=== PATIENT | female | born 1985 | race Caucasian/White ===

== ENCOUNTER → 2018-06-17 | Outpatient (CLI) | payer OTHER ==
[~2018-06-17] MED LIST: CLR10 PO; LETR2TAB PO; MULT-506 PO; ONDA4TAB4 SL; ONDA4TAB7 SL
[2018-06-17 13:29] LABS: HEMATOCRIT 39.4 % (37-47); HEMOGLOBIN 13.5 g/dL (12.0-16.0); MEAN CELL VOLUME 92.1 fL (80-100); MEAN CORPUSCULAR HEMOGLOBIN 31.5 pg (25-34); MEAN CORPUSCULAR HGB CONC 34.3 g/dl (32-36); MEAN PLATELET VOLUME 9.8 fL (7.4-10.4); PLATELET COUNT 311 K/uL (130-400); RED CELL DISTRIBUTION WIDTH CV 12.8 % (11.5-14.5); RED CELL DISTRIBUTION WIDTH SD 43.2 fL (36.4-46.3)
[2018-06-17 14:01] LABS: BLOOD UREA NITROGEN 13 mg/dl (7-18); CARBON DIOXIDE 24 mmol/L (21-32); CREATININE 0.56 mg/dl (0.60-1.20); GLUCOSE 112 mg/dl (70-99); POTASSIUM 3.8 mmol/L (3.5-5.1); SODIUM 134 mmol/L (136-145)
== END | disposition home or self-care (01) ==
LOC: C.LAB 12:24
PROVIDERS: ATTEND Family Medicine
DX: R42 Dizziness and giddiness (principal)

== ENCOUNTER 2021-10-24 05:31 | Inpatient (IN) ==
--- NOTE | 2021-10-17 16:06 | Anesthesiology Consultation ---
Date of Service October 17, 2021 Assessment & Plan (1) Encounter for pre-operative examination: - COVID screening: Per eyeglass frame truer on 10/17/2021: Travel screen negative, no known COVID-19 positive contacts or current COVID-19 related symptoms. Surgeon arranging preop COVID testing, scheduled 10/22/2021 [facility]. Awaiting results. Chart Review Chart Review: entry level buyer initiated History Surgery Operation Date: 10/24/21 09:10 Proposed Procedures p Section (Delivery of Baby Through Abdominal Incision) - Kristin Pacheco, Height/Weight Height: 5 ft 3 in Weight: 83.915 kg Allergies Allergy/AdvReac Type Severity Reaction Status Date / Time metformin Allergy Mild Rash Verified 10/17/21 15:24 neomycin Allergy Mild Rash Verified 10/17/21 15:24 nickel Allergy Mild cellulitus Verified 10/17/21 15:24 type rash polymyxin B Allergy Mild Rash Verified 10/17/21 15:24 aspirin AdvReac Mild Fever Verified 10/17/21 15:24 Medications Home Medications Medication Instructions Recorded Confirmed Last Taken albuterol sulfate 90 mcg/actuation 1 puff INHALATION QID PRN 11/29/20 10/17/21 2 Weeks Ago aerosol inhaler ~11/18/20 calcium 500 mg tablet 500 mg PO PM 11/29/20 10/17/21 12/01/20 20:30 cholecalciferol (vitamin D3) 50 50 mcg PO HS 11/29/20 10/17/21 12/01/20 20:30 mcg (2,000 unit) tablet (Vitamin D3) coQ10 (ubiquinol) 200 mg capsule 200 mg PO HS 11/29/20 10/17/21 12/01/20 20:30 magnesium 250 mg tablet 250 mg PO HS 11/29/20 10/17/21 12/01/20 20:30 [id number]-FA 1 mg 1 tab PO HS 11/29/20 10/17/21 12/01/20 20:30 tablet simplex f 1 dose PO PM 03/28/21 10/17/21 Unknown breast pump #1 ea 08/12/21 10/17/21 Unknown acetaminophen 325 mg tablet 325 mg PO QID PRN 10/17/21 10/17/21 Unknown diphenhydramine HCl 25 mg capsule 25 mg PO HS PRN 10/17/21 10/17/21 Unknown (Benadryl) famotidine 20 mg tablet (Pepcid) 10 mg PO QAM 10/17/21 10/17/21 Unknown Past Medical History Medical History (Updated 10/17/21 @ 16:12 by Sosa Montenegro PA-C) Anxiety and depression Asthma "mild"/rare inhaler use Fifth disease as teen Hx of supraventricular tachycardia remote paroxysmal SVT several years ago s/p unremarkable holter/stress testing, "released" by cardio/no further follow-up recommended Hypothyroidism no longer on meds > resolved Infertility resulting from 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 fertilization Scarlet fever as child Stenosis, cervical spine "mild" Past Family History Family History Mother Family history of diabetes mellitus Heart disease Kidney disease Aunt Dyslipidemia Kidney disease Hypertension Grandmother Breast cancer Colorectal cancer Father Arthritis Grandmother (Maternal) Family hx of colon cancer Grandfather (Maternal) Family hx of colon cancer Other Depression Past Surgical History Surgical History (Updated 10/17/21 @ 16:10 by Sosa Montenegro PA-C) Family history of reaction to anesthesia Mother- severe nausea History of dilatation and curettage History of esophagogastroduodenoscopy (EGD) History of gynecologic surgery egg retrieval History of hysterosalpingogram 2013 History of surgery D&E 12/02/2020 Hx of wisdom tooth extraction Nausea and vomiting after administration of anesthetic agent Social History Smoking Status: Former smoker tobacco type: cigarettes Do You Dip or Chew Tobacco: No Smoking End Date: 2 yrs ago Hx Alcohol Use: No Hx Substance Use: No substance use type: does not use Testing Stress Test Date: 10/28/18 The treadmill exercise test was normal. METS 12.5. MPHR 121%.
--- NOTE | 2021-10-23 12:56 | History & Physical Report ---
Date of Service October 23, 2021 Assessment & Plan (1) Supervision of normal intrauterine in primigravida: Plan: Plan for section due to breech presentation. Reviewed entirety of consent form with patient in office, questions answered. History of Present Illness Chief Complaint: Primary Care Provider: Ghazala Fuchs, 36yo with EDC 10/29/21 scheduled for due to breech presentation. complicated by: IVF with ICSI * Echo-scheduled 07/08/21 - wnl (sln) *Growth US Q4wks @28wks *Weekly NSTs @36wks *Weekly BRANDI's @36wks Low lying placenta resolved at 24 week scan. (ak) AMA *Weekly NST's @ 36wks. BREECH PRESENTATION C/S SCHEDULED FOR 10/24/[address] BETHEA AND DR. FERRARI ASSIST NEEDS COVID TEST ON 10/22/2021-ORDERED Allergies Allergy/AdvReac Type Severity Reaction Status Date / Time metformin Allergy Mild Rash Verified 10/23/21 11:14 neomycin Allergy Mild Rash Verified 10/23/21 11:14 nickel Allergy Mild cellulitus Verified 10/23/21 11:14 type rash polymyxin B Allergy Mild Rash Verified 10/23/21 11:14 aspirin AdvReac Mild Fever Verified 10/23/21 11:14 Home Medications Medication Instructions Recorded Confirmed Type albuterol sulfate 90 mcg/actuation 1 puff INHALATION QID PRN 11/29/20 10/23/21 History aerosol inhaler calcium 500 mg tablet 500 mg PO PM 11/29/20 10/23/21 History cholecalciferol (vitamin D3) 50 50 mcg PO HS 11/29/20 10/23/21 History mcg (2,000 unit) tablet (Vitamin D3) coQ10 (ubiquinol) 200 mg capsule 200 mg PO HS 11/29/20 10/23/21 History magnesium 250 mg tablet 250 mg PO HS 11/29/20 10/23/21 History ykkaxrkt-[id number]-[id number]-FA 1 mg 1 tab PO HS 11/29/20 10/23/21 History tablet simplex f 1 dose PO PM 03/28/21 10/23/21 History breast pump #1 ea 08/12/21 10/23/21 Rx acetaminophen 325 mg tablet 325 mg PO QID PRN 10/17/21 10/23/21 History diphenhydramine HCl 25 mg capsule 25 mg PO HS PRN 10/17/21 10/23/21 History (Benadryl) famotidine 20 mg tablet (Pepcid) 10 mg PO QAM 10/17/21 10/23/21 History Patient History Medical History (Updated 10/17/21 @ 16:12 by Sosa Montenegro PA-C) Anxiety and depression Asthma "mild"/rare inhaler use Fifth disease as teen Hx of supraventricular tachycardia remote paroxysmal SVT several years ago s/p unremarkable holter/stress testing, "released" by cardio/no further follow-up recommended Hypothyroidism no longer on meds > resolved Infertility resulting from in-vitro fertilization Scarlet fever as child Stenosis, cervical spine "mild" Surgical History (Updated 10/17/21 @ 16:10 by Sosa Montenegro PA-C) Family history of reaction to anesthesia Mother- severe nausea History of dilatation and curettage History of esophagogastroduodenoscopy (EGD) History of gynecologic surgery egg retrieval History of hysterosalpingogram 2014 History of surgery D&E 12/02/2020 Hx of wisdom tooth extraction Nausea and vomiting after administration of anesthetic agent Family History Mother Family history of diabetes mellitus Heart disease Kidney disease Aunt Dyslipidemia Kidney disease Hypertension Grandmother Breast cancer Colorectal cancer Father Arthritis Grandmother (Maternal) Family hx of colon cancer Grandfather (Maternal) Family hx of colon cancer Other Depression Social History (Updated 03/28/21 @ 15:27 by Maryam Robledo) Smoking Status: Former smoker Second Hand Exposure: No; Hx Alcohol Use: No Hx Substance Use: No Preferred Language: Slovenian Communication Ability: Effective Director Of Media Required: No Beliefs That Will Affect Care: None marital status: marital status details: Cliff [phone] Current Living Situation: Spouse Current Living Situation Comment: lives with spouse and 1 dog. 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 No s/s chorio or abruption. Skin: no rashes, warm and dry Psychiatric: A+Ox3, euthymic affect Coding Level of Care Code None Diagnoses Supervision of normal intrauterine in primigravida Z34.00
[~2021-10-24 05:31] MED LIST changes: -CLR10 PO; +LACTATED RINGER'S 1,000 ML IV SCH; -LETR2TAB PO; -MULT-506 PO; -ONDA4TAB4 SL; -ONDA4TAB7 SL
[2021-10-24] MEDS ORDERED: CITRIC ACID/SODIUM CITRATE 15 ML UDC PO SCH (06:00)
[2021-10-24] MEDS ORDERED: ceFAZolin 2000MG 2,000 MG/15 ML SYR IV SCH (06:00)
[2021-10-24] MEDS ORDERED: LACTATED RINGER'S 1,000 ML IV SCH ×2 (06:00→09:17)
[2021-10-24] MEDS ORDERED: ceFAZolin 2,000 MG in SYRINGE 0 ML IV SCH (06:00)
[2021-10-24] MEDS ORDERED: MoRPHine SULFATE PF 1 MG/ML 10 ML AMP/VIAL ONE (07:13)
--- NOTE | 2021-10-24 07:25 | History & Physical Bridge Note ---
Date of Service October 24, 2021 History & Physical Bridge Note I have examined the patient, reviewed the History & Physical and in the interval since the performance of the History & Physical I have noted the following changes of clinical significance: no changes noted
[2021-10-24] MEDS ORDERED: PHENYLEPHRINE 100MCG/ML 5ML SYR ONE (08:32)
[2021-10-24] MEDS ORDERED: ePHEDrine sulfate 50 MG/ML SYR ONE (08:32)
[2021-10-24] MEDS ORDERED: LACTATED RINGER'S 500 ML IV PRN (08:38)
[2021-10-24] MEDS ORDERED: NALBUPHINE HCL INJ 10 MG/ML AMP IV PRN (08:38)
[2021-10-24] MEDS ORDERED: diphenhydrAMINE 50 MG/ML VIAL IV PRN (08:38)
[2021-10-24] MEDS ORDERED: NALOXONE HCL 0.08 MG in SYRINGE 1.8 ML IV PRN (08:38)
[2021-10-24] MEDS ORDERED: MoRPHine SULFATE PF 1 MG/ML 10 ML AMP/VIAL INT SPINAL ONE (08:38)
[2021-10-24] MEDS ORDERED: NALOXONE HCL 1 MG in SODIUM CHLORIDE 0.9% 1000ML 1,000 ML IV PRN (08:38)
[2021-10-24] MEDS ORDERED: NALOXONE HCL 0.4 MG/1 ML VIAL/CARP IV PRN (08:38)
[2021-10-24] MEDS ORDERED: ePHEDrine sulfate 50 MG/ML AMP IV PRN ×2 (08:38→08:39)
[2021-10-24] MEDS ORDERED: ATROPINE SULFATE 0.1 MG/ML 10ML SYR IV PRN (08:39)
[2021-10-24] MEDS ORDERED: fentaNYL citrate 100 MCG/2 ML VIAL IV PRN (08:39)
[2021-10-24] MEDS ORDERED: HYDROmorphone INJ 2 MG/ML SYR/VIAL IV PRN (08:39)
[2021-10-24] MEDS ORDERED: SODIUM CHLORIDE 0.9% 1000ML 1,000 ML IV SCH (08:45)
[2021-10-24] MEDS ORDERED: NO NARCOTICS OR SEDATIVES SCH (08:45)
[2021-10-24] MEDS ORDERED: DC INTRASPINAL MORPHINE SCH (08:45)
[2021-10-24] MEDS ORDERED: KETOROLAC 30 MG/ML VIAL ONE (08:48)
[2021-10-24 08:55] LABS: Base Excess Cord Arterial Bld -1.6 mEq/L (-9-1.8); CO2 Cord Arterial Blood 57 mmHg (39.1-73.5); HCO3 Cord Arterial Blood 26 mmol/L (19.7-28.5); PO2 Cord Arterial Blood 14 mmHg (4.1-31.7); pH Cord Arterial Blood 7.28 (7.1-7.38)
[2021-10-24 08:58] LABS: Base Excess Cord Venous Blood -0.7 mEq/L (-7.7-1.9); Cord Venous Blood HCO3 24 mmol/L (18.4-26.8); Cord Venous Blood PCO2 42 mmHg (30.4-57.2); Cord Venous Blood PO2 28 mmHg (14.1-43.3); Cord Venous Blood pH 7.38 (7.20-7.44); O2 Saturation Cord Venous Bld 61.6 % (<68)
[2021-10-24 09:04] LABS: Oxygen Sat Cord Arterial Blood < 60.0 % (<60)
--- NOTE | 2021-10-24 09:07 | Operative Report ---
PG Post Operative Report Pre & Post Diagnosis Operation Date: 10/24/21 07:30 Pre-Op Diagnosis: Breech Presentation Post-Op Diagnosis: Breech Presentation I identified the patient and participated in the time-out.: Yes Procedure Operation Date: 10/24/21 07:30 Actual Procedures Primary Low Transverse Section; Live Female at 0808 in OR # 3(Bilateral) - Kristin Pacheco DO Surgeon Kristin Pacheco DO [employer]le [employer] Laborer Milton Silver MD Estimated Blood Loss 600 Findings Consistent with Post-Op Diagnosis Viable female , Apgars 8/9. Weight 9lb 0/3 oz. Normal appearing uterus, tubes, ovaries. Specimens Placenta, cord blood, cord gas. Drains Gibson clear yellow. Anesthesia Type Spinal Complications none Disposition Accompanied Patient To Recovery: No Indications 36yo @ 39 2/7, breech presentation. Description of Procedure The patient was seen in her labor and delivery room, risks benefits and alternatives to surgery were reviewed. Informed consent obtained. Questions were answered. She was taken to the operating room, spinal anesthesia was administered. She was then prepared and draped in the usual sterile fashion in the supine position with a leftward tilt. Timeout was confirmed. A Pfannenstiel skin incision was made with a scalpel, and carried through to the underlying layer of fascia. Fascia was nicked at midline, and this incision was extended bilaterally. The superior aspect of the fascial incision was grasped with German clamps x2, elevated off the underlying rectus abdominis muscles, and dissected sharply and bluntly. In similar fashion, the inferior aspect of the fascial incision was dissected. The rectus abdominis muscles were , and the peritoneum was entered bluntly digitally. This was extended bilaterally. The bladder flap was taken down carefully using Metzenbaum scissors. Using a new scalpel, a low transverse uterine incision was created. Clear amniotic fluid noted. The infant was delivered from a complete breech presentation. One leg delivered, followed by second leg swept medially, then abdomen, then bilateral arms were swept medially for delivery, then the head was delivered. Spontaneous cry on the field. The cord was doubly clamped and cut, and the was handed off to the waiting dope house operator helper. A segment was retained for cord gases. Cord blood was obtained. The placenta was delivered spontaneously intact. The uterus was exteriorized, and cleared of all clots and debris. The hysterotomy incision was reapproximated using 0 Vicryl in a running locked stitch. A second layer of the same suture was used to imbricate the incision. Posterior uterus was evaluated and normal. The uterus was returned to the abdomen, and gutters were cleared of clots and debris. Excellent hemostasis was observed. The fascial incision was reapproximated using 0 Vicryl in a running stitch. The subcutaneous tissue was irrigated, and reapproximated using 2-0 plain gut in a running stitch. The skin was reapproximated using 4-0 Vicryl in a running subcuticular stitch. Steri-Strips and a bandage were applied. The patient tolerated the procedure well, and will be taken to the recovery area in stable and good condition. I attest to the content of the Intraoperative Record and any orders documented therein. Any exceptions are noted below. OB Procedure Charges 78630
[2021-10-24] MEDS ORDERED: SENNA 8.6 MG TAB PO PRN (09:17)
[2021-10-24] MEDS ORDERED: FAMOTIDINE 10 MG TABLET PO PRN (09:17)
[2021-10-24] MEDS ORDERED: PROMETHAZINE HCL 25 MG in SODIUM CHLORIDE 0.9% 50 ML IV PRN (09:17)
[2021-10-24] MEDS ORDERED: ALBUTEROL HFA 8 GM INHALER INH PRN (09:17)
[2021-10-24] MEDS ORDERED: HYDROCORTISONE ACETATE 25 MG SUPP PR PRN (09:17)
[2021-10-24] MEDS ORDERED: ONDANSETRON INJ 2 MG/ML 2 ML VIAL IV PRN (09:17)
[2021-10-24] MEDS ORDERED: SUPERCREAM 0.870% 15 GM JAR EXT PRN (09:17)
[2021-10-24] MEDS ORDERED: BENZOCAINE 20% AER SPR 82.5 GM CAN EXT PRN (09:17)
[2021-10-24] MEDS ORDERED: DIPHTHERIA/TETANUS/PERTUSSIS 0.5 ML SYR/VIAL IM ONE (10:00)
[2021-10-24] MEDS: OXYTOCIN 30 UNITS in LACTATED RINGER'S 1,000 ML IV SCH ×2 (11:32→17:19)
[2021-10-24] MEDS: SIMETHICONE 80 MG CHEW PO SCH ×3 (15:33→21:32)
[2021-10-24] MEDS: KETOROLAC 30 MG/ML VIAL IV PRN (15:33)
--- NOTE | 2021-10-24 16:13 | Anesthesiology Progress Note ---
Date of Service October 24, 2021 Anesthesia Post Procedure Vital Signs Vital Signs: Temp Pulse Resp BP Pulse Ox 10/24/21 11:18 92 H 123/62 99 10/24/21 11:13 89 99 10/24/21 11:09 103 H 123/63 10/24/21 11:08 101 H 98 10/24/21 11:03 99 H 99 10/24/21 11:00 36.6 C 16 10/24/21 10:59 94 H 115/58 L 10/24/21 10:58 93 H 99 10/24/21 10:53 93 H 99 10/24/21 10:52 100 H 93 10/24/21 10:49 85 127/79 10/24/21 10:48 90 97 10/24/21 10:43 86 99 10/24/21 10:39 93 H 128/72 10/24/21 10:38 97 H 98 10/24/21 10:33 107 H 100 10/24/21 10:29 91 H 136/67 10/24/21 10:28 89 98 10/24/21 10:23 95 H 99 10/24/21 10:18 93 H 98 10/24/21 10:13 87 99 10/24/21 10:09 101 H 118/61 10/24/21 10:08 103 H 99 10/24/21 10:03 86 98 10/24/21 10:00 36.6 C 16 10/24/21 09:59 101 H 109/69 10/24/21 09:58 86 99 10/24/21 09:53 93 H 100 10/24/21 09:50 16 100 10/24/21 09:49 96 H 123/59 L 10/24/21 09:48 95 H 99 10/24/21 09:43 104 H 98 10/24/21 09:40 36.7 C 18 10/24/21 09:39 94 H 123/80 10/24/21 09:38 90 100 10/24/21 09:33 82 99 10/24/21 09:30 16 100 10/24/21 09:29 94 H 125/78 10/24/21 09:28 93 H 98 10/24/21 09:23 80 98 10/24/21 09:20 36.7 C 114 H 18 146/80 H 10/24/21 09:18 89 99 10/24/21 09:13 88 100 10/24/21 09:10 92 H 123/65 10/24/21 09:09 93 H 92 10/24/21 09:08 93 H 96 10/24/21 09:03 81 100 10/24/21 08:59 86 104/70 10/24/21 08:58 84 98 10/24/21 07:34 78 100 10/24/21 07:29 81 99 10/24/21 07:24 81 97 10/24/21 07:19 91 H 97 10/24/21 07:04 83 129/83 10/24/21 05:50 37.5 C 18 10/24/21 05:48 104 H 131/80 Pain Intensity Abdomen: Pain Intensity: 2 Transfer of Care Handoff Completed per policy Notes Mental Status: alert / awake / arousable and participated in evaluation Patient Amnestic to Procedure: Yes Nausea / Vomiting: adequately controlled Pain: adequately controlled Airway Patency, RR, SpO2: stable & adequate BP & HR: stable & adequate Hydration State: stable & adequate Neuraxial Anesthesia: was administered and sensory block is resolving Anesthetic Complications: no major complications apparent
[2021-10-24] MEDS ORDERED: CALCIUM CARBONATE 500 MG CHEWABLE TAB PO PRN (16:24)
[2021-10-24] MEDS: FAMOTIDINE 20 MG TAB PO SCH (17:13)
[2021-10-24 17:34] LABS: Hematocrit (blood only) 28.5 % (37-47); Hemoglobin 9.4 g/dL (12.0-16.0)
[2021-10-24] MEDS ORDERED: LACTATED RINGER'S 1,000 ML IV ONE (17:49)
[2021-10-24] MEDS ORDERED: oxyCODONE/ACETAMINOPHEN 5mg/325mg TAB PO STA (17:57)
[2021-10-24] MEDS: oxyCODONE/ACETAMINOPHEN 5mg/325mg TAB PO PRN (18:07)
[2021-10-24 18:45] LABS: Alanine Aminotransferase 24 (12-78); Albumin Level 1.8 gm/dl (3.4-5.0); Aspartate Aminotransferase 24 U/L (15-37); BUN Creatinine Ratio 29.2 (10-20); Blood Urea Nitrogen 11 mg/dl (7-18); Calcium 8.1 mg/dl (8.5-10.1); Carbon Dioxide 26 mmol/L (21-32); Chloride 105 mmol/L (98-107); Creatinine Clr Calc Pharmacy 222.6 ml/min; Est GFR (African American) > 150.0 ml/min; Est GFR (Non-African American) 139.7 ml/min; Glucose 75 mg/dl (70-99); Potassium 3.1 mmol/L (3.5-5.1); Sodium 137 mmol/L (136-145)
[2021-10-24 18:48] LABS: Albumin Globulin Ratio 0.6 (0.9-2); Alkaline Phosphatase 119 U/L (45-117); Bilirubin,Total 0.4 mg/dl (0.2-1); Total Protein 4.8 gm/dl (6.4-8.2)
[2021-10-24] MEDS ORDERED: METOCLOPRAMIDE HCL INJ 5 MG/ML 2 ML VIAL IV STA (19:35)
--- NOTE | 2021-10-24 20:50 | CT Scan Report ---
CT head/brain wo con CLINICAL HISTORY: 36 years-old Female with Acute OBRIEN. Acute headache TECHNIQUE: Multiple axial CT images of the head were obtained without contrast. A dose lowering tech nique was utilized adhering to the principles of ALARA. CT DOSE: 537.48 mGy.cm COMPARISON: None. FINDINGS: No acute intracranial hemorrhage, midline shift, intra-axial mass, hydrocephalus, territorial ischemi a or abnormal extra-axial collection. 4 mm calcification is noted along the anterior margin of the ri ght middle cranial fossa. The calvarium is intact. The paranasal sinuses, mastoid air cells, and middle ear cavities are clear . IMPRESSION: No acute intracranial abnormality. ACT 112: Negative or not required by law. The above report was generated using voice recognition software. It may contain grammatical, syntax o r spelling errors. Electronically signed by: Otoniel Willis M.D. 10/24/2021 8:48 PM
[2021-10-24] MEDS: DOCUSATE SODIUM 100 MG CAP PO SCH (21:32)
[2021-10-24] MEDS: MAGNESIUM OXIDE 400 MG TAB PO SCH (21:32)
[2021-10-25] MEDS: KETOROLAC 30 MG/ML VIAL IV PRN (02:22)
[2021-10-25] MEDS ORDERED: KETOROLAC 30 MG/ML VIAL IV PRN (02:39)
[2021-10-25] MEDS ORDERED: diphenhydrAMINE 50 MG/ML VIAL IV PRN (02:39)
[2021-10-25] MEDS ORDERED: oxyCODONE/ACETAMINOPHEN 5mg/325mg TAB PO PRN (02:39)
[2021-10-25] MEDS ORDERED: diphenhydrAMINE Capsule 25 MG CAP PO PRN (02:39)
[2021-10-25 06:28] LABS: Basophils # (auto) 0.01 K/uL (0-0.2); Basophils % (auto) 0.1 %; Eosinophils # (auto) 0.09 K/uL (0-0.5); Eosinophils % (auto) 0.8 %; Hematocrit (blood only) 31.4 % (37-47); Immature Granulocytes # (auto) 0.04 K/uL (0.00-0.02); Immature Granulocytes % (auto) 0.3 %; Lymphocytes # (auto) 1.72 K/uL (1.2-3.4); Lymphocytes % (auto) 14.7 %; Mean Corpuscular Hgb Conc 31.8 g/dL (32-36); Mean Corpuscular Volume 97.2 fL (80-100); Mean Platelet Volume 9.4 fL (7.4-10.4); Monocytes % (auto) 6.8 %; Neutrophils # (auto) 9.03 K/uL (1.4-6.5); Neutrophils % (auto) 77.3 %; Platelet Count 223 K/uL (130-400); RDW Coefficient of Variation 14.5 % (11.5-14.5); RDW Standard Deviation 51.8 fL (36.4-46.3); Red Blood Count 3.23 M/uL (4.2-5.4); White Blood Count 11.69 K/uL (4.8-10.8)
[2021-10-25] MEDS: IBUPROFEN 600 MG TAB PO PRN ×4 (08:01→21:04)
[2021-10-25] MEDS: PRENATAL VITAMIN 1 TAB PO SCH (08:02)
[2021-10-25] MEDS: FAMOTIDINE 20 MG TAB PO SCH (08:02)
[2021-10-25] MEDS: oxyCODONE/ACETAMINOPHEN 5mg/325mg TAB PO PRN ×4 (08:02→21:04)
[2021-10-25] MEDS: DOCUSATE SODIUM 100 MG CAP PO SCH ×2 (08:02→21:04)
[2021-10-25] MEDS: FERROUS SULFATE 325 MG TAB PO SCH (08:02)
[2021-10-25] MEDS: SIMETHICONE 80 MG CHEW PO SCH ×4 (08:02→21:03)
--- NOTE | 2021-10-25 08:37 | Obstetrical Progress Note ---
Date of Service October 25, 2021 Assessment & Plan (1) Encounter for care and examination after delivery: Plan: 36yo POD 1 s/p LTCS due to breech at 39 weeks 2 days -Continue routine care -Vitals reviewed- HDS, afebrile -GBS neg -Encourage ambulation, regular diet -Pain control with ibuprofen, acetaminophen PRN -Encourage -Hgb 10 -discharge likely tomorrow -F/u in 6 weeks with OB after discharge Admission and Anticipated Discharge Date Admission Date: October 24, 2021 Supervising Physician Co-Signing Physician Notes Patient seen and evaluated and agree with the above findings and plan. OBRIEN has improved and normal head CT noted. Good UOP. Routine care Subjective Ambulation: yes, to bathroom twice with pain Voiding: yes, de guzman removed 2:30am today Passing Gas: yes BM: not yet Diet Tolerance: regular, had bits of dinner last night, will try to eat more today Lochia: snall Feeding Type: Current Pain Level(1-10): 4 Review of Systems Review of Systems: Mild chills when ambulating. Denies fever. Denies SOB. Denies chest pain. Denies breast pain or discharge. Denies dysuria. Mild headache, rates it a 2/10, improved from overnight. Denies back pain. Mild nausea. Denies vomiting. Physical Exam Physical Exam: General: Alert, oriented, mild distress Cardiac: Regular rate and rhythm, normal S1, S2. No murmurs appreciated. Respiratory: Clear to auscultation, symmetric chest rise and fall. No wheezes or crackles. No increased work of breathing or accessory muscle use Abdomen: Soft, nontender, nondistended. Fundus firm and palpable at umbilicus. No guarding or rebound. Skin: bandages removed, steri strips intact, incision healing well with no signs of infection Extremities: Warm, dry. No lower extremity edema, erythema or swelling. Results & Data ([facility]) Vital Signs (Past 12 Hours) Vital Signs Temp Pulse Resp BP Pulse Ox 10/25/21 04:05 36.8 C 86 16 124/71 97 10/25/21 02:38 18 99 10/25/21 01:15 16 99 10/25/21 00:15 18 99 10/24/21 23:30 36.9 C 87 16 99/66 L 96 10/24/21 23:15 18 96 10/24/21 22:25 18 96 10/24/21 21:25 16 97 Resident Activity Tracking Resident Involvement: Resident Care Provided Care Provided: OB Delivery
[2021-10-25] MEDS ORDERED: bisacodyL 5 MG TABEC PO SCH (20:00)
[2021-10-25] MEDS: MAGNESIUM OXIDE 400 MG TAB PO SCH (21:04)
[2021-10-26] MEDS: oxyCODONE/ACETAMINOPHEN 5mg/325mg TAB PO PRN ×2 (00:54→06:15)
[2021-10-26] MEDS: IBUPROFEN 600 MG TAB PO PRN ×5 (00:55→19:30)
[2021-10-26 06:19] LABS: Hematocrit (blood only) 28.9 % (37-47); Hemoglobin 9.2 g/dL (12.0-16.0)
[2021-10-26] MEDS: SIMETHICONE 80 MG CHEW PO SCH ×4 (08:22→21:57)
[2021-10-26] MEDS: FERROUS SULFATE 325 MG TAB PO SCH (08:22)
[2021-10-26] MEDS: DOCUSATE SODIUM 100 MG CAP PO SCH ×2 (08:22→21:57)
[2021-10-26] MEDS: PRENATAL VITAMIN 1 TAB PO SCH (08:22)
[2021-10-26] MEDS: FAMOTIDINE 20 MG TAB PO SCH (08:23)
--- NOTE | 2021-10-26 08:25 | Obstetrical Progress Note ---
Date of Service October 26, 2021 Assessment & Plan (1) Encounter for care and examination after delivery: POD#2 doing well. Having some difficulty with pain control at incision. Incision itself looks good, however surrounding erythema - concern for cellulitis - will start PO abx Keflex. She is agreeable. Will also do scheduled ibuprofen/tylenol + 5mg oxycodone. Would like to stay until tomorrow. Subjective Ambulation: ambulating normally Voiding: no voiding problems Diet Tolerance:: regular diet Lochia:: Moderate Review of Systems All systems reviewed & are unremarkable except as noted in HPI & below Physical Exam Constitutional WD/WN, vitals as above no acute distress Respiratory normal respiratory effort Cardiovascular Rate/Rhythm: regular rate and regular rhythm Gastrointestinal (Abdomen) Inspection/Auscultation: abdomen normal to inspection; abdomen not distended Percussion/Palpation: abdomen soft Incision CDI, but with red [id number] skin surrounding Genitourinary OB Exam Abdomen: + fundal height Fundus: + firm; not tender Results & Data ([facility]) Vital Signs (Past 12 Hours) Vital Signs Temp Pulse Resp BP 10/26/21 00:55 36.5 C 86 18 116/76
[2021-10-26] MEDS ORDERED: IBUPROFEN 600 MG TAB PO SCH (08:30)
[2021-10-26] MEDS ORDERED: bisacodyL 10 MG SUPP PR PRN (08:54)
[2021-10-26] MEDS: oxyCODONE HCL IR 5 MG TAB (IMMEDIATE RELEASE) PO PRN ×3 (11:20→19:30)
[2021-10-26] MEDS: ACETAMINOPHEN 500 MG TAB PO PRN ×3 (11:30→19:29)
[2021-10-26] MEDS: cephALEXin 500 MG CAP PO SCH ×4 (11:30→21:57)
[2021-10-26] MEDS ORDERED: ACETAMINOPHEN 500 MG TAB PO SCH (14:00)
[2021-10-26] MEDS ORDERED: Nursing to Pharmacy Communication SCH (14:45)
[2021-10-26] MEDS: MAGNESIUM OXIDE 400 MG TAB PO SCH (21:57)
[2021-10-27] MEDS: oxyCODONE HCL IR 5 MG TAB (IMMEDIATE RELEASE) PO PRN ×6 (00:13→21:34)
[2021-10-27] MEDS: IBUPROFEN 600 MG TAB PO PRN ×6 (00:13→21:34)
[2021-10-27] MEDS: ACETAMINOPHEN 500 MG TAB PO PRN ×5 (04:16→21:34)
--- NOTE | 2021-10-27 06:31 | Obstetrical Progress Note ---
Date of Service October 27, 2021 Assessment & Plan (1) Encounter for care and examination after delivery: Plan: 36yo POD 3 s/p LTCS due to breech at 39 weeks 2 days -Continue routine care -Vitals reviewed- HDS, afebrile -GBS neg -Encourage ambulation, regular diet -Pain control with ibuprofen, acetaminophen, oxy -Encourage -Hgb 9.2 yesterday, stable -cont. Keflex for cellulitis, will finish course in outpatient setting -F/u in 6 weeks with OB after discharge Admission and Anticipated Discharge Date Admission Date: October 24, 2021 Supervising Physician Co-Signing Physician Notes Resident Physician Supervision Note: I interviewed and examined the patient. Discussed with Dr. Carson and agree with findings and plan as documented in the note. Any exceptions or clarifications are listed here: POD#3 doing well. Will plan to send home with keflex for c ellulitis - incision itself looks healthy, does not appear to be infected. Rx percocet sent. Reviewed instructions. She plans to follow up with prescribing PCP for anxiety. Documented By: Kristin Pacheco, Subjective Ambulation: yes Voiding: yes Passing Gas: yes BM: not yet Diet Tolerance: regular Lochia: small Feeding Type: Current Pain Level(1-10): 3 with medication, mostly on ambulation Review of Systems Review of Systems: Denies fever and chills. Mild SOB when walking, may be due to deconditioning Denies chest pain. Denies breast pain or discharge. Denies dysuria. Mild headache, improving. Mild nausea. Denies vomiting. Physical Exam Physical Exam: General: Alert, oriented, mild distress Cardiac: Regular rate and rhythm, normal S1, S2. No murmurs appreciated. Respiratory: Clear to auscultation, symmetric chest rise and fall. No wheezes or crackles. No increased work of breathing or accessory muscle use Abdomen: Soft, nontender, nondistended. Fundus firm and palpable at umbilicus. No guarding or rebound. Skin: incision healing well with no signs of infection at incision site, +surrounding abdominal cellulitis marked with ink yesterday which may be mildly extending past borders but only mildly TTP with deep palpation Extremities: Warm, dry. No lower extremity edema, erythema or swelling. Results & Data ([facility]) Vital Signs (Past 12 Hours) Vital Signs Temp Pulse Resp BP Pulse Ox 10/27/21 00:05 36.8 C 80 20 126/82 98 Resident Activity Tracking Resident Involvement: Resident Care Provided Care Provided: OB Delivery
[2021-10-27] MEDS: DOCUSATE SODIUM 100 MG CAP PO SCH ×2 (08:37→21:33)
[2021-10-27] MEDS: PRENATAL VITAMIN 1 TAB PO SCH (08:37)
[2021-10-27] MEDS: SIMETHICONE 80 MG CHEW PO SCH ×4 (08:37→21:33)
[2021-10-27] MEDS: FERROUS SULFATE 325 MG TAB PO SCH (08:37)
[2021-10-27] MEDS: MAGNESIUM HYDROXIDE SUSP 30 ML UDC PO PRN ×3 (08:38→21:36)
[2021-10-27] MEDS: cephALEXin 500 MG CAP PO SCH ×2 (08:40→13:31)
--- NOTE | 2021-10-27 13:58 | Obstetrical Progress Note ---
Date of Service October 27, 2021 Asked to assess incision as the redness seems to be spreading I discussed with the patient had marked the incision earlier in the morning on rounds and it seems to be spreading beyond this on inspection today there is diffuse redness around the incision there is no breakage or defects in the incision I see no signs of necrotizing fasciitis this is worsened despite being on Keflex I will switch her to an IV antibiotic regimen Unasyn we'll see how she responds to this Assessment & Plan Admission and Anticipated Discharge Date Admission Date: October 24, 2021 Results & Data ([facility]) Vital Signs (Past 12 Hours) Vital Signs Temp Pulse Resp BP Pulse Ox 10/27/21 10:16 97.2 F L 84 20 129/86 98 10/27/21 08:05 97.2 F L 84 20 129/86 PG Care Time/CCT Total # of Minutes Spent Total Time Spent with Patient: Total time spent is greater than 50% in coordination of care (as documented) at patient's floor/unit and/or counseling patient: Coding Level of Care Code None
[2021-10-27] MEDS: AMPICILLIN/SULBACTAM SOD 1,500 MG in 0.9 % SODIUM CHLORIDE 100 ML IV SCH ×2 (15:02→20:46)
[2021-10-27] MEDS: FAMOTIDINE 20 MG TAB PO SCH (15:07)
[2021-10-27] MEDS: MAGNESIUM OXIDE 400 MG TAB PO SCH (21:37)
[2021-10-28] MEDS: IBUPROFEN 600 MG TAB PO PRN ×5 (02:00→20:12)
[2021-10-28] MEDS: AMPICILLIN/SULBACTAM SOD 1,500 MG in 0.9 % SODIUM CHLORIDE 100 ML IV SCH ×4 (02:00→20:04)
[2021-10-28] MEDS: ACETAMINOPHEN 500 MG TAB PO PRN ×5 (02:00→20:13)
[2021-10-28] MEDS: oxyCODONE HCL IR 5 MG TAB (IMMEDIATE RELEASE) PO PRN ×5 (02:01→20:13)
--- NOTE | 2021-10-28 07:57 | Obstetrical Progress Note ---
Date of Service October 28, 2021 Assessment & Plan (1) Encounter for care and examination after delivery: Plan: 36yo POD 4 s/p LTCS due to breech at 39 weeks 2 days -Continue routine care -Vitals reviewed- HDS, afebrile -GBS neg -Encourage ambulation, regular diet -Pain control with ibuprofen, acetaminophen, oxy -Encourage -Hgb 9.2 (12/), stable -cont. Unasyn; will most likely discharge on Augmentin since Keflex did not seem to work -discharge possibly today -F/u in 6 weeks with OB after discharge Admission and Anticipated Discharge Date Admission Date: October 24, 2021 Supervising Physician Co-Signing Physician Notes Resident Physician Supervision Note: I was present with Dr. Carson during the history and exam. I discussed the case with the resident and agree with the findings and plan as documented in the note. Any exceptions or clarifications are listed here: [None] Documented By: Marimar Suarez MD, FACOG Subjective Ambulation: yes Voiding: yes Passing Gas: yes BM: yes Diet Tolerance: regular Lochia: small Feeding Type: Current Pain Level(1-10): 2, mostly near incision site Review of Systems Review of Systems: Denies fever and chills. Denies SOB. Denies chest pain. Denies breast pain or discharge. Denies dysuria. Mild overnight headache, improving. Mild nausea. Denies vomiting. Physical Exam Physical Exam: General: Alert, oriented, mild distress Cardiac: Regular rate and rhythm, normal S1, S2. No murmurs appreciated. Respiratory: Clear to auscultation, symmetric chest rise and fall. No wheezes or crackles. No increased work of breathing or accessory muscle use Abdomen: Soft, nontender, nondistended. Fundus firm and palpable 2cm below umbilicus. No guarding or rebound. Skin: incision healing well with no signs of infection at incision site, +surrounding abdominal cellulitis marked with ink yesterday significantly improved today with less erythema, decreased warmth, and minimally tender to deep palpation Extremities: Warm, dry. No lower extremity edema, erythema or swelling. Results & Data ([facility]) Vital Signs (Past 12 Hours) Vital Signs Temp Pulse Resp BP Pulse Ox 10/28/21 01:50 36.8 C 92 H 18 128/80 10/27/21 20:20 36.8 C 79 18 131/81 99 Resident Activity Tracking Resident Involvement: Resident Care Provided Care Provided: OB Delivery
[2021-10-28] MEDS: DOCUSATE SODIUM 100 MG CAP PO SCH ×2 (08:19→20:04)
[2021-10-28] MEDS: SIMETHICONE 80 MG CHEW PO SCH ×4 (08:19→20:04)
[2021-10-28] MEDS: PRENATAL VITAMIN 1 TAB PO SCH (08:19)
[2021-10-28] MEDS: FERROUS SULFATE 325 MG TAB PO SCH (08:19)
[2021-10-28] MEDS: FAMOTIDINE 20 MG TAB PO SCH (08:20)
--- NOTE | 2021-10-28 16:21 | Communication Note ---
Date of Service: October 28, 2021 I was asked to re-examine the patient's abdomen as the redness surrounding the incision has extended to the skin on the sides of her abdomen. Per Dr. Perez's evaluation earlier, since starting Unasyn the erythema surrounding the incision has markedly decreased. She has a fine red raised rash around her umbilicus which appeared after she was starting on Keflex. This area is still a little pruritic but is getting better. The redness on her abdomen extends around to her lower back but ends abruptly at the edge of her underwear. patient appears well and has no pain or itching outside of expected incisional discomfort. will continue Unasyn for now and re-evaluate in the morning. Patient and are agreeable to this plan.
--- NOTE | 2021-10-28 16:23 | Communication Note ---
Date of Service: October 28, 2021 I should also note that she has remained afebrile during her hospital stay and there is drainage from her incision nor is there any sign of a fluid collection surround the incision.
[2021-10-28] MEDS: MAGNESIUM OXIDE 400 MG TAB PO SCH (20:04)
[2021-10-28] MEDS: MAGNESIUM HYDROXIDE SUSP 30 ML UDC PO PRN (20:08)
[2021-10-29] MEDS: oxyCODONE HCL IR 5 MG TAB (IMMEDIATE RELEASE) PO PRN ×3 (00:27→10:47)
[2021-10-29] MEDS: IBUPROFEN 600 MG TAB PO PRN ×3 (00:28→10:46)
[2021-10-29] MEDS: ACETAMINOPHEN 500 MG TAB PO PRN ×3 (00:29→10:47)
[2021-10-29] MEDS: AMPICILLIN/SULBACTAM SOD 1,500 MG in 0.9 % SODIUM CHLORIDE 100 ML IV SCH ×2 (02:00→08:24)
--- NOTE | 2021-10-29 06:43 | Obstetrical Progress Note ---
Date of Service October 29, 2021 Assessment & Plan (1) Encounter for care and examination after delivery: Plan: 36yo POD 5 s/p LTCS due to breech at 39 weeks 2 days -Continue routine care -Vitals reviewed- HDS, afebrile -GBS neg -Encourage ambulation, regular diet -Pain control with ibuprofen, acetaminophen, oxy -Encourage -Hgb 9.2 (12/2), stable -discharge likely today -F/u in 6 weeks with OB after discharge 2) Rash on stomach -ddx resolving cellulitis versus reaction to keflex -was originally on Keflex which did not improve the rash -switched to unasyn 2 days ago, rash appears to be resolving -will discharge on course of augmentin -f/u with OB next week for incision and rash check Admission and Anticipated Discharge Date Admission Date: October 24, 2021 Supervising Physician Co-Signing Physician Notes Resident Physician Supervision Note: I was present with Dr. Carson during the history and exam. I discussed the case with the resident and agree with the findings and plan as documented in the note. Any exceptions or clarifications are listed here: [None] Documented By: Mary Jo Abebe MD, FACOG Subjective Ambulation: yes Voiding: yes Passing Gas: yes BM: yes Diet Tolerance: regular Lochia: small Feeding Type: Current Pain Level(1-10): 1 Review of Systems Review of Systems: Denies fever or chills. Denies SOB. Denies chest pain. Denies breast pain or discharge. Denies dysuria. Denies headache. Denies nausea or vomiting. Physical Exam Physical Exam: General: Alert, oriented, mild distress Cardiac: Regular rate and rhythm, normal S1, S2. No murmurs appreciated. Respiratory: Clear to auscultation, symmetric chest rise and fall. No wheezes or crackles. No increased work of breathing or accessory muscle use Abdomen: Soft, nontender, nondistended. Fundus firm and palpable 2cm below umbilicus. No guarding or rebound. Skin: incision healing well with no signs of infection at incision site, +surrounding abdominal questionable cellulitis previously marked with ink yesterday, regressing within borders, nontender to palpation, minimally erythematous Extremities: Warm, dry. No lower extremity edema, erythema or swelling. Results & Data ([facility]) Vital Signs (Past 12 Hours) Vital Signs Temp Pulse Resp BP Pulse Ox 10/29/21 02:30 36.7 C 10/29/21 00:15 36.6 C 90 16 116/82 98 10/28/21 19:50 36.8 C 85 16 118/80 97 Resident Activity Tracking Resident Involvement: Resident Care Provided Care Provided: OB Delivery
[2021-10-29] MEDS: DOCUSATE SODIUM 100 MG CAP PO SCH (08:24)
[2021-10-29] MEDS: PRENATAL VITAMIN 1 TAB PO SCH (08:24)
[2021-10-29] MEDS: FERROUS SULFATE 325 MG TAB PO SCH (08:24)
[2021-10-29] MEDS: SIMETHICONE 80 MG CHEW PO SCH (08:24)
[2021-10-29] MEDS: FAMOTIDINE 20 MG TAB PO SCH (08:25)
--- NOTE | 2021-10-31 14:01 | Discharge Summary ---
Date of Service October 31, 2021 Discharge Data Consultations 10/24/21 05:07 Consult Anesthesiology Stat Procedures Performed Operation Date: 10/24/21 07:30 Actual Procedures p Section; Live Female Infant at 0808 in OR # 3(Bilateral) - Kristin Pacheco DO Hospital Course (1) Supervision of normal intrauterine in primigravida: Admitted after scheduled for breech presentation. Developed redness on abdomen - likely cellulitis as incision did not appear to be involved, treated initially with keflex, then switched to unasyn. After Unasyn, this improved. DC home POD5. Followup 1w office for incision check. Coding Level of Care Code None Diagnoses Supervision of normal intrauterine in primigravida Z34.00
== END 2021-10-29 13:15 | disposition home or self-care (01) | DRG 788 ==
LOC: 4S1 05:31 → EDSTATUS 09:10 → 4S2 11:57
DX: Z3A.39 39 weeks gestation of pregnancy; Z37.0 Single live birth; O32.1XX0 Maternal care for breech presentation, not applicable or unspecified

== ENCOUNTER 2024-05-13 03:56 | Observation (INO) ==
--- NOTE | 2024-05-13 04:42 | History & Physical Report ---
Date of Service May 13, 2024 Assessment & Plan (1) Abdominal pain affecting : (2) with 32 completed weeks gestation: Plan Patient represents with worsening pain. She is now writhing in the bed and describing pain that is more consistent with stone. However, cannot r/o appendicitis. therefore, have decided to obtain a CT scan of the abd/pelvis with iv contrast to evaluate for both. The fetus is category one. again, no evidence of labor or abruption. Patient agreeable to CT scan. Plan ivf hydration and iv pain meds at present. History of Present Illness Chief Complaint: rlq/flank pain Primary Care Provider: Ghazala Fuchs DO Patient is a 38yowf with iup at 32 weeks who returns to labor and delivery with worsening flank/rlq pain. Patient is now writhing in the bed. Notes the pain really got worse, cannot get comfortable, mostly on the ri ght side. Notes good fm. Notes more n/v since this has occurred. Notes that the pain is always there but there are waves where it is much more severe. Does not note pain in area of her c/s incision. and Delivery Plans IVF/ICSI * [place] (03/07/[place] [facility] [place] *Growth US Q4wks @28wks *Weekly NSTs @36wks *Weekly BRANDI's @36wks(ICSI only) ECHO NORMAL AMA Weekly NST's @ 36 weeks Previous *declines , plans repeat c/s C/S SCHEDULED FOR 07/03/[address] YE[address]ER AND [address] HERNADEZ ASSIST Allergies Allergy/AdvReac Type Severity Reaction Status Date / Time cephalexin [From Keflex] Allergy Intermediate Verified 05/01/24 15:14 metformin Allergy Mild Rash Verified 05/01/24 15:14 neomycin Allergy Mild Rash Verified 05/01/24 15:14 nickel Allergy Mild cellulitus Verified 05/01/24 15:14 type rash polymyxin B Allergy Mild Rash Verified 05/01/24 15:14 aspirin AdvReac Mild Fever Verified 05/01/24 15:14 Home Medications Medication Instructions Recorded Confirmed Type albuterol sulfate 90 mcg/actuation 2 puff inhalation Q4 PRN Wheezing 03/08/23 05/12/24 History aerosol inhaler sertraline 100 mg tablet 100 mg PO DAILY 03/08/23 05/12/24 History doxylamine succinate [Unisom 0.5 tab PO HS 12/13/23 05/12/24 History (doxylamine)] 21-iron fu-folic acid 1 tab PO DAILY 12/13/23 05/12/24 History [ Complete] pyridoxine (vitamin B6) 1 tab PO DAILY 12/13/23 05/12/24 History docusate sodium [Colace] 1 tab PO DAILY 02/29/24 05/12/24 History hydrocortisone 2.5 % topical cream [address] DAILY PRN hemorrhoids 05/01/24 05/12/24 Rx with perineal applicator #30 grams (Anusol-HC) ondansetron 4 mg disintegrating 4 mg PO Q8H PRN nausea and 05/11/24 05/12/24 Rx tablet vomiting #20 tabs Patient History Medical History Encounter for pre-operative examination resulting from in-vitro fertilization Scarlet fever as child Fifth disease as teen Supervision of normal intrauterine in primigravida Hypothyroidism no longer on meds > resolved Stenosis, cervical spine "mild" Anxiety and depression Hx of supraventricular tachycardia remote paroxysmal SVT several years ago s/p unremarkable holter/stress testing, "released" by cardio/no further follow-up recommended Asthma "mild"/rare inhaler use Infertility Surgical History History of surgery D&E 12/02/2020 History of dilatation and curettage Family history of reaction to anesthesia Mother- severe nausea Nausea and vomiting after administration of anesthetic agent History of esophagogastroduodenoscopy (EGD) History of gynecologic surgery egg retrieval History of hysterosalpingogram 2013 Hx of wisdom tooth extraction Family History Mother Family history of diabetes mellitus Heart disease Kidney disease Aunt Dyslipidemia Kidney disease Hypertension Grandmother Breast cancer Colorectal cancer Father Arthritis Grandmother (Maternal) Family hx of colon cancer Grandfather (Maternal) Family hx of colon cancer Other Depression Social History Smoking Status: Never smoker Second Hand Exposure: No; Do You Dip or Chew Tobacco: No; Hx Alcohol Use: No Hx Substance Use: No Preferred Language: Ukrainian Communication Ability: Effective Plumbing Service Technician Required: No Beliefs That Will Affect Care: None marital status: marital status details: Cliff Gan(40) [phone] Current Living Situation: Spouse and Family Current Living Situation Comment: lives with spouse, child, no pets current occupational status: employed 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 Results & Data Vital Signs (Past 12 Hours) Vital Signs Temp Pulse Resp BP 05/13/24 04:20 18 05/13/24 04:20 36.7 C 18 05/13/24 04:17 146 H 136/91 Coding Level of Care Code None Diagnoses Abdominal pain affecting O26.899; R10.9 with 32 completed weeks gestation Z3A.32
[2024-05-13] MEDS: LACTATED RINGER'S 1,000 ML IV PRN (04:44)
[2024-05-13] MEDS: MEPERIDINE HCL 25 MG/ML CARP/VIAL IV ONE (04:49)
[2024-05-13] MEDS: PROMETHAZINE HCL 25 MG in SODIUM CHLORIDE 0.9% 50 ML IV STA (05:00)
[2024-05-13 05:29] LABS: Basophils # (auto) 0.03 K/uL (0.00-0.20); Basophils % (auto) 0.2 %; Eosinophils # (auto) 0.07 K/uL (0.00-0.50); Eosinophils % (auto) 0.6 %; Hematocrit (blood only) 31.4 % (37.0-47.0); Hemoglobin 10.7 g/dl (12.0-16.0); Immature Granulocytes # (auto) 0.11 K/uL (0.01-0.20); Immature Granulocytes % (auto) 0.9 %; Lymphocytes # (auto) 0.69 K/uL (1.20-3.40); Lymphocytes % (auto) 5.5 %; Mean Corpuscular Hemoglobin 30.8 pg (25.0-34.0); Mean Corpuscular Hgb Conc 34.1 g/dL (32.0-36.0); Mean Corpuscular Volume 90.5 fL (80.0-100.0); Mean Platelet Volume 9.7 fL (9.4-12.4); Monocytes # (auto) 0.71 K/uL (0.11-0.59); Monocytes % (auto) 5.7 %; Neutrophils # (auto) 10.94 K/uL (1.40-6.50); Neutrophils % (auto) 87.1 %; Platelet Count 216 K/uL (130-400); RDW Coefficient of Variation 14.1 % (11.5-14.5); RDW Standard Deviation 45.4 fL (36.4-46.3); Red Blood Count 3.47 M/uL (4.20-5.40); White Blood Count 12.55 K/ul (4.8-10.8)
[2024-05-13 05:40] LABS: Alanine Aminotransferase 27 U/L (7-52); Albumin Globulin Ratio 1.1 (0.9-2); Albumin Level 3.2 gm/dl (3.4-5.0); Alkaline Phosphatase 74 U/L (34-104); Anion Gap 11 (3-11); Aspartate Aminotransferase 27 U/L (13-39); BUN Creatinine Ratio 10.5 (10-20); Bilirubin,Total 0.4 mg/dl (0.2-1.0); Blood Urea Nitrogen 4 mg/dl (6-23); Carbon Dioxide 22 mmol/L (21-32); Chloride 102 mmol/L (98-107); Est GFR (African American) > 150.0 ml/min; Est GFR (Non-African American) 135.3 ml/min; Glucose 102 mg/dl (70-99(Fasting)); Potassium 2.8 mmol/L (3.5-5.1); Sodium 135 mmol/L (136-145); Total Protein 6.2 gm/dl (6.0-8.3)
[2024-05-13 05:45] LABS: Appearance Urine Clear (Clear); Bacteria Urine Automated None Seen (None Seen); Bilirubin Urine Negative (Negative); Blood Urine Negative (Negative); Cast Urine Automated 0-2 /lpf (0-2); Color Urine Yellow; Epithelial Cell Urine Auto 0-2 /hpf (0-2); Glucose Urine UA Negative (Negative); Ketones Urine 3+ (Negative); Leukocyte Esterase Urine Negative (Negative); Nitrite Urine Negative (Negative); Protein Urine 1+ (Negative); RBC Urine Automated 0-2 /hpf (0-2); Specific Gravity Urine 1.017 (1.000-1.030); Urobilinogen Urine Negative (Negative); WBC Urine Automated 0-5 /hpf (0-5); pH Urine 8.5 (4.5-7.5)
[2024-05-13] MEDS: OPTIRAY 320 100ml IV ONE (05:49)
--- NOTE | 2024-05-13 06:14 | Obstetrical Progress Note ---
Date of Service May 13, 2024 Assessment & Plan (1) Abdominal pain affecting : Plan Again writhing like she has a stone. Awaiting results of CT scan. Replace potassium. May need to get some other services involved in her care. Fetus overall reassuring and again, no evidence of labor. Admission and Anticipated Discharge Date Admission Date: May 13, 2024 Subjective Patient is back from CT. Labs reviewed. WBC is actually lower than before. 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 She is again writhing in the bed. Will attempt to treat pain. Physical Exam Physical Exam: writhing cx--deferred toco--no contractions efm--140s with mod variability, accels present Results & Data Vital Signs (Past 12 Hours) Vital Signs Temp Pulse Resp BP 05/13/24 05:02 126 H 116/72 05/13/24 04:30 36.7 C 18 05/13/24 04:20 18 05/13/24 04:20 36.7 C 18 05/13/24 04:17 146 H 136/91 PG Care Time/CCT Total # of Minutes Spent Total Time Spent with Patient: Total time spent is greater than 50% in coordination of care (as documented) at patient's floor/unit and/or counseling patient: Coding Level of Care Code 25791 SUB INP/OBS CARE 1/25MIN Diagnoses Abdominal pain affecting O26.899; R10.9
[2024-05-13] MEDS: SODIUM CHLOR 0.45% + 20MEQ KCL 20 MEQ/1,000 ML BAG IV SCH (06:18)
[2024-05-13] MEDS: HYDROmorphone INJ 0.5 MG/0.5 ML SYR IV PRN (06:19)
[2024-05-13] MEDS: POTASSIUM CHLORIDE / WTR 10 MEQ/100 ML PLCT IV SCH (07:13)
--- NOTE | 2024-05-13 08:17 | CT Scan Report ---
CT OF THE ABDOMEN AND PELVIS WITH CONTRAST CLINICAL HISTORY: 32 weeks, rlq/flank pain COMPARISON STUDY: CT of the abdomen and pelvis October 27, 2013. TECHNIQUE: Following IV administration of 94 mL of Optiray, axial images of the abdomen and pelvis we re obtained from the lung bases to the proximal femurs. Images were reviewed in the axial, sagittal, and coronal planes. IV contrast was administered without complication. Automated exposure control wa s utilized for the study. A dose lowering technique was utilized adhering to the principles of ALARA . CT DOSE: 1322.4 mGy.cm FINDINGS: Lung bases are unremarkable. No pneumatosis, free air or portal venous gas is present. Ther e is a small hernia. Liver, spleen, adrenal glands, kidneys and pancreas are normal. There is no bili larry or pancreatic ductal dilatation. There is no peripancreatic or pericholecystic infiltration. Ther e is no hydronephrosis. There are no urinary calculi. The appendix is normal. The caliber and wall th ickness of small and large bowel are normal. Intrauterine gestation is noted. There is breech present ation. No placental abnormality is identified by CT. There is no free fluid. No lymphadenopathy is pr esent. Major vasculature is patent. IMPRESSION: 1. No acute process within the abdomen or pelvis. 2. Normal appendix. No bowel obstruction. No bowel wall thickening. 3. No urinary calculi or hydronephrosis. 4. Intrauterine gestation. Breech presentation. ACT 112: Negative or not required by law. Electronically signed by: Jorge Rubio M.D. 05/13/2024 8:15 AM
[2024-05-13] MEDS: ACETAMINOPHEN 1,000 MG/100 ML VIAL IV STA (08:30)
[2024-05-13 10:52] LABS: Anion Gap 11 (3-11); BUN Creatinine Ratio 10.5 (10-20); Blood Urea Nitrogen 4 mg/dl (6-23); Calcium 8.5 mg/dl (8.6-10.3); Carbon Dioxide 22 mmol/L (21-32); Chloride 103 mmol/L (98-107); Creatinine Clr Calc Pharmacy 213.8 ml/min; Est GFR (African American) > 150.0 ml/min; Est GFR (Non-African American) 135.3 ml/min; Glucose 91 mg/dl (70-99(Fasting)); Potassium 3.2 mmol/L (3.5-5.1); Sodium 136 mmol/L (136-145)
[2024-05-13] MEDS: oxyCODONE HCL IR 5 MG TAB (IMMEDIATE RELEASE) PO PRN (11:47)
[2024-05-13] MEDS: ONDANSETRON 4 MG OD TAB PO PRN (11:47)
[2024-05-13] MEDS: LACTATED RINGER'S 1,000 ML IV SCH (12:19)
[2024-05-13] MEDS ORDERED: Nursing to Pharmacy Communication SCH (13:45)
--- NOTE | 2024-05-13 14:15 | Obstetrical Progress Note ---
Date of Service May 13, 2024 Assessment & Plan Admission and Anticipated Discharge Date Admission Date: May 13, 2024 Subjective Presented to bedside to evaluate patient. Patient was noted to be sleeping comfortably. Will reassess upon waking Results & Data Vital Signs (Past 12 Hours) Vital Signs Temp Pulse Pulse Resp BP BP Pulse Ox 05/13/24 10:27 36.9 C 97 H 19 117/64 98 05/13/24 07:21 116 H 113/70 05/13/24 07:15 36.7 C 18 05/13/24 05:02 126 H 116/72 05/13/24 04:30 36.7 C 18 05/13/24 04:20 18 05/13/24 04:20 36.7 C 18 05/13/24 04:17 146 H 136/91 O2 Del Method 05/13/24 10:27 Room Air 05/13/24 07:21 05/13/24 07:15 05/13/24 05:02 05/13/24 04:30 05/13/24 04:20 05/13/24 04:20 05/13/24 04:17 PG Care Time/CCT Total # of Minutes Spent Total Time Spent with Patient: Total time spent is greater than 50% in coordination of care (as documented) at patient's floor/unit and/or counseling patient: Coding Level of Care Code None
[2024-05-13] MEDS: FAMOTIDINE 20 MG TAB PO SCH (14:24)
[2024-05-13] MEDS: ACETAMINOPHEN 500 MG TAB PO SCH ×2 (14:56→17:38)
[2024-05-13] MEDS: CALCIUM CARBONATE 500 MG CHEWABLE TAB PO PRN (15:08)
[2024-05-13] MEDS: POLYETHYLENE (MIRALAX) 17 GM PACK PO PRN (17:38)
[2024-05-13] MEDS: DOCUSATE SODIUM 100 MG CAP PO SCH (20:56)
--- NOTE | 2024-05-14 09:08 | Obstetrical Progress Note ---
Date of Service May 14, 2024 Assessment & Plan (1) with 32 completed weeks gestation: (2) Abdominal pain affecting : (3) Calculus of kidney affecting in third trimester: Plan Shu is a 38-year-old G3, P1 currently at 32 weeks 1 day gestational age with acute colicky pain from kidney stones. Several small stones have been collected from straining urine consistent with suspected diagnosis. Discontinued fluids this morning. Shu is stable for discharge with plan for home pain management. Will send oxycodone with plan for 1-2 tabs every 4 hours as needed. Discussed continuing with Tylenol 1000 mg every 8 hours and keep up on fluids. Discussed findings from evaluation again today and answered questions. Reviewed precautions related to kidney stones and indications for urgent and emergent care. Umbilical pain is likely related to and noted hernia. Stable for discharge with plan to follow-up this week in clinic Admission and Anticipated Discharge Date Admission Date: May 13, 2024 Subjective No acute events overnight. Reports intermittent pain continue on the right flank and at umbilicus. Report pain is at present improved compared to prior but has been waxing and waning since onset. Needed a dose of IV Dilaudid overnight but has otherwise been maintained on oral medications. No fevers chills or night sweats noted. I reviewed findings from evaluation and the overall reassuring nature of the findings. Discussed the likely culprit being small kidney stone. Urine straining has collected several very small kidney stones. Physical Exam Genitourinary: NST reactive Results & Data Vital Signs (Past 12 Hours) Vital Signs Temp Pulse Resp BP Pulse Ox O2 Del Method 05/14/24 07:14 36.7 C 91 H 13 113/65 98 Room Air 05/14/24 03:00 36.6 C 90 18 104/59 L 93 Room Air 05/13/24 22:54 36.8 C 79 16 94/53 L 98 Room Air 05/13/24 20:50 36.8 C 97 H 18 101/64 97 Room Air PG Care Time/CCT Total # of Minutes Spent Total Time Spent with Patient: Total time spent is greater than 50% in coordination of care (as documented) at patient's floor/unit and/or counseling patient: Coding Level of Care Code 11866 SUB INP/OBS CARE 2/35MIN Diagnoses with 32 completed weeks gestation Z3A.32 Abdominal pain affecting O26.899; R10.9 Calculus of kidney affecting in third trimester O99.891; N20.0
--- NOTE | 2024-05-15 16:03 | Discharge Summary ---
Date of Service May 15, 2024 Admission HPI Per Admitting Provider Patient is a 38yowf with iup at 32 weeks who returns to labor and delivery with worsening flank/rlq pain. Patient is now writhing in the bed. Notes the pain really got worse, cannot get comfortable, mostly on the ri ght side. Notes good fm. Notes more n/v since this has occurred. Notes that the pain is always there but there are waves where it is much more severe. Does not note pain in area of her c/s incision. and Delivery Plans [place]ICSI * [place] [facility] [place]Growth [place] Q4wks @28wks *Weekly NSTs @36wks *Weekly BRANDI's @36wks(ICSI only) ECHO NORMAL AMA Weekly NST's @ 36 weeks Previous *declines , plans repeat c/s C/S SCHEDULED FOR 07/03/[address] YEAGER AND [address] HERNADEZ ASSIST Hospital Course (1) Calculus of kidney affecting in third trimester: (2) with 32 completed weeks gestation: Plan The patient was admitted for pain management. Given elevated WBC and symptoms that although most likely consistent with stone, could be appendicitis, she underwent a CT. This showed a normal appendix, no stone, no hydronephrosis. Through the course of observation, she passed several small stones. She was aggressively hydrated. the following am she was feeling much better and was d/c home with oral pain medications, aggressive po hydrations, straining urine. Precautions reviewed. Coding Level of Care Code None Diagnoses Calculus of kidney affecting in third trimester O99.891; N20.0 with 32 completed weeks gestation Z3A.32
== END 2024-05-14 12:00 | disposition home or self-care (01) ==
LOC: OPB 03:56 → 4S1 03:56 → 4E1 10:37

== ENCOUNTER 2024-06-23 16:33 | Inpatient (IN) ==
[2024-06-23] MEDS ORDERED: LACTATED RINGER'S 1,000 ML IV SCH ×3 (16:45→19:47)
--- NOTE | 2024-06-23 16:55 | History & Physical Report ---
Date of Service June 23, 2024 Assessment & Plan (1) Preeclampsia: (2) with 37 weeks completed gestation: (3) Previous delivery affecting , antepartum: (4) resulting from in-vitro fertilization: Plan Patient presents now and fulfills the criteria for preeclampsia. she is a previous c/s and desires repeat. fetus category one. Does not have severe features. The risks of surgery were discussed with the patient including the risks of anesthesia, bleeding requiring transfusion, infection, poor wound healing, urinary retention, damage to surrounding structures including bowels, bladder, vessels, nerves and ureters that may require further surgery, hospitalization or intervention. The other risks of any surgery were discussed including heart attack, blood clots, stroke or . Discussed injury to baby. Plan to proceed once labs back and cleared by anesthesia. Admission and Anticipated Discharge Date Admission Date: June 23, 2024 History of Present Illness Chief Complaint: preeclampsia Primary Care Provider: Ghazala Fuchs DO Patient is a 39yowf with iup at 37 6/7 weeks presents to labor and delivery now with the diagnosis of pet. Pressures have been elevated over the last week or so. Last week had blood pressures 140s/80s. Sent to labor and delivery for monitoring. BPs settled and labs all wnl. Today presented with elevated blood pressure again. She now fulfills the criteria for pet and presents for evaluation and likely delivery. She notes a mild mohr today. Also increased swelling. Has had nausea/vomiting throughout. Last ate around noon but threw up half of her meal. Last water at 2:30. Notes good fm. no lof/vb. +ctx. and Delivery Plans IVF/ICSI * Echo (03/07/24 @ [facility]) *Growth US Q4wks @28wks *Weekly NSTs @36wks *Weekly BRANDI's @36wks(ICSI only) ECHO NORMAL AMA Weekly NST's @ 36 weeks Previous *declines , plans repeat c/s C/S SCHEDULED FOR 07/03/[address] YEAGER AND DR[address] SATYA SETH OB Labs: Blood Type AB Positive 12/20/23 Antibody Screen NEGATIVE 12/20/23 Hemoglobin 11.0 g/dl (12.0-16.0) L 06/21/24 Hematocrit 33.4 % (37.0-47.0) L 06/21/24 Mean Corpuscular Volume 90.5 fL (80.0-100.0) 06/21/24 Platelet Count 247 K/uL (130-400) 06/21/24 Varicella-Zoster IgG Antibody 186.80 index 05/29/20 Rubella IgG Antibody Immune (Immune) 12/20/23 Rapid Plasma Reagin Nonreactive (Nonreactive) 12/20/23 Hepatitis B Surface Antigen Neg (Neg) 04/03/21 Hepatitis B Surface Antigen. NON-REACTIVE (NON-REACTIVE) 12/20/23 Hepatitis C Antibody Neg (Neg) 03/16/20 Hepatitis C Antibody (EIA) NON-REACTIVE (NON-REACTIVE) 12/20/23 HIV (1&2) Ab and P24 Ag, 4th Gener Neg (Neg) 04/03/21 HIV (1&2) Ag and Ab Confirmation NON-REACTIVE (NON-REACTIVE) 12/20/23 Glucose 1 Hour 50 gm Load 131 mg/dl (70-130) H 04/24/24 Maternal Serum Alpha Fetoprotein 48.4 ng/mL 05/16/21 OB Optional Labs: Chlamydia trachomatis RNA Not Detected (NotDetected) 12/20/23 Neisseria gonorrhoeae RNA Not Detected (NotDetected) 12/20/23 Thyroid Stimulating Hormone (TSH) 1.446 uIu/ml (0.300-4.500) 04/15/23 Alpha Fetoprotein Triple Screen SEE NOTE 05/16/21 Labs Reviewed: msafp neg expanded carrier +for three diseases.--fob negative for these. PGD on embryo nl gbs neg Allergies Allergy/AdvReac Type Severity Reaction Status Date / Time cephalexin [From Keflex] Allergy Intermediate Rash Verified 06/23/24 15:04 metformin Allergy Mild Rash Verified 06/23/24 15:04 neomycin Allergy Mild Rash Verified 06/23/24 15:04 nickel Allergy Mild cellulitus Verified 06/23/24 15:04 type rash polymyxin B Allergy Mild Rash Verified 06/23/24 15:04 aspirin AdvReac Mild Fever Verified 06/23/24 15:04 Home Medications Medication Instructions Recorded Confirmed Type albuterol sulfate 90 mcg/actuation 2 puff inhalation QID PRN Wheezing 03/08/23 06/23/24 History aerosol inhaler sertraline 100 mg tablet 100 mg PO QAM 03/08/23 06/23/24 History hydrocortisone 2.5 % topical cream 1 applic ID DAILY PRN hemorrhoids 05/01/24 06/23/24 Rx with perineal applicator #30 grams (Anusol-HC) ondansetron 4 mg disintegrating 4 mg PO Q8H PRN nausea and 05/11/24 06/23/24 Rx tablet vomiting #20 tabs breast pump #1 ea 06/15/24 06/23/24 Rx docusate sodium 50 mg capsule 50 mg PO BID 06/22/24 06/23/24 History doxylamine succinate 25 mg tablet 12.5 mg PO HS PRN Morning Sickness 06/22/24 06/23/24 History zknadvpm-hud-Km-FA 1 mg 1 tab PO HS 06/22/24 06/23/24 History tablet pyridoxine (vitamin B6) 50 mg 50 mg PO BID 06/22/24 06/23/24 History tablet (Vitamin B-6) famotidine 20 mg tablet 20 mg PO BID 06/23/24 06/23/24 History Patient History Medical History GERD (gastroesophageal reflux disease) due to Hx of renal calculi resulting from in-vitro fertilization Scarlet fever as child Fifth disease as teen Hypothyroidism no longer on meds > resolved Stenosis, cervical spine "mild" Anxiety and depression Hx of supraventricular tachycardia remote paroxysmal SVT several years ago s/p unremarkable holter/stress testing, "released" by cardio/no further follow-up recommended Asthma "mild"/rare inhaler use Surgical History Hx of section History of surgery D&E 12/02/2020 History of dilatation and curettage Nausea and vomiting after administration of anesthetic agent History of esophagogastroduodenoscopy (EGD) History of gynecologic surgery egg retrieval History of hysterosalpingogram 2013 Hx of wisdom tooth extraction Family History Mother Family history of diabetes mellitus Heart disease Kidney disease Aunt Dyslipidemia Kidney disease Hypertension Grandmother Breast cancer Colorectal cancer Father Arthritis Grandmother (Maternal) Family hx of colon cancer Grandfather (Maternal) Family hx of colon cancer Other Depression Social History Smoking Status: Never smoker Second Hand Exposure: No; Do You Dip or Chew Tobacco: No; Hx Alcohol Use: No Hx Substance Use: No Preferred Language: Spanish Communication Ability: Effective 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 Date GA wks Lbr Lgth wt Sex Type del Anes Place Del Prov ? Comment 11/28/20 7 Aborted-Spontaneous D&C 10/24/21 39 9lb 0.3oz F C-Sectio n Spinal [employer] Dr. Pacheco No breech, IVF [employer]MENT[employer] LEAD History noncontributory Physical Exam Constitutional: WD/WN, vitals as above Gastrointestinal (Abdomen): soft, gravid, nt Psychiatric: A+Ox3, euthymic affect Genitourinary: cx--deferred toco--irritability efm--130s wtih mod variability, accels present, no decels. Results & Data Vital Signs (Past 12 Hours) Vital Signs Pulse BP 06/23/24 16:37 92 H 132/87 Coding Level of Care Code None Diagnoses Pre-eclampsia in third trimester O14.93 Trimester: third trimester with 37 weeks completed gestation Z3A.37 Previous delivery affecting , antepartum O34.219 resulting from in-vitro fertilization O09.819 (1) Preeclampsia Trimester: third trimester Qualified Code(s): O14.93 - Unspecified pre- eclampsia, third trimester
[2024-06-23] MEDS: ACETAMINOPHEN 500 MG TAB PO SCH (17:15)
[2024-06-23] MEDS ORDERED: GENTAMICIN SULFATE 140 MG in DEXTROSE 5% 100 ML IV SCH (17:15)
[2024-06-23] MEDS ORDERED: MoRPHine SULFATE PF 1 MG/ML 10 ML AMP/VIAL ONE (17:22)
[2024-06-23] MEDS ORDERED: ONDANSETRON INJ 2 MG/ML 2 ML VIAL ONE (17:24)
[2024-06-23] MEDS ORDERED: PHENYLEPHRINE 100MCG/ML 10ML SYR IV ONE ×3 (17:24→18:59)
[2024-06-23 17:32] LABS: Hematocrit (blood only) 31.9 % (37.0-47.0); Hemoglobin 10.8 g/dl (12.0-16.0); Mean Corpuscular Hemoglobin 30.2 pg (25.0-34.0); Mean Corpuscular Hgb Conc 33.9 g/dL (32.0-36.0); Mean Corpuscular Volume 89.1 fL (80.0-100.0); Mean Platelet Volume 10.1 fL (9.4-12.4); Platelet Count 254 K/uL (130-400); RDW Coefficient of Variation 14.7 % (11.5-14.5); RDW Standard Deviation 47.8 fL (36.4-46.3); Red Blood Count 3.58 M/uL (4.20-5.40); White Blood Count 10.89 K/ul (4.8-10.8)
[2024-06-23] MEDS ORDERED: MoRPHine SULFATE 2 MG/ML CARP IV PRN (17:43)
[2024-06-23] MEDS ORDERED: MEPERIDINE HCL 25 MG/ML CARP/VIAL IV PRN (17:43)
[2024-06-23] MEDS ORDERED: LACTATED RINGER'S 500 ML IV PRN (17:43)
[2024-06-23] MEDS ORDERED: NALOXONE HCL 1 MG in SODIUM CHLORIDE 0.9% 1,000 ML IV PRN (17:43)
[2024-06-23] MEDS ORDERED: diphenhydrAMINE 50 MG/ML VIAL IV PRN (17:43)
[2024-06-23] MEDS ORDERED: NALOXONE HCL 0.08 MG in SYRINGE 1.8 ML IV PRN (17:43)
[2024-06-23] MEDS ORDERED: MoRPHine SULFATE PF 1 MG/ML 10 ML AMP/VIAL INT SPINAL ONE (17:43)
[2024-06-23] MEDS ORDERED: ePHEDrine sulfate 50 MG/ML AMP IV PRN (17:43)
[2024-06-23] MEDS ORDERED: KETOROLAC 30 MG/ML VIAL IV PRN (17:43)
[2024-06-23] MEDS ORDERED: HYDROmorphone INJ 0.5 MG/0.5 ML SYR IV PRN (17:43)
[2024-06-23] MEDS ORDERED: ACETAMINOPHEN 1,000 MG/100 ML VIAL IV PRN (17:43)
[2024-06-23] MEDS ORDERED: NALOXONE HCL 0.4 MG/1 ML VIAL/CARP IV PRN (17:43)
[2024-06-23] MEDS ORDERED: NO NARCOTICS OR SEDATIVES SCH (17:45)
[2024-06-23] MEDS ORDERED: SODIUM CHLORIDE 0.9% 1,000 ML IV SCH (17:45)
[2024-06-23] MEDS ORDERED: DC INTRASPINAL MORPHINE SCH (17:45)
[2024-06-23 17:49] LABS: Albumin Globulin Ratio 1.2 (0.9-2); Albumin Level 3.3 gm/dl (3.4-5.0); BUN Creatinine Ratio 11.6 (10-20); Bilirubin,Total 0.4 mg/dl (0.2-1.0); Calcium 9.3 mg/dl (8.6-10.3); Creatinine Clr Calc Pharmacy 191.4 ml/min; Est GFR (African American) 149.5 ml/min; Globulin 2.8 gm/dl (2.5-4.0); Potassium 2.7 mmol/L (3.5-5.1); Total Protein 6.1 gm/dl (6.0-8.3)
[2024-06-23] MEDS: CITRIC ACID/SODIUM CITRATE 15 ML UDC PO SCH (17:50)
[2024-06-23] MEDS: CLINDAMYCIN/D5W 900 MG/50 ML BAG IV SCH (17:52)
[2024-06-23] MEDS ORDERED: OXYTOCIN 10 UNITS/ML VIAL ONE ×3 (18:43)
[2024-06-23] MEDS ORDERED: fentaNYL citrate PF 100 MCG/2 ML VIAL ONE (19:08)
[2024-06-23 19:15] LABS: Base Excess Cord Arterial Bld 0.7 mEq/L (-9-1.8); CO2 Cord Arterial Blood 40 mmHg (39.1-73.5); HCO3 Cord Arterial Blood 25 mmol/L (19.7-28.5); Oxygen Sat Cord Arterial Blood < 60.0 % (<60); PO2 Cord Arterial Blood < 20 mmHg (4.1-31.7); pH Cord Arterial Blood 7.41 (7.1-7.38)
[2024-06-23] MEDS ORDERED: HYDROCORTISONE ACETATE 25 MG SUPP PR PRN (19:47)
[2024-06-23] MEDS ORDERED: BENZOCAINE 20% SPRY 85 APPLN/85 GM CAN EXT PRN (19:47)
[2024-06-23] MEDS ORDERED: ALBUTEROL HFA 8 GM INHALER INH PRN (19:47)
[2024-06-23 19:50] LABS: Base Excess Cord Venous Blood -1.3 mEq/L (-7.7-1.9); Cord Venous Blood HCO3 26 mmol/L (18.4-26.8); Cord Venous Blood PCO2 55 mmHg (30.4-57.2); Cord Venous Blood PO2 < 20 mmHg (14.1-43.3); Cord Venous Blood pH 7.29 (7.20-7.44); O2 Saturation Cord Venous Bld < 60.0 % (<68)
[2024-06-23] MEDS: KETOROLAC 30 MG/ML VIAL IV SCH (19:53)
--- NOTE | 2024-06-23 19:56 | Operative Report ---
PG Post Operative Report Pre & Post Diagnosis Operation Date: 06/23/24 18:00 Pre-Op Diagnosis: Intrauterine at 37 and 6/7 weeks; History of Previous Caesarean Section;Preeclampsia I identified the patient and participated in the time-out.: Yes Procedure Operation Date: 06/23/24 18:00 Repeat lower transverse with T extension of incision. Surgeon Neisha Campos MD, FACOG Activity Therapist Allen Solomon RN Estimated Blood Loss 925 Findings Consistent with Post-Op Diagnosis Adherent rectus muscles to fascia. normal uterus , tubes and ovaries, viable female in cephalic presentation, OP Fluids ivf--1000cc uop 50cc clear Specimens none Drains de guzman Anesthesia Type Spinal Complications none Disposition Accompanied Patient To Recovery: Yes Disposition: L&D Indications with iup at 37 6/7 weeks with hx of previous c/s and preeclampsia Description of Procedure The patient was taken to the operating room where she was identified verbally and by bracelet. She was seated on the operating table where a spinal anesthetic was placed by anesthesia. She was then placed in the supine position with a leftward tilt. A De Guzman catheter was placed sterilely. the patient was prepped and draped in a normal standard fashion. the anesthetic was tested and found to be adequate. A time-out was held, identifying correct patient, procedure, positioning and preoperative antibiotics. There were no concerns. A Pfannenstiel skin incision was made with a knife and taken down to the underlying layer of fascia with the knife and Bovie electrocautery. Bleeding was attended to with the Bovie. The fascia was incised in the midline with the knife and taken out laterally with scissors. The superior edge of the fascial incision was grasped, elevated and the underlying layer of rectus muscle was taken off bluntly and with scissors. It was difficult to separate the muscles from the fascia secondary to scarring. In a similar fashion, the inferior edge of the fascial incision was grasped, elevated and the underlying layer of rectus muscle was taken off bluntly and with scissors. The muscles were bluntly in the midline. The peritoneum was entered bluntly. The incision was then stretched. After stretching the incision, it was noted to be tight. The bladder blade was placed. The vesicouterine peritoneum was identified, entered with scissors and taken out laterally with scissors. The bladder flap was created digitally A hysterotomy incision was scored with a knife and the incision was stretched superiorly and inferiorly with the rail operator's fingers. The operators hand was placed into the incision and we had difficulty delivering the head which was direct OP. A vacuum was called for and it was placed and popped off x 2 without delivering the head. The rectus muscles were then cut to make more room. We still could not deliver the head. At that point, bandage scissors were used to T the hysterotomy incision. The head was then delivered with significant fundal pressure needed. There was an immediate cry. No nuchal cord. The nose and mouth were bulb suctioned. the rest of the was then delivered without difficulty. A body cord was noted. The nose and mouth were again bulb suctioned. The cord was clamped and cut and the was then handed off to the awaiting medical research tech for drying and attention. Cord blood and segment were obtained. The placenta was Manually extracted. The placenta and membranes were quite adherent and many swipes with a sponge and use of ring forceps were needed to remove all the POCs. The uterus was then clean. The uterus was exteriorized and cleared of all clot and debris with moistened laparotomy sponges. The T part of the hysterotomy was reapproximated first with O Vicryl. Then, The horizontal hysterotomy incision was repaired in two layers, the first in a running locked layer, the second in an imbricating layer of O vicryl. A second layer was placed in the T portion of the incision. Hemostasis was noted to be good. Posterior cul-de-sac was irrigated and cleared of all clot and debris. The hysterotomy incision was again inspected and found to be hemostatic. the uterus was reinteriorized. Hysterotomy incision was again inspected and a suture was needed to control some oozing. Caitlin was placed over the incision. Hemostasis was then noted to be good. Rectus muscles were evaluated and no bleeding was noted and they were then left as they were The fascia was then reapproximated with 0 Vicryl starting at the edges and meeting in the midline. The subcuticular tissues were copiously irrigated and bleeding was attended to with cautery. The skin was then closed with 4-0 Vicryl in a subcuticular fashion. All sponge, lap and needle counts were correct x 2. The patient tolerated the procedure well and was taken to the recovery room in stable condition. I attest to the content of the Intraoperative Record and any orders documented therein. Any exceptions are noted below. OB Procedure Charges 93570
[2024-06-23] MEDS: OXYTOCIN 20 UNITS/LR 1,002 ML IV SCH (20:17)
[2024-06-23] MEDS: METOCLOPRAMIDE HCL 10 MG in SODIUM CHLORIDE 0.9% 50 ML IV PRN (20:20)
[2024-06-23] MEDS: IBUPROFEN 600 MG TAB PO SCH (20:27)
[2024-06-23] MEDS: DIPHTHER/TETAN/PERTUS Vaccine (Tdap, Adol/Adult) 0.5mL IM ONE (20:31)
[2024-06-23] MEDS: OXYTOCIN 10 UNITS in LACTATED RINGER'S 1,000 ML IV SCH (20:46)
[2024-06-23] MEDS: SIMETHICONE 80 MG CHEW PO SCH (21:11)
[2024-06-23] MEDS: DOCUSATE SODIUM 100 MG CAP PO SCH (21:12)
[2024-06-23] MEDS: FAMOTIDINE 20 MG TAB PO SCH (21:12)
[2024-06-23] MEDS: ONDANSETRON INJ 2 MG/ML 2 ML VIAL IV PRN (22:26)
[2024-06-23] MEDS ORDERED: ACETAMINOPHEN 325 MG TAB PO SCH (23:00)
[2024-06-23] MEDS: ACETAMINOPHEN 325 MG TAB PO SCH (23:00)
[2024-06-23] MEDS: PROMETHAZINE 25 MG/51 ML BAG IV STA (23:04)
[2024-06-24] MEDS: NALBUPHINE HCL 5 MG in SYRINGE 0 ML IV PRN (04:03)
[2024-06-24] MEDS: CALCIUM CARBONATE 500 MG CHEWABLE TAB PO PRN (05:42)
[2024-06-24] MEDS ORDERED: GENTAMICIN SULFATE 140 MG in DEXTROSE 5% 100 ML IV SCH (06:00)
[2024-06-24 06:49] LABS: Basophils # (auto) 0.02 K/uL (0.00-0.20); Basophils % (auto) 0.2 %; Eosinophils # (auto) 0.12 K/uL (0.00-0.50); Eosinophils % (auto) 1.2 %; Hematocrit (blood only) 29.6 % (37.0-47.0); Hemoglobin 9.8 g/dl (12.0-16.0); Immature Granulocytes # (auto) 0.03 K/uL (0.01-0.20); Immature Granulocytes % (auto) 0.3 %; Lymphocytes # (auto) 1.36 K/uL (1.20-3.40); Lymphocytes % (auto) 13.1 %; Mean Corpuscular Hemoglobin 29.5 pg (25.0-34.0); Mean Corpuscular Hgb Conc 33.1 g/dL (32.0-36.0); Mean Corpuscular Volume 89.2 fL (80.0-100.0); Monocytes # (auto) 0.68 K/uL (0.11-0.59); Monocytes % (auto) 6.5 %; Neutrophils # (auto) 8.18 K/uL (1.40-6.50); Neutrophils % (auto) 78.7 %; Platelet Count 211 K/uL (130-400); RDW Coefficient of Variation 14.6 % (11.5-14.5); RDW Standard Deviation 47.5 fL (36.4-46.3); Red Blood Count 3.32 M/uL (4.20-5.40); White Blood Count 10.39 K/ul (4.8-10.8)
--- NOTE | 2024-06-24 07:38 | Obstetrical Progress Note ---
Date of Service <Venessa Mendes MD - Last Filed: 06/24/24 07:42> June 24, 2024 Assessment & Plan <Venessa Mendes MD - Last Filed: 06/24/24 07:42> (1) Encounter for assessment: visit type: exam and care immediately after delivery Qualified Code(s): Z39.0 - Encounter for care and examination of mother immediately after delivery Plan PPD 1: stable, routine management -Patient is voiding and ambulating on their own power -Pain is well controlled on as needed analgesia -Tolerating regular diet without nausea or vomiting -Planned to Bottle feed * Continue PRN analgesia * encourages to ambulate and hydrate well. * Reassess d/c readiness tomorrow * 6 weeks OB outpatient follow-up <Neisha Campos MD, FACOG - Last Filed: 06/24/24 08:36> (1) Encounter for assessment: Subjective <Venessa Mendes MD - Last Filed: 06/24/24 07:42> Ambulation: ambulating normally Voiding: no voiding problems Diet Tolerance:: regular diet Lochia:: Moderate Feeding Type:: breast feeding Pt is a 39 y/o female who is now POD# 1following Repeat C-sec at 38 weeks. Reports feeling well overall this morning. Minimal abdominal cramping and 5/10 pain, well managed on analgesics. Voiding ok, de guzman is out this am. Tolerating meals and able to ambulate some. passing gas but no bowel movements. Some persistent lochia with overall improvement as of this morning. Breast feeding. Review of Systems -Denies fever or chills -Denies dyspnea, chest pain, or palpitations -Denies breast pain -Denies dysuria -Denies headache or changes in vision Physical Exam <Venessa Mendes MD - Last Filed: 06/24/24 07:42> General: Alert and oriented. No acute distress Cardiac: Regular rate and rhythm, no murmurs appreciated Respiratory: Lungs clear to auscultation bilaterally, No increased work of breathing Abdominal: Soft, non-tender, non-distended. Bowel sounds present. Uterus: Uterine fundus firm, palpable below umbilicus Extremities: 2+ lower extremity edema, calves non-tender bilaterally Results & Data <Venessa Mendes MD - Last Filed: 06/24/24 07:42> Vital Signs (Past 12 Hours) Vital Signs Temp Pulse Pulse Resp BP BP Pulse Ox 06/24/24 06:15 18 100 06/24/24 05:52 18 100 06/24/24 05:52 36.7 C 95 H 18 132/83 100 06/24/24 05:10 36.8 C 96 H 18 110/72 100 06/24/24 04:15 18 95 06/24/24 03:15 20 91 06/24/24 02:15 20 94 06/24/24 01:15 18 95 06/24/24 01:15 36.7 C 84 18 126/78 06/24/24 00:15 18 100 06/23/24 23:15 16 91 06/23/24 22:15 18 96 06/23/24 22:15 06/23/24 22:15 36.9 C 98 H 18 120/76 96 06/23/24 21:55 94 06/23/24 21:55 100 H 06/23/24 21:50 94 06/23/24 21:50 97 H 06/23/24 21:47 108 H 06/23/24 21:47 104/81 06/23/24 21:45 94 06/23/24 21:45 101 H 06/23/24 21:40 94 06/23/24 21:40 100 H 06/23/24 21:35 93 06/23/24 21:35 93 H 06/23/24 21:30 93 06/23/24 21:30 94 H 06/23/24 21:25 92 06/23/24 21:25 88 06/23/24 21:20 92 06/23/24 21:20 106 H 06/23/24 21:15 94 06/23/24 21:15 82 06/23/24 21:10 96 06/23/24 21:10 88 06/23/24 21:08 93 06/23/24 21:08 98 H 06/23/24 21:05 95 06/23/24 21:05 92 H 06/23/24 21:03 94 06/23/24 21:03 88 06/23/24 21:00 97 08/09/24 21:00 104 H 06/23/24 20:58 94 06/23/24 20:58 83 06/23/24 20:55 95 06/23/24 20:55 89 06/23/24 20:51 94 06/23/24 20:51 108 H 06/23/24 20:50 95 06/23/24 20:50 109 H 06/23/24 20:46 77 06/23/24 20:46 122/74 06/23/24 20:45 97 06/23/24 20:45 88 06/23/24 20:41 94 06/23/24 20:41 90 06/23/24 20:40 96 06/23/24 20:40 84 06/23/24 20:36 82 06/23/24 20:36 113/67 06/23/24 20:35 97 06/23/24 20:35 77 06/23/24 20:32 92 06/23/24 20:32 87 06/23/24 20:30 98 06/23/24 20:30 86 06/23/24 20:26 96 H 06/23/24 20:26 122/70 06/23/24 20:25 98 06/23/24 20:25 94 H 06/23/24 20:20 96 06/23/24 20:20 85 06/23/24 20:18 92 06/23/24 20:18 102 H 06/23/24 20:16 78 06/23/24 20:16 128/73 06/23/24 20:15 98 06/23/24 20:15 85 06/23/24 20:10 96 06/23/24 20:10 88 06/23/24 20:06 97 H 06/23/24 20:06 113/62 06/23/24 20:05 97 06/23/24 20:05 99 H 06/23/24 20:01 90 06/23/24 20:01 116/70 06/23/24 20:00 95 06/23/24 20:00 90 06/23/24 19:55 98 06/23/24 19:55 106 H 06/23/24 19:52 82 06/23/24 19:52 114/72 06/23/24 19:50 94 06/23/24 19:50 87 06/23/24 19:46 91 H 06/23/24 19:46 120/68 06/23/24 19:45 98 06/23/24 19:45 87 06/23/24 19:44 94 06/23/24 19:44 93 H 06/23/24 19:40 97 06/23/24 19:40 85 06/23/24 19:39 94 06/23/24 19:39 81 O2 Del Method 06/24/24 06:15 06/24/24 05:52 06/24/24 05:52 Room Air 06/24/24 05:10 Room Air 06/24/24 04:15 06/24/24 03:15 06/24/24 02:15 06/24/24 01:15 06/24/24 01:15 Room Air 06/24/24 00:15 06/23/24 23:15 06/23/24 22:15 06/23/24 22:15 Room Air 06/23/24 22:15 Room Air 06/23/24 21:55 06/23/24 21:55 06/23/24 21:50 06/23/24 21:50 06/23/24 21:47 06/23/24 21:47 06/23/24 21:45 06/23/24 21:45 06/23/24 21:40 06/23/24 21:40 06/23/24 21:35 06/23/24 21:35 06/23/24 21:30 06/23/24 21:30 06/23/24 21:25 06/23/24 21:25 06/23/24 21:20 06/23/24 21:20 06/23/24 21:15 06/23/24 21:15 06/23/24 21:10 06/23/24 21:10 06/23/24 21:08 06/23/24 21:08 06/23/24 21:05 06/23/24 21:05 06/23/24 21:03 06/23/24 21:03 06/23/24 21:00 06/23/24 21:00 06/23/24 20:58 06/23/24 20:58 06/23/24 20:55 06/23/24 20:55 06/23/24 20:51 06/23/24 20:51 06/23/24 20:50 06/23/24 20:50 06/23/24 20:46 06/23/24 20:46 06/23/24 20:45 06/23/24 20:45 06/23/24 20:41 06/23/24 20:41 06/23/24 20:40 06/23/24 20:40 06/23/24 20:36 06/23/24 20:36 06/23/24 20:35 06/23/24 20:35 06/23/24 20:32 06/23/24 20:32 06/23/24 20:30 06/23/24 20:30 06/23/24 20:26 06/23/24 20:26 06/23/24 20:25 06/23/24 20:25 06/23/24 20:20 06/23/24 20:20 06/23/24 20:18 06/23/24 20:18 06/23/24 20:16 06/23/24 20:16 06/23/24 20:15 06/23/24 20:15 06/23/24 20:10 06/23/24 20:10 06/23/24 20:06 06/23/24 20:06 06/23/24 20:05 06/23/24 20:05 06/23/24 20:01 06/23/24 20:01 06/23/24 20:00 06/23/24 20:00 06/23/24 19:55 06/23/24 19:55 06/23/24 19:52 06/23/24 19:52 06/23/24 19:50 06/23/24 19:50 06/23/24 19:46 06/23/24 19:46 06/23/24 19:45 06/23/24 19:45 06/23/24 19:44 06/23/24 19:44 06/23/24 19:40 06/23/24 19:40 06/23/24 19:39 06/23/24 19:39 Supervising Physician <Neisha Campos MD, FACOG - Last Filed: 06/24/24 08:36> Co-Signing Physician Notes Resident Physician Supervision Note: I interviewed and examined the patient. Discussed with the resident and agree with findings and plan as documented in the note. Any exceptions or clarifications are listed here: Overall improving wtih nausea and pain control. de guzman out and void, plan to ambulate and adat. Vitals stable. h/h with minimal drop. Continue routine care. Documented By: Neisha Campos MD, FACOG Resident Activity Tracking <Venessa Mendes MD - Last Filed: 06/24/24 07:42> Resident Involvement: Resident Care Provided Care Provided: OB Delivery
[2024-06-24] MEDS: PRENATAL VITAMIN 1 TAB PO SCH (08:49)
[2024-06-24] MEDS: FERROUS SULFATE 325 MG TAB PO SCH (08:49)
--- NOTE | 2024-06-24 11:35 | Communication Note ---
Date of Service: June 24, 2024 I was notified that after was performed last night, the surgical sponge/instrument count was correct, however the in-OR documentation is not comp lete. While the suspicion for retained foreign body is low, would recommend abdominal/KUB xray to r/o. Discussed with patient - she is agreeable. Will order x-ray.
[2024-06-24] MEDS ORDERED: HYDROmorphone INJ 0.5 MG/0.5 ML SYR IV PRN (11:43)
[2024-06-24] MEDS ORDERED: PROMETHAZINE 12.5 MG/50.5 ML BAG IV PRN (11:43)
[2024-06-24] MEDS ORDERED: diphenhydrAMINE 50 MG/ML VIAL IV PRN (11:43)
[2024-06-24] MEDS ORDERED: ONDANSETRON INJ 2 MG/ML 2 ML VIAL IV PRN (11:43)
[2024-06-24] MEDS: SERTRALINE HCL 100 MG TABLET PO SCH (12:15)
[2024-06-24] MEDS: ACETAMINOPHEN 325 MG TAB PO SCH (12:16)
[2024-06-24] MEDS: oxyCODONE HCL IR 5 MG TAB (IMMEDIATE RELEASE) PO PRN (13:54)
[2024-06-24] MEDS: diphenhydrAMINE Capsule 25 MG CAP PO PRN (13:54)
--- NOTE | 2024-06-24 14:03 | XRay Report ---
KUB CLINICAL HISTORY: r/o retained foreign body postop COMPARISON STUDY: CT of the abdomen and pelvis May 13, 2024. FINDINGS: No radiopaque foreign bodies within the abdomen or pelvis are identified. Bowel gas pattern is within normal limits. IMPRESSION: No radiopaque foreign bodies within the abdomen or pelvis. ACT 112: Negative or not required by law. Electronically signed by: Jorge Rubio M.D. 06/24/2024 2:02 PM
[2024-06-24] MEDS: bisacodyL 5 MG TABEC PO SCH (20:31)
--- NOTE | 2024-06-24 21:22 | Anesthesiology Progress Note ---
Date of Service June 24, 2024 Anesthesia Post Procedure Vital Signs Vital Signs: Temp Pulse Pulse Resp BP BP Pulse Ox 06/24/24 15:08 36.9 C 99 H 17 125/81 97 06/24/24 11:40 36.6 C 97 H 16 118/81 98 06/24/24 11:30 16 06/24/24 10:30 16 06/24/24 09:30 16 06/24/24 08:30 16 06/24/24 07:30 16 100 06/24/24 07:30 36.7 C 93 H 16 117/79 100 06/24/24 06:15 18 100 06/24/24 05:52 18 100 06/24/24 05:52 36.7 C 95 H 18 132/83 100 06/24/24 05:10 36.8 C 96 H 18 110/72 100 06/24/24 04:15 18 95 06/24/24 03:15 20 91 06/24/24 02:15 20 94 06/24/24 01:15 18 95 06/24/24 01:15 36.7 C 84 18 126/78 06/24/24 00:15 18 100 06/23/24 23:15 16 91 06/23/24 22:15 18 96 06/23/24 22:15 06/23/24 22:15 36.9 C 98 H 18 120/76 96 06/23/24 21:55 94 06/23/24 21:55 100 H 06/23/24 21:50 94 06/23/24 21:50 97 H 06/23/24 21:47 108 H 06/23/24 21:47 104/81 06/23/24 21:45 94 06/23/24 21:45 101 H 06/23/24 21:40 94 06/23/24 21:40 100 H 06/23/24 21:35 93 06/23/24 21:35 93 H 06/23/24 21:30 93 06/23/24 21:30 94 H 06/23/24 21:25 92 06/23/24 21:25 88 O2 Del Method 06/24/24 15:08 Room Air 06/24/24 11:40 Room Air 06/24/24 11:30 06/24/24 10:30 06/24/24 09:30 06/24/24 08:30 08/10/24 07:30 06/24/24 07:30 Room Air 06/24/24 06:15 06/24/24 05:52 06/24/24 05:52 Room Air 06/24/24 05:10 Room Air 06/24/24 04:15 06/24/24 03:15 06/24/24 02:15 06/24/24 01:15 06/24/24 01:15 Room Air 06/24/24 00:15 06/23/24 23:15 06/23/24 22:15 06/23/24 22:15 Room Air 06/23/24 22:15 Room Air 06/23/24 21:55 06/23/24 21:55 06/23/24 21:50 06/23/24 21:50 06/23/24 21:47 06/23/24 21:47 06/23/24 21:45 06/23/24 21:45 06/23/24 21:40 06/23/24 21:40 06/23/24 21:35 06/23/24 21:35 06/23/24 21:30 06/23/24 21:30 06/23/24 21:25 06/23/24 21:25 Pain Intensity Lower Abdomen: Pain Intensity: 5 Transfer of Care Handoff Completed per policy Notes Mental Status: alert / awake / arousable and participated in evaluation Nausea / Vomiting: adequately controlled Pain: adequately controlled Airway Patency, RR, SpO2: stable & adequate BP & HR: stable & adequate Hydration State: stable & adequate Neuraxial Anesthesia: was administered and sensory block is resolving Anesthetic Complications: no major complications apparent and Pt Satisfied with anesthetic care
[2024-06-25 07:51] LABS: Hematocrit (blood only) 26.5 % (37.0-47.0); Hemoglobin 8.7 g/dl (12.0-16.0)
--- NOTE | 2024-06-25 08:53 | Obstetrical Progress Note ---
Date of Service June 25, 2024 Assessment & Plan (1) Previous delivery affecting , antepartum: POD#2. Some pain at incision site, abdomen. No fever/chills. Eating/drinking ok. Passing some gas. On exam, abdomen nondistended, mild diffuse tenderness. Incision CDI. Steri strips in place, small amount of blood on strips. Had taken 1/2 dose of oxycodone just prior to exam - will monitor the pain symptoms, with next dose could take full dose - if worsening or new symptoms will let us know. Will plan to stay until tomorrow. Subjective Ambulation: ambulating normally Voiding: no voiding problems Diet Tolerance:: regular diet Lochia:: Moderate Review of Systems All systems reviewed & are unremarkable except as noted in HPI & below Physical Exam Constitutional WD/WN, vitals as above no acute distress Respiratory normal respiratory effort Cardiovascular Rate/Rhythm: regular rate and regular rhythm Gastrointestinal (Abdomen) Inspection/Auscultation: abdomen normal to inspection; abdomen not distended Percussion/Palpation: abdomen soft Genitourinary OB Exam Abdomen: + fundal height Fundus: + firm; not tender Results & Data Vital Signs (Past 12 Hours) Vital Signs Temp Pulse Resp BP Pulse Ox O2 Del Method 06/24/24 23:25 36.7 C 85 18 132/86 98 Room Air
[2024-06-25] MEDS: MAGNESIUM HYDROXIDE SUSP 30 ML UDC PO PRN (18:23)
[2024-06-25] MEDS ORDERED: bisacodyL 10 MG SUPP PR PRN (19:40)
[2024-06-25] MEDS ORDERED: ACETAMINOPHEN 325 MG TAB PO PRN ×2 (19:40→22:11)
[2024-06-25] MEDS: IBUPROFEN 600 MG TAB PO PRN (21:48)
[2024-06-25 23:17] VITALS: O2SAT 97
--- NOTE | 2024-06-26 06:06 | Obstetrical Progress Note ---
Date of Service June 26, 2024 Assessment & Plan (1) Encounter for assessment: Admission and Anticipated Discharge Date Admission Date: June 23, 2024 Results & Data Vital Signs (Past 12 Hours) Vital Signs Temp Pulse Resp BP Pulse Ox O2 Del Method 06/25/24 21:00 36.6 C 75 18 129/86 97 Room Air (1) Encounter for assessment visit type: exam and care immediately after delivery Qualified Code(s): Z39.0 - Encounter for care and examination of mother immediately after delivery
[2024-06-26 07:34] VITALS: BP 130/85; PULSE 85; RESP 20; TEMP 97.5
--- NOTE | 2024-06-26 08:06 | Obstetrical Progress Note ---
Date of Service <Monica Marcano MD - Last Filed: 06/26/24 08:09> June 26, 2024 Assessment & Plan <Monica Marcano MD - Last Filed: 06/26/24 08:09> (1) Previous delivery affecting , antepartum: 3rd POD S/P Repeat LSCS for Previous CS with IVF with preclampsia Today : No active complain Pain decreased than before; 3/10 today morning. Plan to discharge today <Kristin Pacheco DO - Last Filed: 06/26/24 08:13> (1) Previous delivery affecting , antepartum: Subjective <Monica Marcano MD - Last Filed: 06/26/24 08:09> Ambulation: ambulating normally Voiding: no voiding problems Passing Gas:: Yes Diet Tolerance:: regular diet Lochia:: Moderate Feeding Type:: breast feeding Current Pain Level(1-10): 3 Review of Systems All systems reviewed & are unremarkable except as noted in HPI & below Constitutional: + as per Subjective / HPI Eyes: + as per Subjective / HPI Ear, Nose, Mouth, Throat: + as per Subjective / HPI Respiratory: + as per Subjective / HPI Cardiovascular: + as per Subjective / HPI Breast: + see HPI Gastrointestinal: + as per Subjective / HPI Genitourinary (female): + as per Subjective / HPI Musculoskeletal: + as per Subjective / HPI Integumentary: + as per Subjective / HPI Neurologic: + as per Subjective / HPI Psychiatric: + as per Subjective / HPI Endocrine: + as per Subjective / HPI Physical Exam <Monica Marcano MD - Last Filed: 06/26/24 08:09> Constitutional WD/WN, vitals as above well nourished Eyes PERRL, conjunctivae normal, anicteric sclerae Respiratory normal respiratory effort, lungs clear to auscultation Cardiovascular RRR, no murmur, no edema Gastrointestinal (Abdomen) normal bowel sounds, soft, nontender, no hepatosplenomegaly Musculoskeletal Head/Neck/Chest: + head abnormal to inspection and normocephalic Skin no rashes, warm and dry Genitourinary Post Uterus; below umbilicus, involuting well, non tender Incision site Normal ;no discharge, bandage intact and dry Results & Data <Monica Marcano MD - Last Filed: 06/26/24 08:09> Vital Signs (Past 12 Hours) Vital Signs Temp Pulse Resp BP Pulse Ox O2 Del Method 06/26/24 07:25 36.4 C L 85 20 130/85 97 Room Air 06/26/24 04:40 36.7 C 86 18 129/87 97 Room Air 06/25/24 21:00 36.6 C 75 18 129/86 97 Room Air Supervising Physician <Kristin Pacheco DO - Last Filed: 06/26/24 08:13> Co-Signing Physician Notes Resident Physician Supervision Note: I interviewed and examined the patient. Discussed with Dr. Marcano and agree with findings and plan as documented in the note. Any exceptions or clarifications are listed here: POD3 doing well, pain controlled. Incision CDI. DC home, instructions reviewed. Documented By: Kristin Pacheco DO Resident Activity Tracking <Monica Marcano MD - Last Filed: 06/26/24 08:09> Resident Involvement: Resident Care Provided Care Provided: OB Delivery
[2024-06-26] MEDS: SENNA 8.6 MG TAB PO PRN (10:52)
== END 2024-06-26 13:21 | disposition home or self-care (01) | DRG 788 ==
LOC: 4S1 16:33 → 4E2 22:00

== ENCOUNTER 2024-06-28 14:24 | Inpatient (IN) ==
[2024-06-28 15:13] LABS: Basophils # (auto) 0.06 K/uL (0.00-0.20); Basophils % (auto) 0.7 %; Eosinophils # (auto) 0.17 K/uL (0.00-0.50); Eosinophils % (auto) 1.9 %; Hematocrit (blood only) 31.3 % (37.0-47.0); Hemoglobin 10.1 g/dl (12.0-16.0); Immature Granulocytes # (auto) 0.17 K/uL (0.01-0.20); Immature Granulocytes % (auto) 1.9 %; Lymphocytes # (auto) 1.68 K/uL (1.20-3.40); Lymphocytes % (auto) 18.6 %; Mean Corpuscular Hemoglobin 29.8 pg (25.0-34.0); Mean Corpuscular Hgb Conc 32.3 g/dL (32.0-36.0); Mean Corpuscular Volume 92.3 fL (80.0-100.0); Mean Platelet Volume 9.2 fL (9.4-12.4); Monocytes # (auto) 0.54 K/uL (0.11-0.59); Neutrophils # (auto) 6.39 K/uL (1.40-6.50); Neutrophils % (auto) 70.9 %; Nucleated RBC # (auto) 0.02 K/uL (0.00-0.12); Nucleated RBC % (auto) 0.2 %; Platelet Count 344 K/uL (130-400); RDW Coefficient of Variation 14.3 % (11.5-14.5); RDW Standard Deviation 48.1 fL (36.4-46.3); Red Blood Count 3.39 M/uL (4.20-5.40); White Blood Count 9.01 K/ul (4.8-10.8)
[2024-06-28] MEDS: LABETALOL HCL IV 5 MG/ML 20ML IV STA (15:19)
[2024-06-28] MEDS: hydrALAZINE HCL 20 MG/ML VIAL IV STA (15:28)
[2024-06-28] MEDS: MAGNESIUM SULFATE / D5W 1 GM/100 ML BAG IV SCH (15:30)
[2024-06-28 15:32] LABS: Albumin Globulin Ratio 1.3 (0.9-2); Albumin Level 3.3 gm/dl (3.4-5.0); BUN Creatinine Ratio 23.1 (10-20); Bilirubin,Total 0.5 mg/dl (0.2-1.0); Calcium 8.4 mg/dl (8.6-10.3); Creatinine Clr Calc Pharmacy 155.3 ml/min; Est GFR (African American) 140.5 ml/min; Est GFR (Non-African American) 121.2 ml/min; Globulin 2.6 gm/dl (2.5-4.0); Potassium 3.4 mmol/L (3.5-5.1); Total Protein 5.9 gm/dl (6.0-8.3)
[2024-06-28 15:38] LABS: Troponin I High Sensitivity 11.6 pg/ml (0-14)
[2024-06-28 15:42] LABS: INR 0.9 (0.9-1.1); Partial Thromboplastin Ratio 0.9; Partial Thromboplastin Time 25 Seconds (21-31); Prothrombin Time 10.3 Seconds (9.0-12.0)
--- NOTE | 2024-06-28 15:43 | Emergency Department Note ---
Impression & Plan Pre-eclampsia, Elevated LFTs, Fluid overload, S/P ED Provider Note CHIEF COMPLAINT: Hypertension, right upper quadrant pain, 4 days HISTORY OF PRESENT ILLNESS: This 39-year-old female patient presents emergency department 4 days status post at 38 weeks due to hypertension. Patient states she was discharged 2 days ago, states that she was feeling quite well. Last evening she began to have some heavy sensation in the chest, felt as though she could not catch her breath when lying flat. She has noticed some increased swelling in her lower extremities. She has been monitoring her blood pressure with a wrist cuff. She states her blood pressure was somewhere around 160/100. Her friend that is a nurse came and took her blood pressure with very similar results. Patient was in contact with her PHOTO OPTICS TECHNICIAN last evening who said she could just monitor blood pressure. She was contacted by the office today to come in for a blood pressure recheck, but was then redirected to the emergency department due to the complaints of respiratory difficulty and right upper quadrant pain. Patient denies headache, vision changes, abdominal pain, significant vaginal bleeding and fevers. REVIEW OF SYSTEMS: A review of systems was performed with positives and pertinent negatives listed in the history of present illness. 10 systems were reviewed and are otherwise negative. ALLERGIES: see below MEDICATIONS: see below PMH: see below SOCIAL HISTORY: see below DDx: Preeclampsia, HELLP syndrome, fluid overload, cholecystitis, UTI, anemia, DVT/PE among others. PHYSICAL EXAM: Vital signs reviewed. General: Well-appearing 39-year-old female, in no significant distress. HEENT: No scleral icterus, PERRLA, neck supple. moist mucous membranes. Cardiovascular: Regular rate and rhythm, no extra sounds. Pulmonary: Clear to auscultation bilaterally, normal work of breathing. Abdomen: Soft, Slightly distended, mild tenderness to palpation in the right upper quadrant, nondistended, positive bowel sounds. Musculoskeletal: Atraumatic, no peripheral edema. Neurologic: Patient awake alert and oriented x 3, speech is clear Skin: Warm, dry, no rash EMERGENCY DEPARTMENT COURSE/MDM: This pt was evaluated and appeared to and no significant distress. Blood pressure is noted to be elevated. Patient was medicated with 10 mg of IV labetalol, but subsequently hydralazine was given d/t her low normal heart rate in the 50s. Visions laboratory work is significant for elevated WBC, likely secondary of the state, slightly elevated AST and ALT. She does have trace protein in the urine. 2 g of magnesium was administered. Patient complained of headache later in her stay and was given 1000 mg of Tylenol. She complained of a pleuritic type chest pain and headache. CT of the head was performed in his negative. CT scan of the chest is negative for PE. There was comment on fluid overload therefore the patient was given 40 mg of Lasix. Patient must give me 40 mil equivalent of potassium by mouth. Dr. [facility] agreed to evaluate with a patient for admission. Patient was informed of the findings and plan and agreed. MONITORING: An order for cardiac monitoring was placed and the patient is noted to be in a normal sinus rhythm at 69 beats per minute. RADIOLOGY: chest x-ray to my interpretation reveals pulmonary vascular congestion, pleural effusion. CTA chest: IMPRESSION: 1. No pulmonary emboli identified. 2. Moderate interstitial pulmonary edema with trace bilateral pleural effusions. Scattered groundglass opacities and subpleural nodular densities favor alveolar pulmonary edema. Borderline cardiomegaly. A follow-up chest CT in 6 months to ensure resolution of the nodular densities is recommended. 3. Trace perihepatic ascites. Mild stranding within the upper abdomen. Findings suggest mild volume overload. CT head to my interpretation reveals no evidence of acute intracranial abnormality. EKG: To my interpretation reveals normal sinus rhythm at [address] segments. QTc is 452. No PVC, no PAC. DISPOSITION: Admission I have personally spent 35 minutes of critical care time in the direct management of this patient. This was a life/limb threatening event. This 35 minutes is in excess of all separately billable procedures. Past Med/Surg History Problem List (Updated 07/01/24 @ 12:38 by Alison Argueta MD) S/P (Acute) Fluid overload (Acute) Elevated LFTs (Acute) Pre-eclampsia (Acute) Hypocalcemia (Acute) Hypokalemia Preeclampsia, severe state Pulmonary edema Encounter for assessment with 37 weeks completed gestation Preeclampsia Elevated BP without diagnosis of hypertension Calculus of kidney affecting in third trimester Previous delivery affecting , antepartum Elderly multigravida resulting from in-vitro fertilization Encounter for anatomic survey Medical History GERD (gastroesophageal reflux disease) due to Hx of renal calculi resulting from in-vitro fertilization Scarlet fever as child Fifth disease as teen Hypothyroidism no longer on meds > resolved Stenosis, cervical spine "mild" Anxiety and depression Hx of supraventricular tachycardia remote paroxysmal SVT several years ago s/p unremarkable holter/stress testing, "released" by cardio/no further follow-up recommended Asthma "mild"/rare inhaler use Surgical History Hx of section History of surgery D&E 12/02/2020 History of dilatation and curettage Nausea and vomiting after administration of anesthetic agent History of esophagogastroduodenoscopy (EGD) History of gynecologic surgery egg retrieval History of hysterosalpingogram 2013 Hx of wisdom tooth extraction Family History Mother Family history of diabetes mellitus Heart disease Kidney disease Aunt Dyslipidemia Kidney disease Hypertension Grandmother Breast cancer Colorectal cancer Father Arthritis Grandmother (Maternal) Family hx of colon cancer Grandfather (Maternal) Family hx of colon cancer Other Depression Social History Smoking Status: Former smoker Tobacco Type: Cigarettes Second Hand Exposure: No; Do You Dip or Chew Tobacco: No; Hx Alcohol Use: No Hx Substance Use: No Preferred Language: Yoruba Communication Ability: Effective Dryerman/Woman Required: No Beliefs That Will Affect Care: None marital status: marital status details: Cliff Gan(40) [phone] Current Living Situation: Spouse and Family Current Living Situation Comment: lives at home with and children current occupational status: employed 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 @ [employer] Feels Safe at Home: Yes Assistive Devices: None Allergies Allergies Allergy/AdvReac Type Severity Reaction Status Date / Time cephalexin [From Keflex] Allergy Intermediate Rash Verified 06/28/24 16:48 metformin Allergy Mild Rash Verified 06/28/24 16:48 neomycin Allergy Mild Rash Verified 06/28/24 16:48 nickel Allergy Mild cellulitus Verified 06/28/24 16:48 type rash polymyxin B Allergy Mild Rash Verified 06/28/24 16:48 aspirin AdvReac Mild Fever Verified 06/28/24 16:48 Home Meds Home Medications Medication Instructions Recorded Confirmed albuterol sulfate 90 mcg/actuation 2 puff inhalation QID PRN Wheezing 03/08/23 06/28/24 aerosol inhaler sertraline 100 mg tablet 100 mg PO QAM 03/08/23 06/28/24 docusate sodium 50 mg capsule 50 mg PO BID 06/22/24 06/28/24 doxylamine succinate 25 mg tablet 12.5 mg PO HS PRN Morning Sickness 06/22/24 06/28/24 pyridoxine (vitamin B6) 50 mg 50 mg PO BID 06/22/24 06/28/24 tablet (Vitamin B-6) famotidine 20 mg tablet 20 mg PO BID 06/23/24 06/28/24 vitamins-iron fumarate 65 1 tab PO HS 06/28/24 06/28/24 mg iron-folic acid 1 mg tablet Previous Rx's Medication Instructions Recorded hydrocortisone 2.5 % topical cream 1 applic [place] DAILY PRN hemorrhoids 05/01/24 with perineal applicator #30 grams (Anusol-HC) ondansetron 4 mg disintegrating 4 mg PO Q8H PRN nausea and 05/11/24 tablet vomiting #20 tabs breast pump #1 ea 06/15/24 oxycodone 5 mg tablet 5 mg PO Q6H PRN pain #20 tabs 06/26/24 nifedipine 30 mg tablet,extended 30 mg PO QAM #30 tabs 06/30/24 release 24 hr (Procardia XL) Results & Data (ED) Vital Signs Vital Signs - 24 hr 06/28/24 14:26 06/28/24 15:20 06/28/24 15:33 Temperature 36.7 C Temperature Source Temporal Artery Scan Pulse Rate 74 55 L Pulse Rate [Apical] 53 L Respiratory Rate 18 26 H Respiratory Effort / Characteristics Non-Labored Spontaneous Respiratory Depth Normal Blood Pressure 164/113 H Blood Pressure [Left Arm] 169/100 H Blood Pressure Mean 130 Blood Pressure Mean [Left Arm] 123 Blood Pressure Position Sitting Pulse Oximetry 97 98 Oxygen Delivery Method Room Air Room Air Sepsis Recent Fever Within 48 Hours No Sepsis New/Unexplained Change in Mental Status No Sepsis Action Taken by Nursing No Action Required 06/28/24 15:33 Temperature Temperature Source Pulse Rate 57 L Pulse Rate [Apical] Respiratory Rate 23 Respiratory Effort / Characteristics Respiratory Depth Blood Pressure Blood Pressure [Left Arm] Blood Pressure Mean Blood Pressure Mean [Left Arm] Blood Pressure Position Pulse Oximetry 98 Oxygen Delivery Method Room Air Sepsis Recent Fever Within 48 Hours Sepsis New/Unexplained Change in Mental Status Sepsis Action Taken by Custodial Medications Current Medication List: was personally reviewed by me Laboratory Data Attestation: I reviewed the patient's lab results. 06/30/24 04:31 06/30/24 12:46 Lab Results 06/28/24 06/28/24 Range/Units 14:55 15:11 WBC 9.01 (4.8-10.8) K/ul RBC 3.39 L (4.20-5.40) M/uL Hgb 10.1 L (12.0-16.0) g/dl Hct 31.3 L (37.0-47.0) % MCV 92.3 (80.0-100.0) fL MCH 29.8 (25.0-34.0) pg MCHC 32.3 (32.0-36.0) g/dL RDW Std Deviation 48.1 H (36.4-46.3) fL RDW Coeff of Aminta 14.3 (11.5-14.5) % Plt Count 344 (130-400) K/uL MPV 9.2 L (9.4-12.4) fL Immature Gran % (Auto) 1.9 % Neut % (Auto) 70.9 % Lymph % (Auto) 18.6 % [place] % (Auto) 6.0 % Eos % (Auto) 1.9 % Baso % (Auto) 0.7 % Neut # (Auto) 6.39 (1.40-6.50) K/uL Lymph # (Auto) 1.68 (1.20-3.40) K/uL [place] # (Auto) 0.54 (0.11-0.59) K/uL Eos # (Auto) 0.17 (0.00-0.50) K/uL Baso # (Auto) 0.06 (0.00-0.20) K/uL Immature Gran # (Auto) 0.17 (0.01-0.20) K/uL Absolute Nucleated RBC 0.02 (0.00-0.12) K/uL Nucleated RBC % (auto) 0.2 % PT 10.3 (9.0-12.0) Seconds INR 0.9 (0.9-1.1) APTT 25 (21-31) Seconds PTT Ratio 0.9 Sodium 141 (136-145) mmol/L Potassium 3.4 L (3.5-5.1) mmol/L Chloride 107 (98-107) mmol/L Carbon Dioxide 26 (21-32) mmol/L Anion Gap 8 (3-11) BUN 12 (6-23) mg/dl Creatinine 0.52 L (0.6-1.2) mg/dl Est Cr Clr Drug Dosing 155.3 ml/min Est GFR ( Amer) 140.5 ml/min Est GFR (Non-Af Amer) 121.2 ml/min BUN/Creatinine Ratio 23.1 H (10-20) Glucose 76 (70-99(Fasting)) mg/dl Calcium 8.4 L (8.6-10.3) mg/dl Total Bilirubin 0.5 (0.2-1.0) mg/dl AST 76 H (13-39) U/L ALT 65 H (7-52) U/L Alkaline Phosphatase 110 H (34-104) U/L Troponin I High Sens 11.6 (0-14) pg/ml Total Protein 5.9 L (6.0-8.3) gm/dl Albumin 3.3 L (3.4-5.0) gm/dl Globulin 2.6 (2.5-4.0) gm/dl Albumin/Globulin Ratio 1.3 (0.9-2) Lipase 5 L (11-82) U/L Urine Color Dark Yellow Urine Appearance Clear (Clear) Urine pH 6.5 (4.5-7.5) Ur Specific [place] 1.025 (1.000-1.030) Urine Protein 1+ H (Negative) Urine Glucose (UA) Negative (Negative) Urine Ketones Negative (Negative) Urine Blood Negative (Negative) Urine Nitrite Negative (Negative) Urine Bilirubin Negative (Negative) Urine Urobilinogen Negative (Negative) Ur Leukocyte Esterase Trace H (Negative) Urine WBC (Auto) 0-5 (0-5) /hpf Urine RBC (Auto) 0-2 (0-2) /hpf U Hyaline Cast (Auto) 0-2 (0-2) /lpf U Epithel Cells (Auto) 0-2 (0-2) /hpf Urine Bacteria (Auto) None Seen (None Seen) Administered Medications Discontinued Medications Acetaminophen (Acetaminophen 325 Mg Tab) 650 mg PO Q4H PRN PRN Reason: Pain or Fever Stop: 07/28/24 22:15 Last Admin: 06/30/24 05:57 Dose: 650 mg Documented By: Admin: 06/29/24 16:52 Dose: 650 mg Documented By: Admin: 06/29/24 08:28 Dose: 650 mg Documented By: Admin: 06/29/24 03:04 Dose: 650 mg Documented By: Admin: 06/28/24 22:53 Dose: 650 mg Documented By: MiltonT Docusate Sodium (Docusate Sodium Syrup 20mg/5ml 480ml) 50 mg PO BID [facility] Stop: 07/29/24 10:29 Last Admin: 06/29/24 12:15 Dose: Not Given Documented By: Docusate Sodium (Docusate Sodium Syrup 100 Mg/10 Ml Udc) 50 mg PO BID [facility] Stop: 07/29/24 11:29 Last Admin: 06/30/24 09:28 Dose: Not Given Documented By: Admin: 06/29/24 20:56 Dose: 50 mg Documented By: Admin: 06/29/24 11:40 Dose: 50 mg Documented By: Famotidine (Famotidine 20 Mg Tab) 20 mg PO BID [facility] Stop: 07/29/24 10:29 Last Admin: 06/30/24 09:27 Dose: 20 mg Documented By: Admin: 06/29/24 20:57 Dose: 20 mg Documented By: Admin: 06/29/24 11:40 Dose: 20 mg Documented By: Furosemide (Furosemide 40 Mg/4 Ml Vial) 40 mg IV ONE ONE Stop: 06/28/24 16:49 Last Admin: 06/28/24 17:07 Dose: 40 mg Documented By: DAVID Furosemide (Furosemide 40 Mg/4 Ml Vial) 40 mg IV ONE ONE Stop: 06/28/24 20:00 Last Admin: 06/28/24 21:13 Dose: 40 mg Documented By: AURORA Furosemide (Furosemide 40 Mg/4 Ml Vial) 40 mg IV BID17 [facility] Stop: 07/29/24 08:59 Last Admin: 06/29/24 16:56 Dose: 40 mg Documented By: Admin: 06/29/24 08:21 Dose: 40 mg Documented By: Gadobutrol (Gadobutrol 65ml Vial) 9 ml IV ONCE ONE Stop: 06/29/24 22:20 Last Admin: 06/29/24 22:21 Dose: 9 ml Documented By: Hydralazine HCl (Hydralazine Hcl 20 Mg/Ml Vial) 10 mg IV NOW STA Stop: 06/28/24 15:19 Last Admin: 06/28/24 15:28 Dose: 10 mg Documented By: DAVID Hydromorphone HCl (Hydromorphone Inj 0.5 Mg/0.5 Ml Syr) 0.5 mg IV NOW STA Stop: 06/29/24 21:22 Last Admin: 06/29/24 21:59 Dose: Not Given Documented By: ODETTE Hydromorphone HCl (Hydromorphone Inj 0.5 Mg/0.5 Ml Syr) Confirm Administered Dose 0.5 mg .ROUTE .STK-MED ONE Stop: 06/29/24 21:26 Last Admin: 06/29/24 21:26 Dose: 0.5 mg Documented By: ODETTE Magnesium Sulfate/Dextrose (Magnesium Sulfate / D5w) 1 gm in 100 mls @ 200 mls/hr IV Q30M TERRY Stop: 06/28/24 16:18 Last Infusion: 06/28/24 21:00 Dose: Infused Documented By: Admin: 06/28/24 17:06 Dose: 200 mls/hr Documented By: Infusion: 06/28/24 17:04 Dose: Infused Documented By: Admin: 06/28/24 15:30 Dose: 200 mls/hr Documented By: DAVID Sodium Chloride (Nss) 1,000 mls @ 100 mls/hr IV .Q10H TERRY Stop: 07/28/24 15:59 Last Infusion: 06/29/24 01:04 Dose: Infused Documented By: Admin: 06/28/24 17:15 Dose: 100 mls/hr Documented By: DAVID Acetaminophen (Ofirmev) 1,000 mg in 100 mls @ 400 mls/hr IV NOW STA Stop: 06/28/24 16:06 Last Infusion: 06/28/24 17:04 Dose: Infused Documented By: Admin: 06/28/24 16:22 Dose: 400 mls/hr Documented By: AM Magnesium Sulfate (Magnesium Sulfate / Wtr) 40 gm in 1,000 mls @ 50 mls/hr IV .Q20H TERRY Stop: 07/28/24 16:59 Last Infusion: 06/29/24 12:33 Dose: Infused Documented By: MS Co-signed By: TM Infusion: 06/28/24 19:10 Dose: 50 mls/hr Documented By: RB Co-signed By: RRMilton Infusion: 06/28/24 18:50 Dose: 150 mls/hr Documented By: RB Co-signed By: AEF Admin: 06/28/24 17:58 Dose: 50 mls/hr Documented By: RB Co-signed By: SMM Lactated Ringer's (Lr) 1,000 mls @ 125 mls/hr IV .Q8H TERRY Stop: 07/28/24 16:59 Last Infusion: 06/29/24 12:33 Dose: Infused Documented By: Admin: 06/28/24 18:07 Dose: 125 mls/hr Documented By: RB Potassium Chloride (K Bill / Wtr) 10 meq in 100 mls @ 100 mls/hr IV Q1H TERRY Stop: 06/29/24 01:29 Last Infusion: 06/29/24 03:20 Dose: Infused Documented By: Admin: 06/29/24 02:05 Dose: 100 mls/hr Documented By: Infusion: 06/29/24 01:54 Dose: Infused Documented By: Admin: 06/29/24 00:54 Dose: 100 mls/hr Documented By: Infusion: 06/29/24 00:54 Dose: Infused Documented By: Admin: 06/28/24 23:54 Dose: 100 mls/hr Documented By: Infusion: 06/28/24 23:54 Dose: Infused Documented By: Admin: 06/28/24 23:07 Dose: 100 mls/hr Documented By: JT Magnesium Sulfate (Magnesium Sulfate / Wtr) 40 gm in 1,000 mls @ 50 mls/hr IV .Q20H TERRY Stop: 07/28/24 22:29 Last Infusion: 06/29/24 20:30 Dose: Infused Documented By: GAGEG Co-signed By: [facility] Infusion: 06/29/24 19:31 Dose: 50 mls/hr Documented By: ESG Co-signed By: Admin: 06/29/24 12:19 Dose: 50 mls/hr Documented By: Co-signed By: MI Lactated Ringer's (Lr) 1,000 mls @ 25 mls/hr IV .Q24H TERRY Stop: 07/29/24 03:59 Last Admin: 06/30/24 05:09 Dose: Not Given Documented By: Infusion: 06/30/24 05:09 Dose: Infused Documented By: Infusion: 06/30/24 02:10 Dose: 25 mls/hr Documented By: Infusion: 06/29/24 22:35 Dose: 25 mls/hr Documented By: Infusion: 06/29/24 21:30 Dose: 0 mls/hr Documented By: Admin: 06/29/24 11:42 Dose: 25 mls/hr Documented By: Prochlorperazine 5 mg/ Syringe 5 mls @ 5 mls/min IV ONE ONE Stop: 06/29/24 20:36 Last Admin: 06/29/24 20:54 Dose: 5 mls/min Documented By: ESNeftali Potassium Chloride (K Bill / Wtr) 10 meq in 100 mls @ 100 mls/hr IV Q1H TERRY Stop: 06/30/24 00:44 Last Infusion: 06/30/24 05:09 Dose: Infused Documented By: Admin: 06/30/24 02:10 Dose: 100 mls/hr Documented By: Infusion: 06/30/24 01:45 Dose: Infused Documented By: Admin: 06/30/24 00:45 Dose: 100 mls/hr Documented By: Infusion: 06/30/24 00:35 Dose: Infused Documented By: Admin: 06/29/24 23:35 Dose: 100 mls/hr Documented By: Infusion: 06/29/24 23:19 Dose: Infused Documented By: Admin: 06/29/24 22:19 Dose: 100 mls/hr Documented By: ESG Calcium Gluconate () 1,000 mg in 60 mls @ 240 mls/hr IV NOW STA Stop: 06/30/24 05:35 Last Infusion: 06/30/24 06:19 Dose: Infused Documented By: Admin: 06/30/24 05:48 Dose: 240 mls/hr Documented By: ODETTE Ibuprofen (Ibuprofen 600 Mg Tab) 600 mg PO QID PRN PRN Reason: Pain Stop: 07/28/24 18:16 Last Admin: 06/29/24 18:51 Dose: 600 mg Documented By: Admin: 06/29/24 07:33 Dose: 600 mg Documented By: Admin: 06/28/24 19:12 Dose: 600 mg Documented By: RB Ioversol (Optiray 320 125ml) 99 ml IV ONCE ONE Stop: 06/28/24 16:10 Last Admin: 06/28/24 16:09 Dose: 99 ml Documented By: DELICIA Labetalol HCl (Labetalol Hcl Iv 5 Mg/Ml 20ml) 10 mg IV NOW STA Stop: 06/28/24 14:54 Last Admin: 06/28/24 15:19 Dose: Not Given Documented By: MMN Magnesium Sulfate (Mag Sulfate 4gm Bolus From Bag) 2 gm IV ONE ONE Stop: 06/28/24 16:57 Last Admin: 06/28/24 19:15 Dose: 2 gm Documented By: JOHNIE Co-signed By: MAURY Nifedipine (Nifedipine 10 Mg Cap) 10 mg PO Q8H TERRY Stop: 07/29/24 09:59 Last Admin: 06/30/24 02:18 Dose: 10 mg Documented By: Admin: 06/29/24 16:56 Dose: 10 mg Documented By: Admin: 06/29/24 10:56 Dose: 10 mg Documented By: Nifedipine (Nifedipine Extended Rel 30 Mg Tabcr) 30 mg PO QAM TERRY Stop: 07/30/24 08:59 Last Admin: 06/30/24 09:27 Dose: 30 mg Documented By: CRUZ Ondansetron HCl (Ondansetron Inj 2 Mg/Ml 2 Ml Vial) 4 mg IV Q6H PRN PRN Reason: Nausea And Vomiting Stop: 07/28/24 18:38 Last Admin: 06/29/24 17:25 Dose: 4 mg Documented By: Ondansetron HCl (Ondansetron Inj 2 Mg/Ml 2 Ml Vial) Confirm Administered Dose 4 mg .ROUTE .STK-MED ONE Stop: 06/28/24 18:52 Last Admin: 06/28/24 18:54 Dose: 4 mg Documented By: RB Potassium Chloride (Potassium Chloride Crtab 20 Meq Tabcr) 40 meq PO NOW STA Stop: 06/28/24 16:49 Last Admin: 06/28/24 17:04 Dose: 40 meq Documented By: AVM Potassium Chloride (Potassium Chloride Crtab 20 Meq Tabcr) 40 meq PO NOW STA Stop: 06/28/24 20:42 Last Admin: 06/28/24 21:14 Dose: 40 meq Documented By: JT Potassium Chloride (Potassium Chloride Crtab 20 Meq Tabcr) 40 meq PO NOW ONE Stop: 06/29/24 20:11 Last Admin: 06/29/24 20:56 Dose: 40 meq Documented By: ESG Potassium Chloride (Potassium Chloride Crtab 20 Meq Tabcr) 40 meq PO NOW STA Stop: 06/30/24 05:15 Last Admin: 06/30/24 05:53 Dose: 40 meq Documented By: ESG Prenat Multivit/Clamp Jig Assembler/Iron/Folic Ac ( Vitamin 1 Tab) 1 tab PO HS TERRY Stop: 07/29/24 20:59 Last Admin: 06/29/24 20:57 Dose: 1 tab Documented By: ESG Sertraline HCl (Sertraline Hcl 100 Mg Tablet) 100 mg PO QAM TERRY Stop: 07/29/24 10:29 Last Admin: 06/30/24 09:27 Dose: 100 mg Documented By: Admin: 06/29/24 11:40 Dose: 100 mg Documented By: MS Imaging Data Radiologist's Impression: Chest X-Ray 06/28/24 14:59 XR chest 1V portable HISTORY: 39 years-old Female Chest pain, nonspecific COMPARISON: CTA chest of same day TECHNIQUE: AP view of the chest FINDINGS: Cardiac silhouette is enlarged. Reticular interstitial densities correspond with intralobular septal thickening on the same day CTA chest. Small pleural effusions and mild bibasilar densities, likely atelectatic. No pneumothorax. Bones appear intact. IMPRESSION: Interstitial pulmonary edema with small pleural effusions. ACT 112: Negative or not required by law. The above report was generated using voice recognition software. It may contain grammatical, syntax or spelling errors. Electronically signed by: Otoniel Willis M.D. 06/28/2024 4:23 PM Chest CTA 06/28/24 15:46 CT ANGIOGRAPHY OF THE CHEST, PULMONARY EMBOLUS PROTOCOL CLINICAL HISTORY: PE, 4 day post , preeclampsia, pleuritic CP COMPARISON STUDY: Chest November 27, 2022. TECHNIQUE: Following IV administration of 99 mL of Optiray, helical axial images of the chest were obtained utilizing the pulmonary embolus protocol. Maximal intensity projections and sagittal and coronal reformats were viewed on an independent 3D workstation. IV contrast was administered without complication. Automated exposure control was utilized for the study. A dose lowering technique was utilized adhering to the principles of ALARA. FINDINGS: No pulmonary emboli are identified. There is no thoracic aortic dissection. There is borderline cardiomegaly. No pneumothorax is present. There are trace bilateral pleural effusions. Moderate lower lung predominant interlobular septal thickening is noted. There are mild groundglass opacities. Multiple subpleural nodular opacities measure up to 6 mm. No consolidation is identified to suggest pneumonia. There is trace perihepatic ascites. Mild shortening within the medina hepatis and along the falciform ligament is present. . IMPRESSION: 1. No pulmonary emboli identified. 2. Moderate interstitial pulmonary edema with trace bilateral pleural effusions. Scattered groundglass opacities and subpleural nodular densities favor alveolar pulmonary edema. Borderline cardiomegaly. A follow-up chest CT in 6 months to ensure resolution of the nodular densities is recommended. 3. Trace perihepatic ascites. Mild stranding within the upper abdomen. Findings suggest mild volume overload. ACT 112: Negative or not required by law. Electronically signed by: Jorge Rubio M.D. 06/28/2024 4:[address] 06/28/24 15:52 CT head/brain wo con CLINICAL HISTORY: 39 years-old Female with headache, 4 d , preeclampsia. Acute headache TECHNIQUE: Multiple axial CT images of the head were obtained without contrast. A dose lowering technique was utilized adhering to the principles of ALARA. CT DOSE: 2000.16 mGy.cm COMPARISON: 10/24/2021. FINDINGS: Motion degraded exam. No acute intracranial hemorrhage, midline shift, intracranial mass, hydrocephalus, territorial ischemia or abnormal extra-axial collection. The calvarium is intact. The paranasal sinuses, mastoid air cells, and middle ear cavities are clear. IMPRESSION: No acute intracranial abnormality. ACT 112: Negative or not required by law. The above report was generated using voice recognition software. It may contain grammatical, syntax or spelling errors. Electronically signed by: Otoniel Willis M.D. 06/28/2024 4:22 PM Discharge Plan Visit Data Chief Complaint: Hypertension Stated Complaint: HIGH BLOOD PRESSURE, SWELLING, SOB ED Provider: Alison Argueta Discharge Problem: Pre-eclampsia, Elevated LFTs, Fluid overload, S/P Patient Disposition: Admitted As Inpatient Discharge Instructions Interventions: ED Discharge Assessment Last Done: 06/28/24 17:41 Discharge Problem: Pre-eclampsia Qualifiers: Trimester: unspecified trimester Qualified Code(s): O14.90 - Unspecified pre- eclampsia, unspecified trimester Fluid overload Qualifiers: Hypervolemia type: unspecified Qualified Code(s): E87.70 - Fluid overload, unspecified
[2024-06-28 16:04] LABS: Appearance Urine Clear (Clear); Bacteria Urine Automated None Seen (None Seen); Bilirubin Urine Negative (Negative); Blood Urine Negative (Negative); Cast Urine Automated 0-2 /lpf (0-2); Color Urine Dark Yellow; Epithelial Cell Urine Auto 0-2 /hpf (0-2); Glucose Urine UA Negative (Negative); Ketones Urine Negative (Negative); Leukocyte Esterase Urine Trace (Negative); Nitrite Urine Negative (Negative); Protein Urine 1+ (Negative); RBC Urine Automated 0-2 /hpf (0-2); Specific Gravity Urine 1.025 (1.000-1.030); Urobilinogen Urine Negative (Negative); WBC Urine Automated 0-5 /hpf (0-5); pH Urine 6.5 (4.5-7.5)
[2024-06-28] MEDS: OPTIRAY 320 125ml IV ONE (16:09)
[2024-06-28] MEDS: ACETAMINOPHEN 1,000 MG/100 ML VIAL IV STA (16:22)
--- NOTE | 2024-06-28 16:23 | CT Scan Report ---
CT head/brain wo con CLINICAL HISTORY: 39 years-old Female with headache, 4 d , preeclampsia. Acute headache TECHNIQUE: Multiple axial CT images of the head were obtained without contrast. A dose lowering tech nique was utilized adhering to the principles of ALARA. CT DOSE: 2000.16 mGy.cm COMPARISON: 10/24/2021. FINDINGS: Motion degraded exam. No acute intracranial hemorrhage, midline shift, intracranial mass, hydrocephal us, territorial ischemia or abnormal extra-axial collection. The calvarium is intact. The paranasal sinuses, mastoid air cells, and middle ear cavities are clear . IMPRESSION: No acute intracranial abnormality. ACT 112: Negative or not required by law. The above report was generated using voice recognition software. It may contain grammatical, syntax o r spelling errors. Electronically signed by: Otoniel Willis M.D. 06/28/2024 4:22 PM
--- NOTE | 2024-06-28 16:25 | XRay Report ---
XR chest 1V portable HISTORY: 39 years-old Female Chest pain, nonspecific COMPARISON: CTA chest of same day TECHNIQUE: AP view of the chest FINDINGS: Cardiac silhouette is enlarged. Reticular interstitial densities correspond with intralobular septal thickening on the same day CTA chest. Small pleural effusions and mild bibasilar densities, likely at electatic. No pneumothorax. Bones appear intact. IMPRESSION: Interstitial pulmonary edema with small pleural effusions. ACT 112: Negative or not required by law. The above report was generated using voice recognition software. It may contain grammatical, syntax o r spelling errors. Electronically signed by: Otoniel Willis M.D. 06/28/2024 4:23 PM
--- NOTE | 2024-06-28 16:32 | CT Scan Report ---
CT ANGIOGRAPHY OF THE CHEST, PULMONARY EMBOLUS PROTOCOL CLINICAL HISTORY: PE, 4 day post , preeclampsia, pleuritic CP COMPARISON STUDY: Chest November 27, 2022. TECHNIQUE: Following IV administration of 99 mL of Optiray, helical axial images of the chest were ob tained utilizing the pulmonary embolus protocol. Maximal intensity projections and sagittal and renee nal reformats were viewed on an independent 3D workstation. IV contrast was administered without com plication. Automated exposure control was utilized for the study. A dose lowering technique was uti lized adhering to the principles of ALARA. FINDINGS: No pulmonary emboli are identified. There is no thoracic aortic dissection. There is borde rline cardiomegaly. No pneumothorax is present. There are trace bilateral pleural effusions. Moderate lower lung predominant interlobular septal thickening is noted. There are mild groundglass opacities . Multiple subpleural nodular opacities measure up to 6 mm. No consolidation is identified to suggest pneumonia. There is trace perihepatic ascites. Mild shortening within the medina hepatis and along th e falciform ligament is present. . IMPRESSION: 1. No pulmonary emboli identified. 2. Moderate interstitial pulmonary edema with trace bilateral pleural effusions. Scattered groundglas s opacities and subpleural nodular densities favor alveolar pulmonary edema. Borderline cardiomegaly. A follow-up chest CT in 6 months to ensure resolution of the nodular densities is recommended. 3. Trace perihepatic ascites. Mild stranding within the upper abdomen. Findings suggest mild volume o verload. ACT 112: Negative or not required by law. Electronically signed by: Jorge Rubio M.D. 06/28/2024 4:31 PM
[2024-06-28] MEDS: POTASSIUM CHLORIDE CRTAB 20 MEQ TABCR PO STA ×2 (17:04→21:14)
[2024-06-28] MEDS: FUROSEMIDE 40 MG/4 ML VIAL IV ONE ×2 (17:07→21:13)
[2024-06-28] MEDS: SODIUM CHLORIDE 0.9% 1,000 ML IV SCH (17:15)
[2024-06-28] MEDS: MAGNESIUM SULFATE / WTR 40 GM/1,000 ML BAG IV SCH (17:58)
[2024-06-28] MEDS: LACTATED RINGER'S 1,000 ML IV SCH (18:07)
--- NOTE | 2024-06-28 18:47 | History & Physical Report ---
Date of Service June 28, 2024 Assessment & Plan (1) Preeclampsia: Plan pod #5, elevated blood pressures in severe range. Responded to one dose of hydralazine. Slightly bumped lfts, all consistent with pet. PUlmonary edema likely secondary to fluid overload from her recent surgery or a complication of preeclampsia. CT notes ? cardiomegaly, and with continued chest pressure. Will consult medicine to also evaluate patient and make sure I am not missing anything. Treating with mag currently, giving another 2gm bolus as only had apparently 2 in the ED. Zofran for nausea. Just ordered another EKG. Patient does have some hx of anxiety and this may be contributing to the overall picture. Repeat labs in 6 hours. Gibson and close monitoring of uop. Has had well over 2000cc out of urine since lasix. Will continue to watch closely. Admission and Anticipated Discharge Date Admission Date: June 28, 2024 History of Present Illness Chief Complaint: sob, high blood pressure Primary Care Provider: Ghazala Fuchs DO Patient is a 39yowf s/p repeat c/s on 06/23 so she is pod 5. Patient developed GHTN at 37 weeks and was delivered. Her blood pressures were in the mild range and she had no issues with bps in the immediate pp period. She started to feel poorly yesterday with n/v, mohr, sob and had elevated blood pressures. She reached out to the food production worker doctor last night and was advised unless things got worse , to go to the office today for evaluation. Patient was really unable to sleep all night. She notes sob and really could not lie flat. She also noted pain with deep inspiration in the lower chest/RUQ area. No cough. no chest pain. She has continued to feel nauseated. She felt worse today and presented to the ED ismael after she noted blood pressure in 160s at home. On presentation, she had a blood pressure of 164/113. She was given one dose of hydralazine 10mg and a bolus of mag (1-2 grams, not sure how much). Given her mohr, she had a head CT which was negative. Had chest CT to r/o pe with the following findings. IMPRESSION: 1. No pulmonary emboli identified. 2. Moderate interstitial pulmonary edema with trace bilateral pleural effusions. Scattered groundglass opacities and subpleural nodular densities favor alveolar pulmonary edema. Borderline cardiomegaly. A follow-up chest CT in 6 months to ensure resolution of the nodular densities is recommended. 3. Trace perihepatic ascites. Mild stranding within the upper abdomen. Findings suggest mild volume overload. Patient has normal plts, h/h consistent with post op and slightly elevated lfts but not twice noraml. After this she was given a dose of lasix. She now presents in transfer to labor and delivery for preeclampsia with severe BP features. Allergies Allergy/AdvReac Type Severity Reaction Status Date / Time cephalexin [From Keflex] Allergy Intermediate Rash Verified 06/28/24 16:48 metformin Allergy Mild Rash Verified 06/28/24 16:48 neomycin Allergy Mild Rash Verified 06/28/24 16:48 nickel Allergy Mild cellulitus Verified 06/28/24 16:48 type rash polymyxin B Allergy Mild Rash Verified 06/28/24 16:48 aspirin AdvReac Mild Fever Verified 06/28/24 16:48 Home Medications Medication Instructions Recorded Confirmed Type albuterol sulfate 90 mcg/actuation 2 puff inhalation QID PRN Wheezing 03/08/23 06/28/24 History aerosol inhaler sertraline 100 mg tablet 100 mg PO QAM 03/08/23 06/28/24 History hydrocortisone 2.5 % topical cream 1 applic [place] DAILY PRN hemorrhoids 05/01/24 06/28/24 Rx with perineal applicator #30 grams (Anusol-HC) ondansetron 4 mg disintegrating 4 mg PO Q8H PRN nausea and 05/11/24 06/28/24 Rx tablet vomiting #20 tabs breast pump #1 ea 06/15/24 06/23/24 Rx docusate sodium 50 mg capsule 50 mg PO BID 06/22/24 06/28/24 History doxylamine succinate 25 mg tablet 12.5 mg PO HS PRN Morning Sickness 06/22/24 06/28/24 History pyridoxine (vitamin B6) 50 mg 50 mg PO BID 06/22/24 06/28/24 History tablet (Vitamin B-6) famotidine 20 mg tablet 20 mg PO BID 06/23/24 06/28/24 History oxycodone 5 mg tablet 5 mg PO Q6H PRN pain #20 tabs 06/26/24 06/28/24 Rx vitamins-iron fumarate 65 1 tab PO HS 06/28/24 06/28/24 History mg iron-folic acid 1 mg tablet Patient History Medical History GERD (gastroesophageal reflux disease) due to Hx of renal calculi resulting from in-vitro fertilization Scarlet fever as child Fifth disease as teen Hypothyroidism no longer on meds > resolved Stenosis, cervical spine "mild" Anxiety and depression Hx of supraventricular tachycardia remote paroxysmal SVT several years ago s/p unremarkable holter/stress testing, "released" by cardio/no further follow-up recommended Asthma "mild"/rare inhaler use Surgical History Hx of section History of surgery D&E 12/02/2020 History of dilatation and curettage Nausea and vomiting after administration of anesthetic agent History of esophagogastroduodenoscopy (EGD) History of gynecologic surgery egg retrieval History of hysterosalpingogram 2013 Hx of wisdom tooth extraction Family History Mother Family history of diabetes mellitus Heart disease Kidney disease Aunt Dyslipidemia Kidney disease Hypertension Grandmother Breast cancer Colorectal cancer Father Arthritis Grandmother (Maternal) Family hx of colon cancer Grandfather (Maternal) Family hx of colon cancer Other Depression Social History Smoking Status: Never smoker Tobacco Type: Cigarettes Second Hand Exposure: No; Do You Dip or Chew Tobacco: No; Hx Alcohol Use: No Hx Substance Use: No Preferred Language: French Communication Ability: Effective Automobile Repair Service Estimator Required: No Beliefs That Will Affect Care: None marital status: marital status details: Cliff Gan(40) [phone] Current Living Situation: Spouse and Family Current Living Situation Comment: lives with spouse, child, no pets current occupational status: employed 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 @ [employer] Feels Safe at Home: Yes Assistive Devices: None Physical Exam Constitutional: WD/WN, vitals as above Neck: trachea midline, no thyromegaly (no jvd) Respiratory: normal respiratory effort, lungs clear to auscultation Cardiovascular: RRR, no murmur, no edema Extremities: + edema (+1); no calf tenderness Gastrointestinal (Abdomen): soft, slightly distended, tender to palpation c/w postop, no significant ruq pain to palpation incision c/d/i Neurologic: patellar DTR's 2+ bilat, sensation intact (no clonus) Psychiatric: A+Ox3, euthymic affect Results & Data Vital Signs (Past 12 Hours) Vital Signs Temp Pulse Pulse Resp BP BP Pulse Ox 06/28/24 18:35 60 99 06/28/24 18:34 80 93 06/28/24 18:33 65 160/97 H 06/28/24 18:30 58 L 96 06/28/24 18:29 56 L 94 06/28/24 18:28 57 L 173/94 H 06/28/24 18:25 56 L 99 06/28/24 18:20 61 98 06/28/24 18:15 56 L 99 06/28/24 18:10 80 99 06/28/24 18:05 60 98 06/28/24 18:00 58 L 98 06/28/24 17:41 06/28/24 15:33 57 L 23 98 06/28/24 15:33 53 L 26 H 169/100 H 98 06/28/24 15:20 55 L 06/28/24 14:26 36.7 C 74 18 164/113 H 97 O2 Del Method 06/28/24 18:35 06/28/24 18:34 06/28/24 18:33 06/28/24 18:30 06/28/24 18:29 06/28/24 18:28 06/28/24 18:25 06/28/24 18:20 06/28/24 18:15 06/28/24 18:10 06/28/24 18:05 06/28/24 18:00 06/28/24 17:41 Room Air 06/28/24 15:33 Room Air 06/28/24 15:33 Room Air 06/28/24 15:20 06/28/24 14:26 Room Air Coding Level of Care Code 19837 INT INP/OBS CARE 2/55MIN Diagnoses Pre-eclampsia in third trimester O14.93 Trimester: third trimester (1) Preeclampsia Trimester: third trimester Qualified Code(s): O14.93 - Unspecified pre- eclampsia, third trimester
[2024-06-28] MEDS: ONDANSETRON INJ 2 MG/ML 2 ML VIAL ONE (18:54)
--- NOTE | 2024-06-28 19:06 | Hospitalist Consultation ---
Date of Consultation June 28, 2024 History of Present Illness Reason for Consultation: SOB, chest pain Attending Physician: Neisha Campos MD, FACOG History of Present Illness Pt is a 39 yo female with recent delivery by repeat 06/23 presenting to the hospital due to SOB, chest pain, and elevated BP. Pt delivered her third child 06/[address] C section at 37 6/7 d/t pre eclampsia w/o severe features. Delivery was uncomplicated. Allergies Allergy/AdvReac Type Severity Reaction Status Date / Time cephalexin [From Keflex] Allergy Intermediate Rash Verified 06/28/24 16:48 metformin Allergy Mild Rash Verified 06/28/24 16:48 neomycin Allergy Mild Rash Verified 06/28/24 16:48 nickel Allergy Mild cellulitus Verified 06/28/24 16:48 type rash polymyxin B Allergy Mild Rash Verified 06/28/24 16:48 aspirin AdvReac Mild Fever Verified 06/28/24 16:48 Home Medications Medication Instructions Recorded Confirmed Type albuterol sulfate 90 mcg/actuation 2 puff inhalation QID PRN Wheezing 03/08/23 06/28/24 History aerosol inhaler sertraline 100 mg tablet 100 mg PO QAM 03/08/23 06/28/24 History hydrocortisone 2.5 % topical cream 1 applic [place] DAILY PRN hemorrhoids 05/01/24 06/28/24 Rx with perineal applicator #30 grams (Anusol-HC) ondansetron 4 mg disintegrating 4 mg PO Q8H PRN nausea and 05/11/24 06/28/24 Rx tablet vomiting #20 tabs breast pump #1 ea 06/15/24 06/23/24 Rx docusate sodium 50 mg capsule 50 mg PO BID 06/22/24 06/28/24 History doxylamine succinate 25 mg tablet 12.5 mg PO HS PRN Morning Sickness 06/22/24 06/28/24 History pyridoxine (vitamin B6) 50 mg 50 mg PO BID 06/22/24 06/28/24 History tablet (Vitamin B-6) famotidine 20 mg tablet 20 mg PO BID 06/23/24 06/28/24 History oxycodone 5 mg tablet 5 mg PO Q6H PRN pain #20 tabs 06/26/24 06/28/24 Rx vitamins-iron fumarate 65 1 tab PO HS 06/28/24 06/28/24 History mg iron-folic acid 1 mg tablet Patient History Medical History GERD (gastroesophageal reflux disease) due to Hx of renal calculi resulting from in-vitro fertilization Scarlet fever as child Fifth disease as teen Hypothyroidism no longer on meds > resolved Stenosis, cervical spine "mild" Anxiety and depression Hx of supraventricular tachycardia remote paroxysmal SVT several years ago s/p unremarkable holter/stress testing, "released" by cardio/no further follow-up recommended Asthma "mild"/rare inhaler use Surgical History Hx of section History of surgery D&E 12/02/2020 History of dilatation and curettage Nausea and vomiting after administration of anesthetic agent History of esophagogastroduodenoscopy (EGD) History of gynecologic surgery egg retrieval History of hysterosalpingogram 2013 Hx of wisdom tooth extraction Family History Mother Family history of diabetes mellitus Heart disease Kidney disease Aunt Dyslipidemia Kidney disease Hypertension Grandmother Breast cancer Colorectal cancer Father Arthritis Grandmother (Maternal) Family hx of colon cancer Grandfather (Maternal) Family hx of colon cancer Other Depression Social History Smoking Status: Never smoker Tobacco Type: Cigarettes Second Hand Exposure: No; Do You Dip or Chew Tobacco: No; Hx Alcohol Use: No Hx Substance Use: No Preferred Language: Persian Communication Ability: Effective Monogram And Letter Paster Required: No Beliefs That Will Affect Care: None marital status: marital status details: Cliff Gan(40) [phone] Current Living Situation: Spouse and Family Current Living Situation Comment: lives with spouse, child, no pets 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 occupational status: employed 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 Assistive Devices: None Results & Data Results & Data Vital Signs (Past 12 Hours) Vital Signs Temp Pulse Pulse Resp BP BP Pulse Ox 06/28/24 19:05 85 97 06/28/24 19:01 73 145/93 H 06/28/24 19:00 63 99 06/28/24 18:56 68 150/90 H 06/28/24 18:55 73 99 06/28/24 18:51 63 153/92 H 06/28/24 18:50 79 99 06/28/24 18:47 87 93 06/28/24 18:46 63 157/100 H 06/28/24 18:45 75 100 06/28/24 18:41 64 155/98 H 06/28/24 18:40 66 99 06/28/24 18:35 60 99 06/28/24 18:34 80 93 06/28/24 18:33 65 160/97 H 06/28/24 18:30 58 L 96 06/28/24 18:29 56 L 94 06/28/24 18:28 57 L 173/94 H 06/28/24 18:25 56 L 99 06/28/24 18:20 61 98 06/28/24 18:15 56 L 99 06/28/24 18:10 80 99 06/28/24 18:05 60 98 06/28/24 18:00 58 L 98 06/28/24 17:41 06/28/24 15:33 57 L 23 98 06/28/24 15:33 53 L 26 H 169/100 H 98 06/28/24 15:20 55 L 06/28/24 14:26 36.7 C 74 18 164/113 H 97 O2 Del Method 06/28/24 19:05 06/28/24 19:01 06/28/24 19:00 06/28/24 18:56 06/28/24 18:55 06/28/24 18:51 06/28/24 18:50 06/28/24 18:47 06/28/24 18:46 06/28/24 18:45 06/28/24 18:41 06/28/24 18:40 06/28/24 18:35 06/28/24 18:34 06/28/24 18:33 06/28/24 18:30 06/28/24 18:29 06/28/24 18:28 06/28/24 18:25 06/28/24 18:20 06/28/24 18:15 06/28/24 18:10 06/28/24 18:05 06/28/24 18:00 06/28/24 17:41 Room Air 06/28/24 15:33 Room Air 06/28/24 15:33 Room Air 06/28/24 15:20 06/28/24 14:26 Room Air
[2024-06-28] MEDS: IBUPROFEN 600 MG TAB PO PRN (19:12)
[2024-06-28] MEDS: MAG SULFATE 4GM BOLUS FROM BAG IV ONE (19:15)
--- NOTE | 2024-06-28 19:41 | Communication Note ---
Date of Service: June 28, 2024 Surekha seen and evaluated by Dr. Valdovinos and Dr. Arizmendi. They think, and I concur, that the patient should be moved to a higher level of care for closer monitoring in the event that this is a cardiomyopathy. Second EKG was reassuring. she is sating 100% on room air. Hospitalist will take over her care in the transfer. Will remain on 2 gm of mag at present. Continues to note mohr and chest pressure. BPs have calmed down a bit. Will continue to follow closely with medicine.
[2024-06-28 20:08] LABS: Basophils # (auto) 0.07 K/uL (0.00-0.20); Basophils % (auto) 0.7 %; Eosinophils # (auto) 0.17 K/uL (0.00-0.50); Eosinophils % (auto) 1.8 %; Hematocrit (blood only) 32.2 % (37.0-47.0); Hemoglobin 10.7 g/dl (12.0-16.0); Immature Granulocytes # (auto) 0.19 K/uL (0.01-0.20); Lymphocytes # (auto) 1.86 K/uL (1.20-3.40); Lymphocytes % (auto) 19.3 %; Mean Corpuscular Hemoglobin 30.3 pg (25.0-34.0); Mean Corpuscular Hgb Conc 33.2 g/dL (32.0-36.0); Mean Corpuscular Volume 91.2 fL (80.0-100.0); Mean Platelet Volume 9.1 fL (9.4-12.4); Monocytes # (auto) 0.75 K/uL (0.11-0.59); Monocytes % (auto) 7.8 %; Neutrophils # (auto) 6.58 K/uL (1.40-6.50); Neutrophils % (auto) 68.4 %; Nucleated RBC # (auto) 0.05 K/uL (0.00-0.12); Nucleated RBC % (auto) 0.5 %; Platelet Count 370 K/uL (130-400); RDW Coefficient of Variation 14.2 % (11.5-14.5); Red Blood Count 3.53 M/uL (4.20-5.40); White Blood Count 9.62 K/ul (4.8-10.8)
[2024-06-28 20:20] LABS: Albumin Globulin Ratio 1.2 (0.9-2); Albumin Level 3.4 gm/dl (3.4-5.0); BUN Creatinine Ratio 20.4 (10-20); Bilirubin,Total 0.5 mg/dl (0.2-1.0); Calcium 8.7 mg/dl (8.6-10.3); Creatinine Clr Calc Pharmacy 164.8 ml/min; Est GFR (African American) 143.2 ml/min; Est GFR (Non-African American) 123.6 ml/min; Globulin 2.9 gm/dl (2.5-4.0); Magnesium Therapeutic L&D Only 3.8 mg/dL (4.0-8.0); Potassium 3.1 mmol/L (3.5-5.1); Total Protein 6.3 gm/dl (6.0-8.3)
--- NOTE | 2024-06-28 20:20 | History & Physical Report ---
Date of Service June 28, 2024 Assessment & Plan (1) Pulmonary edema: Plan: Pt is a 39 yo female with recent delivery by repeat 06/23 presenting to the hospital due to SOB, chest pain, and elevated BP. Pulmonary edema - CXR showing interstitial pulmonary edema with small bilateral pleural effusions; CTA negative for PE but re-demonstrated moderate pulmonary edema with bilateral trace effusions - clinical picture most likely representing cardiomyopathy vs. pre- eclampsia w/ severe features - lab work significant for trop neg x2 and BNP elevated to 563; echo pending - s/p 40mg IV lasix in ER with good urine output; second dose of 40 mg IV lasix upon admission - IV lasix 40 mg BID ordered to start in the AM Pre-eclampsia w/ severe features - pt with recent delivery 06/23 at 37 6/7 weeks secondary to pre-eclampsia w/o severe features - pt now with elevated BP, elevated liver enzymes, headache, epigastric/RUQ pain, 1+ proteinuria, and pulmonary edema qualifying her for pre-eclampsia w/ severe features; reassuringly, pt's platelets are WNL - CT head negative - s/p hydralazine 10 mg IV x1 in the ER - goal BP <140/90; will treat BP sustained >160/90 with PRN with labetalol or hydralazine - s/p 4g mag in ER; continue with mag drip and seizure precautions - low suspicion for HELLP; pt's platelets WNL and no signs of hemolysis- will continue to monitor lab work and if any significant change in labs/symptoms, may consider RUQ US - otherwise as above Hypokalemia - K 3.4 in the ER; received 40 meq PO - repeat K 3.1; again, received 40 meq PO with the addition of K 40 meq IV - suspect continued drop secondary to diuresis - continue to monitor and replete PRN Diet: NPO, ok for sips/PO meds Code: full DVT ppx: SCDs Dispo: admit to PCU (2) state: (3) Preeclampsia, severe: (4) Hypokalemia: Admission and Anticipated Discharge Date Admission Date: June 28, 2024 History of Present Illness Chief Complaint: SOB, chest pain Primary Care Provider: Ghazala Fuchs DO Pt is a 39 yo female with recent delivery by repeat 06/23 presenting to the hospital due to SOB, chest pain, and elevated BP. Pt delivered her second child 06/[address] C section at 37 6/7 weeks d/t pre eclampsia w/o severe features. Delivery was uncomplicated. Pt notes that she was discharged Wednesday. On Wednesday, she began to feel anxious and SOB. She noticed that she could not breath while lying down. Her chest felt heavy and she was having trouble catching her breath. Her legs had also been swelling with the swelling going up her legs into her knees. She also describes an odd sensation of leg spasms/twitching/restless legs. She was checking her BPs at home, which had previously been normal, and found them to be elevated to 160-170s which prompted her to seek medical attention in the ER today. Her first was uncomplicated. She has no hx of chronic HTN. She does have a hx of SVT/frequent PACs for which she was not medicated. No other significant PMH. In the ER, pt was given labetalol 10 mg IV x1, hydralazine 10 mg IV x1, lasix 40 mg IV, PO potassium 40 meq, 1g tylenol, and 4g of mag and started on an IV mag drip. Pt originally admitted by OB but has since been transferred to medicine service. Cardio also consulted. Allergies Allergy/AdvReac Type Severity Reaction Status Date / Time cephalexin [From Keflex] Allergy Intermediate Rash Verified 06/28/24 16:48 metformin Allergy Mild Rash Verified 06/28/24 16:48 neomycin Allergy Mild Rash Verified 06/28/24 16:48 nickel Allergy Mild cellulitus Verified 06/28/24 16:48 type rash polymyxin B Allergy Mild Rash Verified 06/28/24 16:48 aspirin AdvReac Mild Fever Verified 06/28/24 16:48 Home Medications Medication Instructions Recorded Confirmed Type albuterol sulfate 90 mcg/actuation 2 puff inhalation QID PRN Wheezing 03/08/23 06/28/24 History aerosol inhaler sertraline 100 mg tablet 100 mg PO QAM 03/08/23 06/28/24 History hydrocortisone 2.5 % topical cream 1 applic AR DAILY PRN hemorrhoids 05/01/24 06/28/24 Rx with perineal applicator #30 grams (Anusol-HC) ondansetron 4 mg disintegrating 4 mg PO Q8H PRN nausea and 05/11/24 06/28/24 Rx tablet vomiting #20 tabs breast pump #1 ea 06/15/24 06/23/24 Rx docusate sodium 50 mg capsule 50 mg PO BID 06/22/24 06/28/24 History doxylamine succinate 25 mg tablet 12.5 mg PO HS PRN Morning Sickness 06/22/24 06/28/24 History pyridoxine (vitamin B6) 50 mg 50 mg PO BID 06/22/24 06/28/24 History tablet (Vitamin B-6) famotidine 20 mg tablet 20 mg PO BID 06/23/24 06/28/24 History oxycodone 5 mg tablet 5 mg PO Q6H PRN pain #20 tabs 06/26/24 06/28/24 Rx vitamins-iron fumarate 65 1 tab PO HS 06/28/24 06/28/24 History mg iron-folic acid 1 mg tablet Past Med/Surg History Problem List (Updated 06/28/24 @ 21:12 by Francy Arizmendi DO) Hypokalemia Preeclampsia, severe state Pulmonary edema Encounter for assessment with 37 weeks completed gestation Preeclampsia Elevated BP without diagnosis of hypertension Calculus of kidney affecting in third trimester Previous delivery affecting , antepartum Elderly multigravida resulting from in-vitro fertilization Encounter for anatomic survey Medical History GERD (gastroesophageal reflux disease) due to Hx of renal calculi resulting from in-vitro fertilization Scarlet fever as child Fifth disease as teen Hypothyroidism no longer on meds > resolved Stenosis, cervical spine "mild" Anxiety and depression Hx of supraventricular tachycardia remote paroxysmal SVT several years ago s/p unremarkable holter/stress testing, "released" by cardio/no further follow-up recommended Asthma "mild"/rare inhaler use Surgical History Hx of section History of surgery D&E 12/02/2020 History of dilatation and curettage Nausea and vomiting after administration of anesthetic agent History of esophagogastroduodenoscopy (EGD) History of gynecologic surgery egg retrieval History of hysterosalpingogram 2013 Hx of wisdom tooth extraction Family History Mother Family history of diabetes mellitus Heart disease Kidney disease Aunt Dyslipidemia Kidney disease Hypertension Grandmother Breast cancer Colorectal cancer Father Arthritis Grandmother (Maternal) Family hx of colon cancer Grandfather (Maternal) Family hx of colon cancer Other Depression Social History Smoking Status: Former smoker Tobacco Type: Cigarettes Smoking End Date: 5 years; Second Hand Exposure: No; Do You Dip or Chew Tobacco: No; Tobacco Cessation Education Requested by Patient: No Hx Alcohol Use: No Hx Substance Use: No Preferred Language: Italian Communication Ability: Effective [place] Required: No Beliefs That Will Affect Care: None marital status: marital status details: Cliff Gan(40) [phone] Current Living Situation: Spouse and Family Current Living Situation Comment: lives at home with and children current occupational status: employed 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 Eyes: Conjunctivae normal. Respiratory: CTA bilaterally. Non labored breathing. No rhonchi, wheezing, or crackles. Cardiovascular: RRR. No murmurs noted. Bilateral 1+ pitting LE edema. Gastrointestinal (Abdomen): Epigastric tenderness. Skin: No rashes or skin lesions noted. Neurologic: Sensation grossly intact. No FND appreciated. Psychiatric: Speech of normal pace and content. Mood and affect congruent. Results & Data Results & Data Vital Signs (Past 12 Hours) Vital Signs Temp Pulse Pulse Resp BP BP Pulse Ox 06/28/24 20:16 71 141/96 H 06/28/24 20:15 68 98 06/28/24 20:11 72 145/101 H 06/28/24 20:10 82 99 06/28/24 20:06 69 141/94 H 06/28/24 20:05 66 98 06/28/24 20:01 77 139/91 06/28/24 20:00 74 99 06/28/24 19:56 68 141/93 H 06/28/24 19:55 70 99 06/28/24 19:51 69 146/98 H 06/28/24 19:50 72 99 06/28/24 19:46 68 146/99 H 06/28/24 19:45 70 98 06/28/24 19:41 63 157/94 H 06/28/24 19:40 18 06/28/24 19:40 67 99 06/28/24 19:36 75 144/90 H 06/28/24 19:35 67 99 06/28/24 19:31 68 148/94 H 06/28/24 19:30 36.4 C L 72 20 99 06/28/24 19:26 76 154/100 H 06/28/24 19:25 82 100 06/28/24 19:21 73 143/85 H 06/28/24 19:20 91 H 99 06/28/24 19:16 80 154/100 H 06/28/24 19:15 81 99 06/28/24 19:11 69 142/90 H 06/28/24 19:10 71 99 06/28/24 19:06 75 146/100 H 06/28/24 19:05 85 97 06/28/24 19:01 73 145/93 H 06/28/24 19:00 63 99 06/28/24 18:56 68 150/90 H 06/28/24 18:55 73 99 06/28/24 18:51 63 153/92 H 06/28/24 18:50 79 99 06/28/24 18:47 87 93 06/28/24 18:46 63 157/100 H 06/28/24 18:45 75 100 06/28/24 18:41 64 155/98 H 06/28/24 18:40 66 99 06/28/24 18:35 60 99 06/28/24 18:34 80 93 06/28/24 18:33 65 160/97 H 06/28/24 18:30 58 L 96 06/28/24 18:29 56 L 94 06/28/24 18:28 57 L 173/94 H 06/28/24 18:25 56 L 99 06/28/24 18:20 61 98 06/28/24 18:15 56 L 99 06/28/24 18:10 80 99 06/28/24 18:05 60 98 06/28/24 18:00 37.2 C 58 L 16 152/98 H 98 06/28/24 17:58 14 06/28/24 17:41 06/28/24 15:33 57 L 23 98 06/28/24 15:33 53 L 26 H 169/100 H 98 06/28/24 15:20 55 L 06/28/24 14:26 36.7 C 74 18 164/113 H 97 O2 Del Method 06/28/24 20:16 06/28/24 20:15 06/28/24 20:11 06/28/24 20:10 06/28/24 20:06 06/28/24 20:05 06/28/24 20:01 06/28/24 20:00 06/28/24 19:56 06/28/24 19:55 06/28/24 19:51 06/28/24 19:50 06/28/24 19:46 06/28/24 19:45 06/28/24 19:41 06/28/24 19:40 06/28/24 19:40 06/28/24 19:36 06/28/24 19:35 06/28/24 19:31 06/28/24 19:30 06/28/24 19:26 06/28/24 19:25 06/28/24 19:21 06/28/24 19:20 06/28/24 19:16 06/28/24 19:15 06/28/24 19:11 06/28/24 19:10 06/28/24 19:06 06/28/24 19:05 06/28/24 19:01 06/28/24 19:00 06/28/24 18:56 06/28/24 18:55 06/28/24 18:51 06/28/24 18:50 06/28/24 18:47 06/28/24 18:46 06/28/24 18:45 06/28/24 18:41 06/28/24 18:40 06/28/24 18:35 06/28/24 18:34 06/28/24 18:33 06/28/24 18:30 06/28/24 18:29 06/28/24 18:28 06/28/24 18:25 06/28/24 18:20 06/28/24 18:15 06/28/24 18:10 06/28/24 18:05 06/28/24 18:00 06/28/24 17:58 06/28/24 17:41 Room Air 06/28/24 15:33 Room Air 06/28/24 15:33 Room Air 06/28/24 15:20 06/28/24 14:26 Room Air Supervising Physician Co-Signing Physician Notes Attending addendum: I have physically seen this patient, have supervised the medical residents activities, and agree with the H&P unless as otherwise noted. Assessment and Plan: Pulmonary edema- Patient initially admitted to [facility] service Dr. Campos due to shortness of breath Chest x-ray and CTA chest with moderate pulmonary edema with bilateral trace effusions She did receive furosemide 40 mg IV, labetalol 10 mg IV, hydralazine 10 mg IV a nd magnesium sulfate 2 g IV from the ED, with reported 2 L output after a few hours She was placed on magnesium infusion per Dr. Campos along with LR at 125 mL/h Hospitalist service was consulted after admission to [facility] service, then transfer to our service, as patient is recommended to be moved to the PCU for closer monitoring The patient will be admitted to telemetry for serial cardiac enzymes, serial EKG's, cardiac rhythm monitoring and a 2-D echocardiogram with Dopplers. Cardiology Dr. Garcia on-call previously had been consulted by Dr. Campos Give additional furosemide 40 mg IV this evening, and then 40 mg IV twice daily Concern regarding cardiomyopathy/preeclampsia as cause, echo as noted has been ordered Preeclampsia- Patient had undergone delivery on 06/23/2024 at 37-6/7 weeks due to preeclampsia without severe features Continue magnesium infusion as per [facility] Dr. Campos Treatment of blood pressure and pulmonary edema as above Following serial laboratories, CBC with differential, and chemistry profile [facility] [employer] Dr. Campos to continue to follow Abnormal LFTs- AST 76, ALT 65 and total protein 5.9 Normal coagulation profile Follow-up LFTs are mildly worse Differential including but not limited to: Hepatic congestion, gallbladder dysfunction, hepatitis, other. Of note, negative hepatitis and HIV testing 12/20/2023 Order right upper quadrant ultrasound Hypokalemia- Potassium 3.4 on admission Received 40 mEq p.o. from the ED, and received additional 40 mill equivalents p.o. on admission to medicine To receive potassium chloride total of 10 mEq IV riders x 4. Follow laboratory serially as noted Resident Activity Tracking Resident Involvement: Resident Care Provided Care Provided: Adult [facility] Medicine
[2024-06-28 20:27] LABS: Troponin I High Sensitivity 12.6 pg/ml (0-14)
[2024-06-28] MEDS ORDERED: MAGNESIUM SULFATE / WTR 40 GM/1,000 ML BAG IV SCH (22:30)
[2024-06-28] MEDS ORDERED: LACTATED RINGER'S 1,000 ML IV SCH (22:30)
[2024-06-28] MEDS: ACETAMINOPHEN 325 MG TAB PO PRN (22:53)
[2024-06-28] MEDS: POTASSIUM CHLORIDE / WTR 10 MEQ/100 ML PLCT IV SCH (23:07)
--- OUTSIDE RECORDS SUMMARY | 2024-06-28 23:47 | External Medical Summary | Summary of Care ---
Author Name Unknown Organization [facility] Address [address] [place] [address] Phone [phone] Care Team Providers Care Hem Inspector Name Role Phone Ghazala Fuchs DO Primary Care Provider [phone] Reason for Visit * Reason Onset Date Comments Hospital Follow-Up 06/27/2024 [facility] Encounter Details Date Type Department Care Team (Late st Contact Info) Description 06/27/2024 Telephone Family Practice [facility] [address] [place] [address] Ghazala Fuchs DO [address] [place] [address] Hospital Follow-Up ([facility]) Allergies Active Allergy Reactions Criticality Noted Date Comments Aspirin Nausea/vomiting 11/30/2000 hallucinations Cephalexin 12/07/2023 Widespread rash Metformin Rash 04/21/2013 Neomycin Allergy test positive 06/09/2012 documented as of this encounter (statuses as of 06/27/2024) Medications Medication Sig Dispensed Refills Start Date End Date Status Albuterol Sulfate HFA 108 (90 Base) MCG/ACT Inhalation Aerosol SolutionIndications :Allergic rhinitis Use two puffs every four hours as needed for wheezing 6.7 g 3 11/25/2022 Active methylPREDNISolone 4 MG Oral Tablet Therapy Pack (Medrol Dosepack) follow package directions 21 Tablet 06/29/2023 Active Additional Information Patient not taking.Reported on 10/16/2023 Magic Mouthwash (Lidocaine-Benadryl -Nystatin) oral solution Swish and spit 15 mL in the morning and 15 mL at noon and 15 mL before bedtime. 300 mL 1 07/01/2023 Active Betamethasone Dipropionate 0.05 % External Cream (Diprosone)Indicati ons:Rash and nonspecific skin eruption apply sparingly twice daily to affected rash 45 g 3 09/26/2023 Active Benzonatate 100 MG Oral CapsuleIndications: Bronchitis, complicated Take 1 Capsule by mouth 3 times a day as needed for Cough. 30 Capsule 1 10/16/2023 Active Amoxicillin 875 MG Oral TabletIndications:B ronchitis, complicated Take 1 Tablet by mouth in the morning and 1 Tablet before bedtime. 14 Tablet 12/30/2023 Active Sertraline HCl 100 MG Oral Tablet (Zoloft)Indications :Post depression TAKE 1 TABLET BY MOUTH IN THE MORNING 90 Tablet 2 05/30/2024 Active documented as of this encounter (statuses as of 06/27/2024) Active Problems Problem Noted Date Diagnosed Date Asthma, mild intermittent 12/07/2023 Overview: As kid mostly. 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/29/2023 Anxiety 11/19/2006 Estimated Date of Delivery Comme nts Yes 07/08/2024 documented as of this encounter (statuses as of 06/27/2024) Resolved Problems Problem Noted Date Diagnosed Date Resolved Date Other general counseling and advice for contraceptive management 05/01/2003 10/14/2018 documented as of this encounter (statuses as of 06/27/2024) Immunizations Name Administration Dates Next Due DT - Diptheria/Tetanus (PEDS) 07/11/1991 ,12/13/1987,02/01/1987,1986,1986 Haemophilius B (HIB), unspecified 06/09/1988 Hepatitis B, 0-19 yrs 01/12/2000 Mumps Vaccine 05/30/1993,03/06/1988 OPV - Polio Virus Vaccine (Oral) 04/09/1987,10/15,1986 PPD 03/31/2016,06/03/2015,05/23/2015 Rubella Vaccine 05/30/1993,08/30/1987 Seasonal Influenza, Quadriva lent, No Preserve, IM 07/16/2020,08/30/2019,08/29/2018 Seasonal Influenza, Quadriva lent, No Preserve, Peds 07/30/2017 Seasonal Influenza, Split, I IV3, With Preserve, Inj 08/10/2016,07/16/2015,09/05/2010 TDAP, Age 7 and older, IM (Adacel) 03/15/2010 documented as of this encounter Social History Tobacco Use Types Packs/Day Years Used Date Smoking Tobacco: Former Cigarettes 0.3 6 0 06/02/2002 - 06/02/2008 Smokeless Tobacco: Never Comments:mothers smokes at h ome Alcohol Use Standard Drinks/Week Comments Yes 0 (1 standard drink = 0.6 oz pur e alcohol) occ PHQ-2 Answer Date Recorded PHQ-2 Score 0 10/20/2019 Hunger Vital Sign Answer Date Recorded Within the past 12 months, y ou worried that your food would run out before you got the money to buy more. Never true 10/15/20 23 Within the past 12 months, t he food you bought just didn't last and you didn't have money to get more. Never true 10/15/2023 [place] Depression Scale Answer Date Recorded [place] Depression Scale Total 11 05/07/2022 The thought of harming myself has occurred to me . Never 05/07/2022 Childcare Answer Date Recorded Do you feel overwhelmed with taking care of a child, family member or friend? No 10/15/2023 Does your family need help f inding childcare? (Household - for ages 0-17 years) Not on file 10/15/2023 Clothing Answer Date Recorded Have you been unable to get clothing when it was really needed? No 10/15/2023 Is your family able to get c lothes or diapers when needed? (Household - for ages 0-17 years) Not on file 10/15/2023 Personal Safety Answer Date Recorded Do you feel unsafe or have concerns for your saf ety? No 10/15/2023 Do you have concerns for you r family's safety? (Household - for ages 0-17 years) Not on file 10/15/2023 Utilities Answer Date Recorded Do you have trouble paying y our heating, water, or electric bill? No 10/15/2023 Is your family able to pay t he heat, water, or electric bill? (Household - for ages 0-17 years) Not on file 10/15/2023 Does your family have access to good internet? (Household - for ages 0-17 years) Not on file 10/15/2023 Employment Status Answer Date Recorded Are you unemployed or without regular income? No 10/15/2023 Does the household have a re gular source of income? (Household - for ages 0-17 years) Not on file 10/15/2023 Social Connections Answer Date Recorded How often do you feel lonely or isolated from those around you? Sometimes 10/15/2023 Financial Resource Strain Answer Date R ecorded Do you have any trouble payi ng for your medications, or do you think you might in the future? No 10/15/2023 Does your family have troubl e paying for medicine? (Household - for ages 0-17 years) Not on file 10/15/2023 Transportation Needs Answer Date Record ed READ ONLY Do you have troubl e getting a ride to medical visits or work? Never True 10/15/2023 Does your family have a hard time getting a ride to doctors visits? (Household - for ages 0-17 years) Not on file 10/15/2023 Has lack of transportation k ept you from medical appointments, meetings, work, or from getting things needed for daily living? Check all that apply. (Adult - for ages 18 years and over) Not on file 10/15/2023 Do you (or your family) have trouble finding or paying for a ride (transportation)? (Household - for ages 0-17 years) Not on file 10/15/2023 Housing Stability Answer Date Recorded Do you currently live in a s helter or have no steady place to sleep at night? No 10/15/2023 READ ONLY Do you think you a re at risk of becoming homeless? No 10/15/2023 Does your family worry about paying for your home or becoming homeless? (Household - for ages 0-17 years) Not on file 1 12/16/2022 Are you homeless or worried that you might be in the future? (Adult - for ages 18 years and over) Not on file Are you (or your family) audie eless or worried that you might be in the future? (Household - for ages 0-17 years) Not on file Food Insecurity Answer Date Recorded Do you need food for this week? No 10/15/2023 Are you able to get enough f ood for your family? (Household - for ages 0-17 years) Not on file 10/15/2023 Does your family need food t his week? (Household - for ages 0-17 years) Not on file 10/15/2023 Do you always have enough fo od for your family? (Household - for ages 0-17 years) Not on file 10/15/2023 Estimated Date of Delivery Comme nts Yes 07/08/2024 Sex and Gender Information Value Date Recorded Sex Assigned at Female 10/15/2023 12:02 PM EST Gender Identity Female 10/15/2023 12:02 PM EST Sexual Orientation Straight 10/15/2023 12 :02 PM EST Job Start Date Occupation Industry Not on file Not on file Not on file documented as of this encounter Miscellaneous Notes * Telephone Encounter - Nora Sow RN - 06/27/2024 7:43 AM EDT Transitions of Care Note Reason for Referral: Recent Admission Phone visit for follow up: Inpatient Hospitalization Admitted to: [facility], Date: 06/23/2024 Discharged to: Home, Date: 06/25/2024 [facility] call not indicated due to patient admitted for with follow-up with [facility] and PCP only as needed. documented in this encounter Plan of Treatment Health Maintenance Due Date Last Done Comments Pneumococcal Vaccine: Pediatrics (0 to 5 Years) and At-Risk Patients (6 to 64 Years) (1 of 2 - PCV) 1992 HPV/Co-Test 2016 DTaP,Tdap,and Td Vaccines (8 - Td or Tdap) 03/15/2020 03/15/2010, 01/12/2000, 07/11/1991, Additional history exists Depression Monitoring 10/20/2020 10/20/2019 Cervical Cancer Screening 10/14/2021 Pap Smear 10/14/2021 10/14/2018, 12/17, 09/26/2010, Additional history exists COVID-19 Vaccine ( season) 2023 *SPIROMETRY ONCE FOR ASTHMA-ADULT 12/10/2023 Influenza Vaccine (FLU shot) (#1) 2024 08/30/2023, 07/16/2020, 08/30/2019, Additional history exists Hepatitis B Vaccine Completed 12/29/2000, 02/25/2000, 01/12/2000, Additional history exists MENINGOCOCCAL (MENACTRA/MENVEO) Aged Out 06/18/2004 No longer eligible based on patient's age to complete this topic HPV (Gardasil) Vaccine Aged Out No lo nger eligible based on patient's age to complete this topic documented as of this encounter Medical Devices Not on filedocumented as of this encounter Care Teams Hem Inspector Relationship Specialty Start Date End Date Ghazala Fuchs DO [address] [facility] [place] [id number] PCP - General Family Medicine 01/04/19 documented as of this encounter
[2024-06-29 01:04] LABS: Hematocrit (blood only) 32.8 % (37.0-47.0); Hemoglobin 10.9 g/dl (12.0-16.0); Mean Corpuscular Hemoglobin 29.9 pg (25.0-34.0); Mean Corpuscular Hgb Conc 33.2 g/dL (32.0-36.0); Mean Corpuscular Volume 90.1 fL (80.0-100.0); Mean Platelet Volume 9.1 fL (9.4-12.4); Nucleated RBC # (auto) 0.04 K/uL (0.00-0.12); Nucleated RBC % (auto) 0.4 %; Platelet Count 387 K/uL (130-400); RDW Coefficient of Variation 14.1 % (11.5-14.5); RDW Standard Deviation 46.7 fL (36.4-46.3); Red Blood Count 3.64 M/uL (4.20-5.40); White Blood Count 9.58 K/ul (4.8-10.8)
[2024-06-29 01:21] LABS: Albumin Globulin Ratio 1.2 (0.9-2); Albumin Level 3.5 gm/dl (3.4-5.0); BUN Creatinine Ratio 17.3 (10-20); Bilirubin,Total 0.6 mg/dl (0.2-1.0); Calcium 8.1 mg/dl (8.6-10.3); Creatinine Clr Calc Pharmacy 154.9 ml/min; Est GFR (African American) 140.5 ml/min; Est GFR (Non-African American) 121.2 ml/min; Globulin 2.9 gm/dl (2.5-4.0); Potassium 3.2 mmol/L (3.5-5.1); Total Protein 6.4 gm/dl (6.0-8.3)
--- NOTE | 2024-06-29 06:19 | Billing Data ---
Date of Service June 29, 2024 Coding Level of Care Code 47794 INT INP/OBS CARE
--- NOTE | 2024-06-29 06:52 | Obstetrical Progress Note ---
Date of Service June 29, 2024 Assessment & Plan (1) Preeclampsia, severe: (2) state: (3) Pulmonary edema: Plan Has had significant response to lasix with considerable diuresis. Bps are running in the 130-140s/80s-90s. Our goal would be to keep pressures less than 140/90 if possible. May require antihypertensive. Choice likely affected by results of echo she will be having today. Pulse is improved in the 70-80s (had been as low as 47 in the ED). Generally, as OBs, we would start labetalol or long acting nifedipine as our first line. Her Mag will be 24 hours at around 7pm so can be discontinued at that time. There is no data to support continuing beyond 24 hours of treatment. LFTs are still slightly bumping, but less than previous and both <100 last night. Suspect they are going to stabilize/drop soon. Less hyperreflexive today. Still with some RUQ tenderness that may be from the bump of lfts and/or the perihepatic fluid noted on CT. Would continue to monitor that. continued mohr--has not gone away with tylenol and ibuprofen. Still ok for ibuprofen but might want to be cautious with tylenol given lfts. Can consider narcotic to see if can break the mohr. No issues from post c/s standpoint. Overall patient looking better today then yesterday. Really appreciate hospitalist help in managing. Will continue to follow closely with you. Admission and Anticipated Discharge Date Admission Date: June 28, 2024 Subjective Patient resting in bed. Baby was very fussy last night so did not get alot of rest. continues to have a mohr despite tylenol and ibuprofen, notes now a 2-3/10. notes he thinks it worsens when her pressure gets a little higher. She continues to note some discomfort in the right lower chest/ruq with a deep breath, may be a bit better. Continues to put out copious amounts of urine from her de guzman. bps overnight 130-140s/80s-90s. LFTs at [place] were slightly bumped more but not as much as previous. 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 Physical Exam Constitutional: WD/WN, vitals as above Respiratory: normal respiratory effort, lungs clear to auscultation Cardiovascular: Rate/Rhythm: regular rate and regular rhythm Extremities: + edema (tr, much improved); no calf tenderness (notes that her bilateral lateral thighs feel "bruised") Gastrointestinal (Abdomen): some tenderness to deep palpation of the ther ruq/liver. abd is soft, nd. incision c/d/i. Neurologic: dtrs +2/2, not quite as brisk as they were yesterday. Psychiatric: A+Ox3, euthymic affect Results & Data Vital Signs (Past 12 Hours) Vital Signs Temp Pulse Pulse Resp BP BP Pulse Ox 06/29/24 06:47 81 06/29/24 06:45 149/95 H 06/29/24 06:42 91 H 12 93 06/29/24 06:33 87 17 88 L 06/29/24 06:30 144/90 H 06/29/24 06:30 144/90 H 06/29/24 06:24 82 18 89 L 06/29/24 06:21 80 19 90 06/29/24 06:15 139/91 06/29/24 06:03 80 19 91 06/29/24 06:00 143/83 H 06/29/24 05:39 80 19 90 06/29/24 05:30 76 18 90 06/29/24 05:21 78 18 90 06/29/24 05:00 145/89 H 06/29/24 04:45 135/87 06/29/24 04:45 135/87 06/29/24 04:45 135/87 06/29/24 04:42 82 19 92 06/29/24 04:30 77 17 92 06/29/24 04:15 72 21 92 06/29/24 04:15 138/88 06/29/24 04:15 138/88 06/29/24 04:15 138/88 06/29/24 04:00 75 20 92 06/29/24 04:00 143/86 H 06/29/24 04:00 143/86 H 06/29/24 04:00 36.6 C 06/29/24 03:45 139/89 06/29/24 03:36 72 19 92 06/29/24 03:30 68 20 93 06/29/24 03:30 141/94 H 06/29/24 03:24 69 20 92 06/29/24 03:15 144/94 H 06/29/24 03:12 85 23 95 08/15/24 03:03 80 15 97 06/29/24 03:00 132/87 06/29/24 03:00 132/87 06/29/24 02:51 84 23 94 06/29/24 02:48 83 17 95 06/29/24 02:46 120/99 06/29/24 02:46 120/99 06/29/24 02:33 79 23 96 06/29/24 02:30 132/86 06/29/24 02:30 132/86 06/29/24 02:30 132/86 06/29/24 02:30 132/86 06/29/24 02:30 132/86 06/29/24 02:27 79 18 97 06/29/24 02:15 129/90 06/29/24 02:15 129/90 06/29/24 02:06 83 17 95 06/29/24 02:03 81 13 96 06/29/24 01:45 132/84 06/29/24 01:42 84 12 94 06/29/24 01:30 135/87 06/29/24 01:30 135/87 06/29/24 01:09 76 23 91 06/29/24 01:00 134/88 06/29/24 01:00 134/88 06/29/24 01:00 134/88 06/29/24 00:57 76 22 92 06/29/24 00:48 78 19 91 06/29/24 00:45 136/88 06/29/24 00:30 136/96 06/29/24 00:30 136/96 06/29/24 00:30 136/96 06/29/24 00:24 75 22 91 06/29/24 00:15 71 25 H 91 06/29/24 00:15 134/83 06/29/24 00:15 134/83 06/29/24 00:15 134/83 06/29/24 00:00 132/85 06/29/24 00:00 132/85 06/29/24 00:00 71 22 90 06/28/24 23:50 84 06/28/24 23:45 132/86 06/28/24 23:45 72 22 91 06/28/24 23:39 69 23 90 06/28/24 23:30 131/88 06/28/24 23:27 67 23 91 06/28/24 23:20 131/93 06/28/24 23:20 131/93 06/28/24 23:20 36.5 C 63 24 131/93 92 06/28/24 23:15 133/92 06/28/24 23:09 71 21 96 06/28/24 23:00 128/90 06/28/24 22:57 81 14 96 06/28/24 22:45 75 14 98 06/28/24 22:36 75 20 96 06/28/24 22:15 71 14 97 06/28/24 22:15 135/94 06/28/24 22:15 135/94 06/28/24 22:00 131/91 06/28/24 22:00 80 15 96 06/28/24 21:51 70 17 96 06/28/24 21:45 128/92 06/28/24 21:42 72 13 94 06/28/24 21:33 67 14 98 06/28/24 21:30 63 06/28/24 21:30 142/93 H 06/28/24 21:04 158/99 H 06/28/24 21:04 158/99 H 06/28/24 21:03 95 06/28/24 20:16 71 141/96 H 06/28/24 20:15 68 98 06/28/24 20:11 72 145/101 H 06/28/24 20:10 82 99 06/28/24 20:06 69 141/94 H 06/28/24 20:05 66 98 06/28/24 20:01 77 139/91 06/28/24 20:00 74 99 06/28/24 19:56 68 141/93 H 06/28/24 19:55 70 99 06/28/24 19:51 69 146/98 H 06/28/24 19:50 72 99 06/28/24 19:46 68 146/99 H 06/28/24 19:45 70 98 06/28/24 19:41 63 157/94 H 06/28/24 19:40 18 06/28/24 19:40 67 99 06/28/24 19:36 75 144/90 H 06/28/24 19:35 67 99 06/28/24 19:31 68 148/94 H 06/28/24 19:30 36.4 C L 72 20 99 06/28/24 19:26 76 154/100 H 06/28/24 19:25 82 100 06/28/24 19:21 73 143/85 H 06/28/24 19:20 91 H 99 06/28/24 19:16 80 154/100 H 06/28/24 19:15 81 99 06/28/24 19:11 69 142/90 H 06/28/24 19:10 71 99 06/28/24 19:06 75 146/100 H 06/28/24 19:05 85 97 06/28/24 19:01 73 145/93 H 06/28/24 19:00 63 99 06/28/24 18:56 68 150/90 H 06/28/24 18:55 73 99 06/28/24 18:51 63 153/92 H O2 Del Method 06/29/24 06:47 06/29/24 06:45 06/29/24 06:42 06/29/24 06:33 06/29/24 06:30 06/29/24 06:30 06/29/24 06:24 06/29/24 06:21 06/29/24 06:15 06/29/24 06:03 06/29/24 06:00 06/29/24 05:39 06/29/24 05:30 06/29/24 05:21 06/29/24 05:00 06/29/24 04:45 06/29/24 04:45 06/29/24 04:45 06/29/24 04:42 06/29/24 04:30 06/29/24 04:15 06/29/24 04:15 06/29/24 04:15 06/29/24 04:15 06/29/24 04:00 06/29/24 04:00 06/29/24 04:00 06/29/24 04:00 06/29/24 03:45 06/29/24 03:36 06/29/24 03:30 06/29/24 03:30 06/29/24 03:24 06/29/24 03:15 06/29/24 03:12 06/29/24 03:03 06/29/24 03:00 06/29/24 03:00 06/29/24 02:51 06/29/24 02:48 06/29/24 02:46 06/29/24 02:46 06/29/24 02:33 06/29/24 02:30 06/29/24 02:30 06/29/24 02:30 06/29/24 02:30 06/29/24 02:30 06/29/24 02:27 06/29/24 02:15 06/29/24 02:15 06/29/24 02:06 06/29/24 02:03 06/29/24 01:45 06/29/24 01:42 06/29/24 01:30 06/29/24 01:30 06/29/24 01:09 06/29/24 01:00 06/29/24 01:00 06/29/24 01:00 06/29/24 00:57 06/29/24 00:48 06/29/24 00:45 06/29/24 00:30 06/29/24 00:30 06/29/24 00:30 06/29/24 00:24 06/29/24 00:15 06/29/24 00:15 06/29/24 00:15 06/29/24 00:15 06/29/24 00:00 06/29/24 00:00 06/29/24 00:00 06/28/24 23:50 06/28/24 23:45 06/28/24 23:45 06/28/24 23:39 06/28/24 23:30 06/28/24 23:27 06/28/24 23:20 06/28/24 23:20 06/28/24 23:20 Room Air 06/28/24 23:15 06/28/24 23:09 06/28/24 23:00 06/28/24 22:57 06/28/24 22:45 06/28/24 22:36 06/28/24 22:15 06/28/24 22:15 06/28/24 22:15 06/28/24 22:00 06/28/24 22:00 06/28/24 21:51 06/28/24 21:45 06/28/24 21:42 06/28/24 21:33 06/28/24 21:30 06/28/24 21:30 06/28/24 21:04 06/28/24 21:04 06/28/24 21:03 06/28/24 20:16 06/28/24 20:15 06/28/24 20:11 06/28/24 20:10 06/28/24 20:06 06/28/24 20:05 06/28/24 20:01 06/28/24 20:00 06/28/24 19:56 06/28/24 19:55 06/28/24 19:51 06/28/24 19:50 06/28/24 19:46 06/28/24 19:45 06/28/24 19:41 06/28/24 19:40 06/28/24 19:40 06/28/24 19:36 06/28/24 19:35 06/28/24 19:31 06/28/24 19:30 06/28/24 19:26 06/28/24 19:25 06/28/24 19:21 06/28/24 19:20 06/28/24 19:16 06/28/24 19:15 06/28/24 19:11 06/28/24 19:10 06/28/24 19:06 06/28/24 19:05 06/28/24 19:01 06/28/24 19:00 06/28/24 18:56 06/28/24 18:55 06/28/24 18:51 PG Care Time/CCT Total # of Minutes Spent Total Time Spent with Patient: Total time spent is greater than 50% in coordination of care (as documented) at patient's floor/unit and/or counseling patient: Coding Level of Care Code 56612 SUB INP/OBS CARE 1/25MIN Diagnoses Preeclampsia, severe O14.10 state Z39.2 Pulmonary edema J81.1
[2024-06-29 07:41] LABS: Hematocrit (blood only) 32.2 % (37.0-47.0); Hemoglobin 10.8 g/dl (12.0-16.0); Mean Corpuscular Hemoglobin 29.8 pg (25.0-34.0); Mean Corpuscular Hgb Conc 33.5 g/dL (32.0-36.0); Mean Corpuscular Volume 88.7 fL (80.0-100.0); Mean Platelet Volume 9.1 fL (9.4-12.4); Nucleated RBC # (auto) 0.03 K/uL (0.00-0.12); Nucleated RBC % (auto) 0.3 %; Platelet Count 408 K/uL (130-400); RDW Coefficient of Variation 13.8 % (11.5-14.5); RDW Standard Deviation 45.1 fL (36.4-46.3); Red Blood Count 3.63 M/uL (4.20-5.40); White Blood Count 9.52 K/ul (4.8-10.8)
[2024-06-29 08:00] LABS: Albumin Globulin Ratio 1.2 (0.9-2); Albumin Level 3.4 gm/dl (3.4-5.0); BUN Creatinine Ratio 21.7 (10-20); Bilirubin,Total 0.6 mg/dl (0.2-1.0); Calcium 7.3 mg/dl (8.6-10.3); Creatinine Clr Calc Pharmacy 170.8 ml/min; Est GFR (African American) 146.3 ml/min; Est GFR (Non-African American) 126.2 ml/min; Globulin 2.8 gm/dl (2.5-4.0); Potassium 3.2 mmol/L (3.5-5.1); Total Protein 6.2 gm/dl (6.0-8.3)
[2024-06-29] MEDS: FUROSEMIDE 40 MG/4 ML VIAL IV SCH (08:21)
--- NOTE | 2024-06-29 09:47 | Ultrasound Report ---
ABDOMINAL ULTRASOUND, RIGHT UPPER QUADRANT HISTORY: Acutely elevated LFTs elevated LFTs, pre-eclampsia. COMPARISON: Chest radiograph of same day, CT 05/13/2024 FINDINGS: Pancreas: The pancreas demonstrates a normal echotexture. Liver: Unremarkable. Gallbladder: Borderline gallbladder wall thickening measures up to approximately 3 mm. No pericholecy stic fluid. No gallstones. CBD: 4 mm Right kidney: No hydronephrosis. Periportal lymph nodes measure up to 1 cm. Right pleural effusion. IMPRESSION: 1. Nonspecific borderline gallbladder wall thickening which may be secondary to the patient's fluid o verload. No cholelithiasis identified. 2. No biliary ductal dilation. 3. Right pleural effusion incidentally noted. ACT 112: Negative or not required by law. Electronically signed by: Otoniel Willis M.D. 06/29/2024 9:45 AM
--- NOTE | 2024-06-29 10:16 | Cardiology Consultation ---
Date of Consultation June 29, 2024 Assessment & Plan (1) Preeclampsia, severe: (2) Pulmonary edema: (3) Elevated BP without diagnosis of hypertension: Plan Mrs. Gan is a 39-year-old female with a history of PSVT, PACs, Nephrolithiasis, Mild Cervical Spinal Stenosis, GERD, and Asthma who was re- admitted to [facility] on 06/28/24 with Pre-eclampsia, uncontrolled Hypertension and Pulmonary Edema. Patient underwent an Emergency delivery on 06/23/24 due to pre-eclamp adin. She was discharged from the hospital on 06/27/24 but after leaving the hospital she felt anxious and described shortness of breath, especially if she tried to lie down and rest -- she had orthopnea. Because she was unable to take a full breath and she felt very short of breath she came back into the emergency room and was noted to have an elevated blood pressure of 180/110, +1 proteinuria, she was very edematous, pulmonary edema on chest x-ray and CTA of the chest, and her BNP was elevated at 563 pg/mL. Her high sensitivity troponin I levels are normal at 11.6 pg/mL and 12.6 pg/mL. Patient was subsequently admitted under the diagnoses of preeclampsia and pulmonary edema. She is receiving IV fluids at a slow rate, IV magnesium sulfate drip, and she is diuresing briskly with IV Lasix 40 mg b.i.d.. Thus far she has a negative fluid balance of close to 9 liters, and her weight is decreasing. At this point, she is feeling much less short of breath. She still slept last night with the head of the bed elevated, but not necessarily because of orthopnea. She complains of a mild headache at the present time, visual disturbance, and soreness across her upper abdomen. Patient has not had any classic angina pectoris, symptoms suggestive of dysrhythmia, nor has she had any focal neurologic symptoms suggestive of stroke or mini stroke. Patient's blood pressure has improved since she came in the hospital, but she is still hypertensive at times. Blood pressure this morning has ranged between 134/91 to 150/90. Echocardiogram was performed this morning and shows normal LV systolic function, LVEF 60%, a degree of concentric LVH is present. We reviewed the patient's laboratory studies including her negative cardiac enzymes, elevated BNP, hypokalemia, and her elevated ALT, AST, and alkaline phosphatase. We reviewed her echocardiogram in detail, and I have reassured the patient that her heart function is normal. She continues to diurese very briskly, her weight is declining, and her blood pressures are gradually improving. We discussed the slight increase in the future cardiovascular risk after having been diagnosed preeclampsia. We discussed her cardiac risk fac tors, and we will plan on doing a fasting lipid panel as an outpatient. Recommend the followin. Continue magnesium sulfate drip. 2. Continue to diurese for the time being. 3. Begin Nifedipine 10 mg every 8 hours, hold for SBP < or = 110 mmHg. We will plan on discharging her on Nifedipine ER at the appropriate dose. 4. May continue IV Hydralazine as needed for hypertension. 5. Monitor daily body weights, I&Os, and maintain a low-sodium diet. 6. Recommend a repeat Echocardiogram in 3-6 months to re-evaluate LVH. We will continue to follow her along while hospitalized. We will plan on seeing her in the office 1-2 weeks after discharge to re-evaluate her blood pressure and volume status. Patient and her agree with this plan. All their questions were answered to their satisfaction. I discussed this case with Dr. Urias also met with the patient. Supervising Physician Co-Signing Physician Notes Patient seen and examined with Mr. Davis. Her and at the bedside. Agree with his assessment and plan. Fortunately, her echocardiogram notes normal left systolic function with borderl ine LVH. Will repeat an echocardiogram in 3 to 6 months. Frequent blood pressure checks as an outpatient. Follow-up in 1 to 2 weeks as an outpatient. History of Present Illness Reason for Consultation: -- Pre-eclampsia. -- Pulmonary edema. Requesting Physician: Neisha Campos MD, FACOG Attending Physician: Raudel Urias MD History of Present Illness Mrs. Gan is a 39-year-old female with a history of PSVT, PACs, Nephrolithiasis, Mild Cervical Spinal Stenosis, GERD, and Asthma who had an Emergency delivery on 06/23/24 due to pre-eclampsia. She was d ischarged from the hospital on 06/27/24 but after leaving the hospital she felt anxious and described shortness of breath, especially if she tried to lie down and rest. Because she was unable to take a full breath and she felt very short of breath she came back into the emergency room and was noted to have an elevated blood pressure of 180/110, +1 proteinuria, she was very edematous, pulmonary edema on chest x-ray and CTA of the chest, and her BNP was elevated at 563 pg/mL. Her high sensitivity troponin I levels are normal at 11.6 pg/mL and 12.6 pg/mL. Patient was subsequently admitted under the diagnoses of preeclampsia and pulmonary edema. She is receiving IV fluids at a slow rate, IV magnesium sulfate drip, and she is diuresing briskly with IV Lasix 40 mg b.i.d.. Thus far she has a negative fluid balance of close to 9 liters, and her weight is decreasing. At this point, she is feeling much less short of breath. She still slept last night with the head of the bed elevated, but not necessarily because of orthopnea. She complains of a mild headache at the present time, visual disturbance, and soreness across her upper abdomen. Patient specifically denies any chest pain, heaviness, tightness, pressure, or discomfort. She denies any neck, jaw, back, or arm pain. She denies any shortness of breath currently. Her orthopnea has resolved. She has not had any palpitations, syncope, or near- syncope. Patient's blood pressure has improved since she came in the hospital, but she is still hypertensive at times. Blood pressure this morning has ranged between 134/91 to 150/90. Echocardiogram was performed this morning and shows normal LV systolic function, LVEF 60%, a degree of concentric LVH is present. Allergies Allergy/AdvReac Type Severity Reaction Status Date / Time cephalexin [From Keflex] Allergy Intermediate Rash Verified 06/28/24 16:48 metformin Allergy Mild Rash Verified 06/28/24 16:48 neomycin Allergy Mild Rash Verified 06/28/24 16:48 nickel Allergy Mild cellulitus Verified 06/28/24 16:48 type rash polymyxin B Allergy Mild Rash Verified 06/28/24 16:48 aspirin AdvReac Mild Fever Verified 06/28/24 16:48 Home Medications Medication Instructions Recorded Confirmed Type albuterol sulfate 90 mcg/actuation 2 puff inhalation QID PRN Wheezing 03/08/23 06/28/24 History aerosol inhaler sertraline 100 mg tablet 100 mg PO QAM 03/08/23 06/28/24 History hydrocortisone 2.5 % topical cream 1 applic CO DAILY PRN hemorrhoids 05/01/24 06/28/24 Rx with perineal applicator #30 grams (Anusol-HC) ondansetron 4 mg disintegrating 4 mg PO Q8H PRN nausea and 05/11/24 06/28/24 Rx tablet vomiting #20 tabs breast pump #1 ea 06/15/24 06/23/24 Rx docusate sodium 50 mg capsule 50 mg PO BID 06/22/24 06/28/24 History doxylamine succinate 25 mg tablet 12.5 mg PO HS PRN Morning Sickness 06/22/24 06/28/24 History pyridoxine (vitamin B6) 50 mg 50 mg PO BID 06/22/24 06/28/24 History tablet (Vitamin B-6) famotidine 20 mg tablet 20 mg PO BID 06/23/24 06/28/24 History oxycodone 5 mg tablet 5 mg PO Q6H PRN pain #20 tabs 06/26/24 06/28/24 Rx vitamins-iron fumarate 65 1 tab PO HS 06/28/24 06/28/24 History mg iron-folic acid 1 mg tablet Patient History Medical History GERD (gastroesophageal reflux disease) due to Hx of renal calculi resulting from in-vitro fertilization Scarlet fever as child Fifth disease as teen Hypothyroidism no longer on meds > resolved Stenosis, cervical spine "mild" Anxiety and depression Hx of supraventricular tachycardia remote paroxysmal SVT several years ago s/p unremarkable holter/stress testing, "released" by cardio/no further follow-up recommended Asthma "mild"/rare inhaler use Surgical History Hx of section History of surgery D&E 12/02/2020 History of dilatation and curettage Nausea and vomiting after administration of anesthetic agent History of esophagogastroduodenoscopy (EGD) History of gynecologic surgery egg retrieval History of hysterosalpingogram 2013 Hx of wisdom tooth extraction Family History Mother Family history of diabetes mellitus Heart disease Kidney disease Aunt Dyslipidemia Kidney disease Hypertension Grandmother Breast cancer Colorectal cancer Father Arthritis Grandmother (Maternal) Family hx of colon cancer Grandfather (Maternal) Family hx of colon cancer Other Depression Social History Smoking Status: Former smoker Tobacco Type: Cigarettes Smoking End Date: 5 years; Second Hand Exposure: No; Do You Dip or Chew Tobacco: No; Tobacco Cessation Education Requested by Patient: No Hx Alcohol Use: No Hx Substance Use: No Preferred Language: Burmese Communication Ability: Effective Manager Of Software Development Required: No Beliefs That Will Affect Care: None marital status: marital status details: Cliff Gan(40) [phone] Current Living Situation: Spouse and Family Current Living Situation Comment: lives at home with and children current occupational status: employed 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 Physical Exam Physical Exam: Blood pressure is 134/91, pulse 80 and regular, SpO2 is 95% on room air. GENERAL: Patient in no acute distress. HEENT: Head is atraumatic, normocephalic. EOM's intact. Facies symmetric. No perioral cyanosis. NECK: No JVD. JVP is not elevated. Carotid upstrokes are + 2 bilaterally. CHEST/LUNGS: Clear to auscultation throughout all lung buckner. No wheezes, rales, or crackles. CVS: S1 and S2 are regular without murmurs, gallops, or rubs. PMI is nonpalpable. No lifts, heaves, or thrills. No abdominal aortic or renal bruits. ABDOMINAL EXAM: Bowel sounds are present. Tender to palpation in midepigastrium. EXTREMITIES: No clubbing or cyanosis. Trace distal leg and bipedal edema. Intact radial pulses bilaterally. NEUROLOGIC EXAM: Patient is awake, alert, and oriented. Pleasant and cooperative. Answers questions appropriately. Speech is clear. CPA TAX: -- Sinus rhythm throughout. -- No arrhythmias identified. EKG 06/28/24: -- Normal sinus rhythm at 63 bpm. -- Normal tracing. Results & Data Vital Signs (Past 12 Hours) Vital Signs Temp Pulse Pulse Resp BP BP Pulse Ox 06/29/24 07:45 36.4 C L 79 17 150/90 H 95 06/29/24 07:30 36.5 C 82 18 139/92 92 06/29/24 06:47 81 06/29/24 06:45 149/95 H 06/29/24 06:42 91 H 12 93 06/29/24 06:33 87 17 88 L 06/29/24 06:30 144/90 H 06/29/24 06:30 144/90 H 06/29/24 06:24 82 18 89 L 06/29/24 06:21 80 19 90 06/29/24 06:15 139/91 06/29/24 06:03 80 19 91 06/29/24 06:00 143/83 H 06/29/24 05:39 80 19 90 06/29/24 05:30 76 18 90 06/29/24 05:21 78 18 90 06/29/24 05:00 145/89 H 06/29/24 04:45 135/87 06/29/24 04:45 135/87 06/29/24 04:45 135/87 06/29/24 04:42 82 19 92 06/29/24 04:30 77 17 92 06/29/24 04:15 72 21 92 06/29/24 04:15 138/88 06/29/24 04:15 138/88 06/29/24 04:15 138/88 06/29/24 04:00 75 20 92 06/29/24 04:00 143/86 H 06/29/24 04:00 143/86 H 06/29/24 04:00 36.6 C 06/29/24 03:45 139/89 06/29/24 03:36 72 19 92 06/29/24 03:30 68 20 93 06/29/24 03:30 141/94 H 06/29/24 03:24 69 20 92 06/29/24 03:15 144/94 H 06/29/24 03:12 85 23 95 06/29/24 03:03 80 15 97 06/29/24 03:00 132/87 06/29/24 03:00 132/87 06/29/24 02:51 84 23 94 06/29/24 02:48 83 17 95 06/29/24 02:46 120/99 06/29/24 02:46 120/99 06/29/24 02:33 79 23 96 06/29/24 02:30 132/86 06/29/24 02:30 132/86 06/29/24 02:30 132/86 06/29/24 02:30 132/86 06/29/24 02:30 132/86 06/29/24 02:27 79 18 97 06/29/24 02:15 129/90 06/29/24 02:15 129/90 06/29/24 02:06 83 17 95 06/29/24 02:03 81 13 96 06/29/24 01:45 132/84 06/29/24 01:42 84 12 94 06/29/24 01:30 135/87 06/29/24 01:30 135/87 06/29/24 01:09 76 23 91 06/29/24 01:00 134/88 06/29/24 01:00 134/88 06/29/24 01:00 134/88 06/29/24 00:57 76 22 92 06/29/24 00:48 78 19 91 06/29/24 00:45 136/88 06/29/24 00:30 136/96 06/29/24 00:30 136/96 06/29/24 00:30 136/96 06/29/24 00:24 75 22 91 06/29/24 00:15 71 25 H 91 06/29/24 00:15 134/83 06/29/24 00:15 134/83 06/29/24 00:15 134/83 06/29/24 00:00 132/85 06/29/24 00:00 132/85 06/29/24 00:00 71 22 90 06/28/24 23:50 84 06/28/24 23:45 132/86 06/28/24 23:45 72 22 91 06/28/24 23:39 69 23 90 06/28/24 23:30 131/88 06/28/24 23:27 67 23 91 06/28/24 23:20 131/93 06/28/24 23:20 131/93 06/28/24 23:20 36.5 C 63 24 131/93 92 06/28/24 23:15 133/92 06/28/24 23:09 71 21 96 06/28/24 23:00 128/90 06/28/24 22:57 81 14 96 06/28/24 22:45 75 14 98 06/28/24 22:36 75 20 96 06/28/24 22:15 71 14 97 06/28/24 22:15 135/94 06/28/24 22:15 135/94 O2 Del Method 06/29/24 07:45 Room Air 06/29/24 07:30 Room Air 06/29/24 06:47 06/29/24 06:45 06/29/24 06:42 06/29/24 06:33 06/29/24 06:30 06/29/24 06:30 06/29/24 06:24 06/29/24 06:21 06/29/24 06:15 06/29/24 06:03 06/29/24 06:00 06/29/24 05:39 06/29/24 05:30 06/29/24 05:21 06/29/24 05:00 06/29/24 04:45 06/29/24 04:45 06/29/24 04:45 06/29/24 04:42 06/29/24 04:30 06/29/24 04:15 06/29/24 04:15 06/29/24 04:15 06/29/24 04:15 06/29/24 04:00 06/29/24 04:00 06/29/24 04:00 06/29/24 04:00 06/29/24 03:45 06/29/24 03:36 06/29/24 03:30 06/29/24 03:30 06/29/24 03:24 06/29/24 03:15 06/29/24 03:12 06/29/24 03:03 06/29/24 03:00 06/29/24 03:00 06/29/24 02:51 06/29/24 02:48 06/29/24 02:46 06/29/24 02:46 06/29/24 02:33 06/29/24 02:30 06/29/24 02:30 06/29/24 02:30 06/29/24 02:30 06/29/24 02:30 06/29/24 02:27 06/29/24 02:15 06/29/24 02:15 06/29/24 02:06 06/29/24 02:03 06/29/24 01:45 06/29/24 01:42 06/29/24 01:30 06/29/24 01:30 06/29/24 01:09 06/29/24 01:00 06/29/24 01:00 06/29/24 01:00 06/29/24 00:57 06/29/24 00:48 06/29/24 00:45 06/29/24 00:30 06/29/24 00:30 06/29/24 00:30 06/29/24 00:24 06/29/24 00:15 06/29/24 00:15 06/29/24 00:15 06/29/24 00:15 06/29/24 00:00 06/29/24 00:00 06/29/24 00:00 06/28/24 23:50 06/28/24 23:45 06/28/24 23:45 06/28/24 23:39 06/28/24 23:30 06/28/24 23:27 06/28/24 23:20 06/28/24 23:20 06/28/24 23:20 Room Air 06/28/24 23:15 06/28/24 23:09 06/28/24 23:00 06/28/24 22:57 06/28/24 22:45 06/28/24 22:36 06/28/24 22:15 06/28/24 22:15 06/28/24 22:15 Laboratory Results Laboratory Results - last 24 hr 06/28/24 06/28/24 06/28/24 14:55 15:11 19:48 WBC 9.01 9.62 RBC 3.39 L 3.53 L Hgb 10.1 L 10.7 L Hct 31.3 L 32.2 L MCV 92.3 91.2 MCH 29.8 30.3 MCHC 32.3 33.2 RDW Std Deviation 48.1 H 47.0 H RDW Coeff of Aminta 14.3 14.2 Plt Count 344 370 MPV 9.2 L 9.1 L Immature Gran % (Auto) 1.9 2.0 Neut % (Auto) 70.9 68.4 Lymph % (Auto) 18.6 19.3 [place] % (Auto) 6.0 7.8 Eos % (Auto) 1.9 1.8 Baso % (Auto) 0.7 0.7 Neut # (Auto) 6.39 6.58 H Lymph # (Auto) 1.68 1.86 [place] # (Auto) 0.54 0.75 H Eos # (Auto) 0.17 0.17 Baso # (Auto) 0.06 0.07 Immature Gran # (Auto) 0.17 0.19 Absolute Nucleated RBC 0.02 0.05 Nucleated RBC % (auto) 0.2 0.5 PT 10.3 INR 0.9 APTT 25 PTT Ratio 0.9 Sodium 141 140 Potassium 3.4 L 3.1 L Chloride 107 104 Carbon Dioxide 26 26 Anion Gap 8 10 BUN 12 10 Creatinine 0.52 L 0.49 L Est Cr Clr Drug Dosing 155.3 164.8 Est GFR ( Amer) 140.5 143.2 Est GFR (Non-Af Amer) 121.2 123.6 BUN/Creatinine Ratio 23.1 H 20.4 H Glucose 76 79 Calcium 8.4 L 8.7 Magnesium (Sulf Ther) 3.8 L Total Bilirubin 0.5 0.5 AST 76 H 94 H ALT 65 H 78 H Alkaline Phosphatase 110 H 122 H Troponin I High Sens 11.6 12.6 B-Natriuretic Peptide 563 H Total Protein 5.9 L 6.3 Albumin 3.3 L 3.4 Globulin 2.6 2.9 Albumin/Globulin Ratio 1.3 1.2 Lipase 5 L Urine Color Dark Yellow Urine Appearance Clear Urine pH 6.5 Ur Specific [place] 1.025 Urine Protein 1+ H Urine Glucose (UA) Negative Urine Ketones Negative Urine Blood Negative Urine Nitrite Negative Urine Bilirubin Negative Urine Urobilinogen Negative Ur Leukocyte Esterase Trace H Urine WBC (Auto) 0-5 Urine RBC (Auto) 0-2 U Hyaline Cast (Auto) 0-2 U Epithel Cells (Auto) 0-2 Urine Bacteria (Auto) None Seen 06/29/24 06/29/24 00:29 06:56 WBC 9.58 9.52 RBC 3.64 L 3.63 L Hgb 10.9 L 10.8 L Hct 32.8 L 32.2 L MCV 90.1 88.7 MCH 29.9 29.8 MCHC 33.2 33.5 RDW Std Deviation 46.7 H 45.1 RDW Coeff of Aminta 14.1 13.8 Plt Count 387 408 H MPV 9.1 L 9.1 L Immature Gran % (Auto) Neut % (Auto) Lymph % (Auto) [place] % (Auto) Eos % (Auto) Baso % (Auto) Neut # (Auto) Lymph # (Auto) [place] # (Auto) Eos # (Auto) Baso # (Auto) Immature Gran # (Auto) Absolute Nucleated RBC 0.04 0.03 Nucleated RBC % (auto) 0.4 0.3 PT INR APTT PTT Ratio Sodium 139 138 Potassium 3.2 L 3.2 L Chloride 100 99 Carbon Dioxide 28 28 Anion Gap 11 11 BUN 9 10 Creatinine 0.52 L 0.46 L Est Cr Clr Drug Dosing 154.9 170.8 Est GFR ( Amer) 140.5 146.3 Est GFR (Non-Af Amer) 121.2 126.2 BUN/Creatinine Ratio 17.3 21.7 H Glucose 74 67 L Calcium 8.1 L 7.3 L Magnesium (Sulf Ther) Total Bilirubin 0.6 0.6 AST 99 H 94 H ALT 85 H 86 H Alkaline Phosphatase 122 H 119 H Troponin I High Sens B-Natriuretic Peptide Total Protein 6.4 6.2 Albumin 3.5 3.4 Globulin 2.9 2.8 Albumin/Globulin Ratio 1.2 1.2 Lipase Urine Color Urine Appearance Urine pH Ur Specific [place] Urine Protein Urine Glucose (UA) Urine Ketones Urine Blood Urine Nitrite Urine Bilirubin Urine Urobilinogen Ur Leukocyte Esterase Urine WBC (Auto) Urine RBC (Auto) U Hyaline Cast (Auto) U Epithel Cells (Auto) Urine Bacteria (Auto) Diagnostic Findings CTA CHEST 06/28/24: No pulmonary emboli are identified. There is no thoracic aortic dissection. There is borderline cardiomegaly. No pneumothorax is present. There are trace bilateral pleural effusions. Moderate lower lung predominant interlobular septal thickening is noted. There are mild groundglass opacities. Multiple subpleural nodular opacities measure up to 6 mm. No consolidation is identified to suggest pneumonia. There is trace perihepatic ascites. Mild shortening within the medina hepatis and along the falciform ligament is present. . IMPRESSION: 1. No pulmonary emboli identified. 2. Moderate interstitial pulmonary edema with trace bilateral pleural effusions. Scattered ground glass opacities and subpleural nodular densities favor alveolar pulmonary edema. Borderline cardiomegaly. A follow-up chest CT in 6 months to ensure resolution of the nodular densities is recommended. 3. Trace perihepatic ascites. Mild stranding within the upper abdomen. Findings suggest mild volume overload. CXR 06/28/24: Cardiac silhouette is enlarged. Reticular interstitial densities correspond with intralobular septal thickening on the same day CTA chest. Small pleural effusions and mild bibasilar densities, likely atelectatic. No pneumothorax. Bones appear intact. IMPRESSION: -- Interstitial pulmonary edema with small pleural effusions. CT SCAN HEAD 06/28/24: No acute intracranial hemorrhage, midline shift, intracranial mass, hydrocephalus, territorial ischemia or abnormal extra-axial collection. The calvarium is intact. The paranasal sinuses, mastoid air cells, and middle ear cavities are clear. IMPRESSION: -- No acute intracranial abnormality. Medications Administered Medication List Acetaminophen (Acetaminophen 325 Mg Tab) 650 mg PO Q4H PRN PRN Reason: Pain or Fever Stop: 07/28/24 22:15 Last Admin: 06/29/24 08:28 Dose: 650 mg Documented By: Admin: 06/29/24 03:04 Dose: 650 mg Documented By: Admin: 06/28/24 22:53 Dose: 650 mg Documented By: AURORA Furosemide (Furosemide 40 Mg/4 Ml Vial) 40 mg IV BID17 TERRY Stop: 07/29/24 08:59 Last Admin: 06/29/24 08:21 Dose: 40 mg Documented By: Ibuprofen (Ibuprofen 600 Mg Tab) 600 mg PO QID PRN PRN Reason: Pain Stop: 07/28/24 18:16 Last Admin: 06/29/24 07:33 Dose: 600 mg Documented By: Admin: 06/28/24 19:12 Dose: 600 mg Documented By: RB Discontinued Medications Furosemide (Furosemide 40 Mg/4 Ml Vial) 40 mg IV ONE ONE Stop: 06/28/24 16:49 Last Admin: 06/28/24 17:07 Dose: 40 mg Documented By: DAVID Furosemide (Furosemide 40 Mg/4 Ml Vial) 40 mg IV ONE ONE Stop: 06/28/24 20:00 Last Admin: 06/28/24 21:13 Dose: 40 mg Documented By: AURORA Hydralazine HCl (Hydralazine Hcl 20 Mg/Ml Vial) 10 mg IV NOW STA Stop: 06/28/24 15:19 Last Admin: 06/28/24 15:28 Dose: 10 mg Documented By: DAVID Magnesium Sulfate/Dextrose (Magnesium Sulfate / D5w) 1 gm in 100 mls @ 200 mls/hr IV Q30M TERRY Stop: 06/28/24 16:18 Last Infusion: 06/28/24 21:00 Dose: Infused Documented By: Admin: 06/28/24 17:06 Dose: 200 mls/hr Documented By: Infusion: 06/28/24 17:04 Dose: Infused Documented By: Admin: 06/28/24 15:30 Dose: 200 mls/hr Documented By: DAVID Sodium Chloride (Nss) 1,000 mls @ 100 mls/hr IV .Q10H TERRY Stop: 07/28/24 15:59 Last Infusion: 06/29/24 01:04 Dose: Infused Documented By: Admin: 06/28/24 17:15 Dose: 100 mls/hr Documented By: DAVID Acetaminophen (Ofirmev) 1,000 mg in 100 mls @ 400 mls/hr IV NOW STA Stop: 06/28/24 16:06 Last Infusion: 06/28/24 17:04 Dose: Infused Documented By: Admin: 06/28/24 16:22 Dose: 400 mls/hr Documented By: RUBIO Magnesium Sulfate (Magnesium Sulfate / Wtr) 40 gm in 1,000 mls @ 50 mls/hr IV .Q20H TERRY Stop: 07/28/24 16:59 Last Infusion: 06/28/24 19:10 Dose: 50 mls/hr Documented By: RB Co-signed By: RRMilton Infusion: 06/28/24 18:50 Dose: 150 mls/hr Documented By: RB Co-signed By: AEMartell Admin: 06/28/24 17:58 Dose: 50 mls/hr Documented By: RB Co-signed By: ANEL Lactated Ringer's (Lr) 1,000 mls @ 125 mls/hr IV .Q8H TERRY Stop: 07/28/24 16:59 Last Admin: 06/28/24 18:07 Dose: 125 mls/hr Documented By: RB Potassium Chloride (K Bill / Wtr) 10 meq in 100 mls @ 100 mls/hr IV Q1H TERRY Stop: 06/29/24 01:29 Last Infusion: 06/29/24 03:20 Dose: Infused Documented By: Admin: 06/29/24 02:05 Dose: 100 mls/hr Documented By: Infusion: 06/29/24 01:54 Dose: Infused Documented By: Admin: 06/29/24 00:54 Dose: 100 mls/hr Documented By: Infusion: 06/29/24 00:54 Dose: Infused Documented By: Admin: 06/28/24 23:54 Dose: 100 mls/hr Documented By: Infusion: 06/28/24 23:54 Dose: Infused Documented By: Admin: 06/28/24 23:07 Dose: 100 mls/hr Documented By: AURORA Ioversol (Optiray 320 125ml) 99 ml IV ONCE ONE Stop: 06/28/24 16:10 Last Admin: 06/28/24 16:09 Dose: 99 ml Documented By: PLFranca Labetalol HCl (Labetalol Hcl Iv 5 Mg/Ml 20ml) 10 mg IV NOW STA Stop: 06/28/24 14:54 Last Admin: 06/28/24 15:19 Dose: Not Given Documented By: MMN Magnesium Sulfate (Mag Sulfate 4gm Bolus From Bag) 2 gm IV ONE ONE Stop: 06/28/24 16:57 Last Admin: 06/28/24 19:15 Dose: 2 gm Documented By: RB Co-signed By: MAURY Ondansetron HCl (Ondansetron Inj 2 Mg/Ml 2 Ml Vial) Confirm Administered Dose 4 mg .ROUTE .STK-MED ONE Stop: 06/28/24 18:52 Last Admin: 06/28/24 18:54 Dose: 4 mg Documented By: RB Potassium Chloride (Potassium Chloride Crtab 20 Meq Tabcr) 40 meq PO NOW STA Stop: 06/28/24 16:49 Last Admin: 06/28/24 17:04 Dose: 40 meq Documented By: AVMaira Potassium Chloride (Potassium Chloride Crtab 20 Meq Tabcr) 40 meq PO NOW STA Stop: 06/28/24 20:42 Last Admin: 06/28/24 21:14 Dose: 40 meq Documented By: AURORA PG Care Time/CCT Total # of Minutes Spent Total Time Spent with Patient: Total time spent is greater than 50% in coordination of care (as documented) at patient's floor/unit and/or counseling patient:42 [place] [address] IN/OBS CONSULT LVL 4,60M Patient Type New Medical Decision Making Moderate Complexity Diagnoses Severe pre-eclampsia, antepartum O14.10 Trimester: unspecified trimester Acute pulmonary edema J81.0 Chronicity: acute Elevated BP without diagnosis of hypertension R03.0 Time Spent (min) 64 (1) Preeclampsia, severe Trimester: unspecified trimester Qualified Code(s): O14.10 - Severe pre- eclampsia, unspecified trimester (2) Pulmonary edema Chronicity: acute Qualified Code(s): J81.0 - Acute pulmonary edema
[2024-06-29] MEDS: NIFEdipine 10 MG CAP PO SCH (10:56)
--- NOTE | 2024-06-29 11:00 | XCELERA ---
[id number] \\[id number]
[2024-06-29] MEDS: SERTRALINE HCL 100 MG TABLET PO SCH (11:40)
[2024-06-29] MEDS: DOCUSATE SODIUM SYRUP 100 MG/10 ML UDC PO SCH (11:40)
[2024-06-29] MEDS: FAMOTIDINE 20 MG TAB PO SCH (11:40)
[2024-06-29] MEDS: LACTATED RINGER'S 1,000 ML IV SCH (11:42)
--- NOTE | 2024-06-29 11:54 | Electrocardiogram Report ---
Test Reason : Blood Pressure : */* mmHG Vent. Rate : 50 BPM Atrial Rate : 50 BPM P-R Int : 134 ms QRS Dur : 74 ms QT Int : 442 ms P-R-T Axes : 50 52 47 degrees QTcB Int : 402 ms Sinus bradycardia Low voltage QRS Borderline ECG When compared with ECG of 03-Jan-2019 07:38, Vent. rate has decreased by 64 bpm QRS voltage has decreased T wave amplitude has increased in Anterior leads Confirmed by Raudel Urias ([id number]) on 06/29/2024 11:54:26 AM Referred By: REFERRED SELF Confirmed By: Raudel Urias
[2024-06-29] MEDS: DOCUSATE SODIUM SYRUP 20MG/5ML 480ML PO SCH (12:15)
--- NOTE | 2024-06-29 12:15 | Electrocardiogram Report ---
Test Reason : Blood Pressure : */* mmHG Vent. Rate : 63 BPM Atrial Rate : 63 BPM P-R Int : 158 ms QRS Dur : 78 ms QT Int : 442 ms P-R-T Axes : 68 67 50 degrees QTcB Int : 452 ms Normal sinus rhythm Normal ECG When compared with ECG of 28-Jun-2024 15:04, (unconfirmed) No significant change was found Confirmed by Raudel Urias ([id number]) on 06/29/2024 12:15:02 PM Referred By: REFERRED SELF Confirmed By: Raudel Urias
[2024-06-29] MEDS: MAGNESIUM SULFATE / WTR 40 GM/1,000 ML BAG IV SCH (12:19)
--- NOTE | 2024-06-29 13:30 | Medical Student Progress Note ---
Date of Service June 29, 2024 Assessment & Plan (1) Preeclampsia, severe: Trimester: unspecified trimester Qualified Code(s): O14.10 - Severe pre-eclampsia, unspecified trimester (2) Pulmonary edema: Chronicity: acute Qualified Code(s): J81.0 - Acute pulmonary edema (3) Elevated BP without diagnosis of hypertension: Plan Pt is a 39 yo female with recent delivery by repeat 06/23 presenting to the hospital due to SOB, chest pain, and elevated BP. Pulmonary edema - CXR on 06/28 showing interstitial pulmonary edema with small bilateral pleural effusions; CTA negative for PE but re-demonstrated moderate pulmonary edema with bilateral trace effusions - clinical picture most likely representing cardiomyopathy vs. pre- eclampsia w/ severe features - lab work significant for trop neg x2 and BNP elevated to 563 - echo performed 06/29: normal left ventricular systolic function, LVEF 60-65%, no regional wall motion abnormalities, no valvular pathology, borderline concentric LVH, no prior for comparison - Hence given echo, pulmonary edema most consistent with pre-eclampsia w/ severe features - s/p 40mg IV lasix in ER with good urine output; second dose of 40 mg IV lasix upon admission - Continue IV lasix 40 mg BID (started 06/29) Pre-eclampsia w/ severe features - pt with recent delivery 06/23 at 37 6/7 weeks secondary to pre-eclampsia w/o severe features - pt now with elevated BP, elevated liver enzymes, headache, double vision, epigastric/RUQ pain, 1+ proteinuria, and pulmonary edema qualifying her for pre- eclampsia w/ severe features; reassuringly, pt's platelets are WNL/elevated - CT head negative - s/p hydralazine 10 mg IV x1 in the ER - low suspicion for HELLP; pt's platelets remain WNL/elevated and no signs of hemolysis - will continue to monitor lab work and if any significant change in labs/symptoms - RUQ US performed 06/29 and unconcerning: Nonspecific borderline gallbladder wall thickening which may be secondary to the patient's fluid overload. No cholelithiasis identified. No biliary ductal dilation. - goal BP <140/90; will treat BP sustained >160/90 with PRN with labetalol or hydralazine - Per OB, her mag will be 24 hours at around 7pm so can be discontinued at that time. Hence, discontinue mag at 7 PM tonight 06/29. - otherwise as above Hypokalemia - K 3.4 in the ER; received 40 meq PO - repeat K 3.1; again, received 40 meq PO with the addition of K 40 meq IV - suspect continued drop secondary to diuresis - K of 3.2 this morning 06/29 - Will prescribe 40 meq potassium chloride PO BID Diet: regular OB diet Code: full DVT ppx: SCDs Dispo: admitted to PCU Admission and Anticipated Discharge Date Admission Date: June 28, 2024 Supervising Attestation I personally examined the patient and verified all goncalves points of history and exam, discussed case, and agree with decision making with Dr Santos and Adrianna Mejia MS4 Feeling betterstill some headache, still very fatigued. Dyspnea is better. Mildly better overall. Vitals noted, in general she is awake and alert fatigued but no distress. HEENT normocephalic atraumatic mucous membranes moist. Breathing unlabored no accessory muscle use good effort. Skin without rashes pallor or icterus. Pulmonary edemaappears to have all related to preeclampsia with severe featurescontinue blood pressure control and diuresis, continue supportive care, magnesium per OB. Anticipate she will continue to improve. LVH notedno longstanding history of hypertensionwill obviously need ongoing outpatient follow-up for this. Subjective Pt is a 39 yo female with recent delivery by repeat 06/23 who presented to the hospital due to SOB, chest pain, and elevated BP. Pt delivered her second child 06/[address] of C section at 37 6/7 weeks d/t pre eclampsia w/o severe features. Delivery was uncomplicated. Pt notes that she was discharged Wednesday (06/26). Today, she is still experiencing a headache which persists despite tylenol, rates as a 2-3/10. She began experiencing double vision this morning and had difficulty opening her eyes 2/2 the double vision. By the afternoon, the intensity of double vision had improved some. She is having epigastric and RUQ pain which are consistent in severity. Reports mild nausea. Still experiencing some chest pressure and SOB, but these have improved somewhat. Review of Systems Review of Systems: As per HPI. Physical Exam Physical Exam: GENERAL: Patient in no acute distress. HEENT: Head is atraumatic, normocephalic. Face symmetric. NECK: Full ROM, supple CHEST/LUNGS: Clear to auscultation throughout all lung buckner. No wheezes, rales, or crackles. CVS: S1 and S2 are regular without murmurs, gallops, or rubs. ABDOMINAL EXAM: Bowel sounds are present. Tender to palpation in midepigastrium and RUQ. NEUROLOGIC EXAM: Patient is awake, alert, and oriented. Pleasant and cooperative. Answers questions appropriately. Speech is clear. PSYCH: Appropriate mood and affect. Results & Data Vital Signs (Past 12 Hours) Vital Signs Temp Pulse Pulse Resp BP BP Pulse Ox 06/29/24 12:09 36.9 C 99 H 18 140/97 94 06/29/24 07:45 36.4 C L 79 17 150/90 H 95 06/29/24 07:30 36.5 C 82 18 139/92 92 06/29/24 06:47 81 06/29/24 06:45 149/95 H 06/29/24 06:42 91 H 12 93 06/29/24 06:33 87 17 88 L 06/29/24 06:30 144/90 H 06/29/24 06:30 144/90 H 06/29/24 06:24 82 18 89 L 06/29/24 06:21 80 19 90 06/29/24 06:15 139/91 06/29/24 06:03 80 19 91 06/29/24 06:00 143/83 H 06/29/24 05:39 80 19 90 06/29/24 05:30 76 18 90 06/29/24 05:21 78 18 90 06/29/24 05:00 145/89 H 06/29/24 04:45 135/87 06/29/24 04:45 135/87 06/29/24 04:45 135/87 06/29/24 04:42 82 19 92 06/29/24 04:30 77 17 92 06/29/24 04:15 72 21 92 06/29/24 04:15 138/88 06/29/24 04:15 138/88 06/29/24 04:15 138/88 06/29/24 04:00 75 20 92 06/29/24 04:00 143/86 H 06/29/24 04:00 143/86 H 06/29/24 04:00 36.6 C 06/29/24 03:45 139/89 06/29/24 03:36 72 19 92 06/29/24 03:30 68 20 93 06/29/24 03:30 141/94 H 06/29/24 03:24 69 20 92 06/29/24 03:15 144/94 H 06/29/24 03:12 85 23 95 06/29/24 03:03 80 15 97 06/29/24 03:00 132/87 06/29/24 03:00 132/87 06/29/24 02:51 84 23 94 06/29/24 02:48 83 17 95 06/29/24 02:46 120/99 06/29/24 02:46 120/99 06/29/24 02:33 79 23 96 06/29/24 02:30 132/86 06/29/24 02:30 132/86 06/29/24 02:30 132/86 06/29/24 02:30 132/86 06/29/24 02:30 132/86 06/29/24 02:27 79 18 97 06/29/24 02:15 129/90 06/29/24 02:15 129/90 06/29/24 02:06 83 17 95 06/29/24 02:03 81 13 96 06/29/24 01:45 132/84 06/29/24 01:42 84 12 94 06/29/24 01:30 135/87 06/29/24 01:30 135/87 O2 Del Method 06/29/24 12:09 Room Air 06/29/24 07:45 Room Air 06/29/24 07:30 Room Air 06/29/24 06:47 06/29/24 06:45 06/29/24 06:42 06/29/24 06:33 06/29/24 06:30 06/29/24 06:30 06/29/24 06:24 06/29/24 06:21 06/29/24 06:15 06/29/24 06:03 06/29/24 06:00 06/29/24 05:39 06/29/24 05:30 06/29/24 05:21 06/29/24 05:00 06/29/24 04:45 06/29/24 04:45 06/29/24 04:45 06/29/24 04:42 06/29/24 04:30 06/29/24 04:15 06/29/24 04:15 06/29/24 04:15 06/29/24 04:15 06/29/24 04:00 06/29/24 04:00 06/29/24 04:00 06/29/24 04:00 06/29/24 03:45 06/29/24 03:36 06/29/24 03:30 06/29/24 03:30 06/29/24 03:24 06/29/24 03:15 06/29/24 03:12 06/29/24 03:03 06/29/24 03:00 06/29/24 03:00 06/29/24 02:51 06/29/24 02:48 06/29/24 02:46 06/29/24 02:46 06/29/24 02:33 06/29/24 02:30 06/29/24 02:30 06/29/24 02:30 06/29/24 02:30 06/29/24 02:30 06/29/24 02:27 06/29/24 02:15 06/29/24 02:15 06/29/24 02:06 06/29/24 02:03 06/29/24 01:45 06/29/24 01:42 06/29/24 01:30 06/29/24 01:30 Laboratory Results 06/29/24 06/29/24 06/28/24 06:56 00:29 19:48 WBC 9.52 9.58 9.62 RBC 3.63 L 3.64 L 3.53 L Hgb 10.8 L 10.9 L 10.7 L Hct 32.2 L 32.8 L 32.2 L MCV 88.7 90.1 91.2 MCH 29.8 29.9 30.3 MCHC 33.5 33.2 33.2 RDW Std Deviation 45.1 46.7 H 47.0 H RDW Coeff of Aminta 13.8 14.1 14.2 Plt Count 408 H 387 370 MPV 9.1 L 9.1 L 9.1 L Immature Gran % (Auto) 2.0 Neut % (Auto) 68.4 Lymph % (Auto) 19.3 [place] % (Auto) 7.8 Eos % (Auto) 1.8 Baso % (Auto) 0.7 Neut # (Auto) 6.58 H Lymph # (Auto) 1.86 [place] # (Auto) 0.75 H Eos # (Auto) 0.17 Baso # (Auto) 0.07 Immature Gran # (Auto) 0.19 Absolute Nucleated RBC 0.03 0.04 0.05 Nucleated RBC % (auto) 0.3 0.4 0.5 PT INR APTT PTT Ratio Sodium 138 139 140 Potassium 3.2 L 3.2 L 3.1 L Chloride 99 100 104 Carbon Dioxide 28 28 26 Anion Gap 11 11 10 BUN 10 9 10 Creatinine 0.46 L 0.52 L 0.49 L Est Cr Clr Drug Dosing 170.8 154.9 164.8 Est GFR ( Amer) 146.3 140.5 143.2 Est GFR (Non-Af Amer) 126.2 121.2 123.6 BUN/Creatinine Ratio 21.7 H 17.3 20.4 H Glucose 67 L 74 79 Calcium 7.3 L 8.1 L 8.7 Magnesium (Sulf Ther) 3.8 L Total Bilirubin 0.6 0.6 0.5 AST 94 H 99 H 94 H ALT 86 H 85 H 78 H Alkaline Phosphatase 119 H 122 H 122 H Troponin I High Sens 12.6 B-Natriuretic Peptide 563 H Total Protein 6.2 6.4 6.3 Albumin 3.4 3.5 3.4 Globulin 2.8 2.9 2.9 Albumin/Globulin Ratio 1.2 1.2 1.2 Lipase Urine Color Urine Appearance Urine pH Ur Specific [place] Urine Protein Urine Glucose (UA) Urine Ketones Urine Blood Urine Nitrite Urine Bilirubin Urine Urobilinogen Ur Leukocyte Esterase Urine WBC (Auto) Urine RBC (Auto) U Hyaline Cast (Auto) U Epithel Cells (Auto) Urine Bacteria (Auto) 06/28/24 06/28/24 15:11 14:55 WBC 9.01 RBC 3.39 L Hgb 10.1 L Hct 31.3 L MCV 92.3 MCH 29.8 MCHC 32.3 RDW Std Deviation 48.1 H RDW Coeff of Aminta 14.3 Plt Count 344 MPV 9.2 L Immature Gran % (Auto) 1.9 Neut % (Auto) 70.9 Lymph % (Auto) 18.6 [place] % (Auto) 6.0 Eos % (Auto) 1.9 Baso % (Auto) 0.7 Neut # (Auto) 6.39 Lymph # (Auto) 1.68 [place] # (Auto) 0.54 Eos # (Auto) 0.17 Baso # (Auto) 0.06 Immature Gran # (Auto) 0.17 Absolute Nucleated RBC 0.02 Nucleated RBC % (auto) 0.2 PT 10.3 INR 0.9 APTT 25 PTT Ratio 0.9 Sodium 141 Potassium 3.4 L Chloride 107 Carbon Dioxide 26 Anion Gap 8 BUN 12 Creatinine 0.52 L Est Cr Clr Drug Dosing 155.3 Est GFR ( Amer) 140.5 Est GFR (Non-Af Amer) 121.2 BUN/Creatinine Ratio 23.1 H Glucose 76 Calcium 8.4 L Magnesium (Sulf Ther) Total Bilirubin 0.5 AST 76 H ALT 65 H Alkaline Phosphatase 110 H Troponin I High Sens 11.6 B-Natriuretic Peptide Total Protein 5.9 L Albumin 3.3 L Globulin 2.6 Albumin/Globulin Ratio 1.3 Lipase 5 L Urine Color Dark Yellow Urine Appearance Clear Urine pH 6.5 Ur Specific [place] 1.025 Urine Protein 1+ H Urine Glucose (UA) Negative Urine Ketones Negative Urine Blood Negative Urine Nitrite Negative Urine Bilirubin Negative Urine Urobilinogen Negative Ur Leukocyte Esterase Trace H Urine WBC (Auto) 0-5 Urine RBC (Auto) 0-2 U Hyaline Cast (Auto) 0-2 U Epithel Cells (Auto) 0-2 Urine Bacteria (Auto) None Seen
[2024-06-29] MEDS: ONDANSETRON INJ 2 MG/ML 2 ML VIAL IV PRN (17:25)
--- NOTE | 2024-06-29 18:03 | Billing Data ---
Date of Service June 29, 2024 Coding Level of Care Code 85176 SUB INP/OBS CARE 3MIN
[2024-06-29] MEDS: PROCHLORPERAZINE 5 MG in SYRINGE 4 ML IV ONE (20:54)
[2024-06-29] MEDS: POTASSIUM CHLORIDE CRTAB 20 MEQ TABCR PO ONE (20:56)
[2024-06-29] MEDS: PRENATAL VITAMIN 1 TAB PO SCH (20:57)
[2024-06-29] MEDS: HYDROmorphone INJ 0.5 MG/0.5 ML SYR ONE (21:26)
[2024-06-29] MEDS: HYDROmorphone INJ 0.5 MG/0.5 ML SYR IV STA (21:59)
[2024-06-29] MEDS: POTASSIUM CHLORIDE / WTR 10 MEQ/100 ML PLCT IV SCH (22:19)
[2024-06-29] MEDS: GADOBUTROL 65ML VIAL IV ONE (22:21)
--- NOTE | 2024-06-30 01:30 | Magnetic Resonance Report ---
Exam(s): MRI HEAD W/WO Contrast IV Amt: 9cc gadavist EXAM: MR Head Without and With Intravenous Contrast CLINICAL HISTORY: Double vision. TECHNIQUE: Magnetic resonance images of the head/brain without and with intravenous contrast in multiple planes. CONTRAST: Patient received 9cc gadavist of IV contrast COMPARISON: CT head 06/28/2024 FINDINGS: Brain: Unremarkable. No mass. No hemorrhage. No acute infarct. No pituitary mass. No abnormal enhancement. Ventricles: Unremarkable. No ventriculomegaly. Bones/joints: Unremarkable. No acute fracture. Sinuses: Unremarkable as visualized. No acute sinusitis. Mastoid air cells: Unremarkable as visualized. No mastoid effusion. Orbits: Unremarkable as visualized. IMPRESSION: 1. No acute finding. 2. No pituitary mass. Electronically signed by: Mague Zamorano MD 06/30/24 01:29 AM
[2024-06-30 04:48] LABS: Hematocrit (blood only) 35.4 % (37.0-47.0); Hemoglobin 11.7 g/dl (12.0-16.0); Mean Corpuscular Hemoglobin 29.8 pg (25.0-34.0); Mean Corpuscular Hgb Conc 33.1 g/dL (32.0-36.0); Mean Corpuscular Volume 90.1 fL (80.0-100.0); Mean Platelet Volume 8.5 fL (9.4-12.4); Platelet Count 451 K/uL (130-400); RDW Coefficient of Variation 13.9 % (11.5-14.5); RDW Standard Deviation 45.9 fL (36.4-46.3); Red Blood Count 3.93 M/uL (4.20-5.40); White Blood Count 10.09 K/ul (4.8-10.8)
[2024-06-30 05:11] LABS: Albumin Globulin Ratio 1.2 (0.9-2); Albumin Level 3.3 gm/dl (3.4-5.0); Bilirubin,Total 0.6 mg/dl (0.2-1.0); Calcium 6.7 mg/dl (8.6-10.3); Creatinine Clr Calc Pharmacy 128.8 ml/min; Est GFR (African American) 133.3 ml/min; Globulin 2.8 gm/dl (2.5-4.0); Potassium 3.5 mmol/L (3.5-5.1); Total Protein 6.1 gm/dl (6.0-8.3)
[2024-06-30] MEDS: CALCIUM GLUCONATE 1,000 MG/60 ML BAG IV STA (05:48)
[2024-06-30] MEDS: POTASSIUM CHLORIDE CRTAB 20 MEQ TABCR PO STA (05:53)
--- NOTE | 2024-06-30 06:09 | Communication Note ---
Date of Service: June 30, 2024 Pt evaluated ~8:00PM concerning worsening headache. Pt states headaches worse than the prior day and not having adequate relief with tylenol/ibuprofen. Pt also experiencing horizontal diplopia. Brain MRI ordered to evaluate for pituitary pathology (being ) or pre-eclampsia sequelae (ie, cerebral edema)- scan negative. Mag infusion stopped after 24hr period which seemed to improve pt's symptoms. Pt re-evaluated ~5:00AM d/t concern with tingling of her face, chest, hands, and legs. She also notes an increased relaxation of her hands (she puts her hands in a fist but then they seem to want to extend back into a flat palm). AM labs drawn showing Na 136, K 3.5, Cr 0.61, Ca 6.7. Pt ordered 1g Ca and 40 meq PO K. Also of note, pt's AST/ALT improving (38/63), Hgb increased to 11.7, and plt increased to 451. As pt's CBC appears to be showing signs of hemoconcentration and pt's breathing improved, would recommend re-evaluating continued need for diuresis. Resident Activity Tracking Resident Involvement: Resident Care Provided Care Provided: Adult Hospital Medicine
--- NOTE | 2024-06-30 07:42 | Obstetrical Progress Note ---
Date of Service June 30, 2024 Assessment & Plan (1) Preeclampsia, severe: POD#7 with preeclampsia, severe features - required magnesium, s/p 24h magnesium sulfate (completed 06/29 at 7pm). Labs trending towards normal. Has been stable BP on 10mg PO immediate release nifedipine, therefore I switched Rx to 30mg Procardia XL today - to see how she does with this before discharge home. When she gets the ok from medicine and cardiology services, will be likely anticipating DC home later today or tomorrow. Appreciate their expertise in her care as well. Trimester: unspecified trimester Qualified Code(s): O14.10 - Severe pre-eclampsia, unspecified trimester (2) state: Subjective Ambulation: ambulating normally Voiding: no voiding problems Diet Tolerance:: regular diet Lochia:: Moderate Awake, sitting up in bed, feeling much better. Has not been ambulating - encouraged SCD use in bed. Eating/drinking ok. Gibson in place. Happy that she has ankles again - swelling has improved. Review of Systems All systems reviewed & are unremarkable except as noted in HPI & below Physical Exam Constitutional WD/WN, vitals as above no acute distress Respiratory normal respiratory effort Cardiovascular Rate/Rhythm: regular rate and regular rhythm Gastrointestinal (Abdomen) Inspection/Auscultation: abdomen normal to inspection; abdomen not distended Percussion/Palpation: abdomen soft Genitourinary OB Exam Abdomen: + fundal height Fundus: + firm; not tender Results & Data Vital Signs (Past 12 Hours) Vital Signs Temp Pulse Pulse Resp BP Pulse Ox O2 Del Method 06/30/24 02:33 81 16 143/76 H 99 Room Air 06/30/24 02:15 88 139/86 06/30/24 00:00 79 16 124/80 96 Room Air 06/30/24 00:00 110 H 06/29/24 19:43 36.8 C 110 H 18 138/86 100 Room Air
[2024-06-30 07:58] VITALS: RESP 18
[2024-06-30] MEDS ORDERED: POTASSIUM CHLORIDE CRTAB 20 MEQ TABCR PO SCH (09:00)
[2024-06-30] MEDS: NIFEdipine EXTENDED REL 30 MG TABCR PO SCH (09:27)
--- NOTE | 2024-06-30 10:00 | Medical Student Progress Note ---
Date of Service June 30, 2024 Assessment & Plan (1) Preeclampsia, severe: Trimester: unspecified trimester Qualified Code(s): O14.10 - Severe pre-eclampsia, unspecified trimester (2) Pulmonary edema: Chronicity: acute Qualified Code(s): J81.0 - Acute pulmonary edema (3) Elevated BP without diagnosis of hypertension: (4) Hypocalcemia: Plan Pt is a 39 yo female with recent delivery by repeat 06/23 presenting to the hospital due to SOB, chest pain, and elevated BP. Pulmonary edema - CXR on 06/28 showing interstitial pulmonary edema with small bilateral pleural effusions; CTA negative for PE but re-demonstrated moderate pulmonary edema with bilateral trace effusions - clinical picture most likely representing cardiomyopathy vs. pre- eclampsia w/ severe features - lab work significant for trop neg x2 and BNP elevated to 563 - echo performed 06/29: normal left ventricular systolic function, LVEF 60-65%, no regional wall motion abnormalities, no valvular pathology, borderline concentric LVH, no prior for comparison - Hence given echo, pulmonary edema most consistent with pre-eclampsia w/ severe features - s/p 40mg IV lasix in ER with good urine output; second dose of 40 mg IV lasix upon admission - Was continued on IV lasix 40 mg BID while admitted (started 06/28) - Stop IV lasix 40 mg BID on 06/30 - pt's SOB and edema have resolved Pre-eclampsia w/ severe features - pt with recent delivery 06/23 at 37 6/7 weeks secondary to pre-eclampsia w/o severe features - pt now with elevated BP, elevated liver enzymes, headache, double vision, epigastric/RUQ pain, 1+ proteinuria, and pulmonary edema qualifying her for pre- eclampsia w/ severe features; reassuringly, pt's platelets are WNL/elevated - CT head negative - s/p hydralazine 10 mg IV x1 in the ER - low suspicion for HELLP; pt's platelets remain WNL/elevated and no signs of hemolysis - will continue to monitor lab work and if any significant change in labs/symptoms - RUQ US performed 06/29 and unconcerning: Nonspecific borderline gallbladder wall thickening which may be secondary to the patient's fluid overload. No cholelithiasis identified. No biliary ductal dilation. - LFTs are improving: ALT 63 ans AST 38 today - Headache worsened overnight; MRI head was ordered and normal; symptoms improved after Mag stopped - goal BP <140/90; will treat with Nifedipine 30 mg QAM, per OB recommendations; BP's well controlled - will plan to d/c home on this med - Mag was stopped after 24 hours at 7pm on 06/29 Hypokalemia - K 3.4 in the ER; received 40 meq PO - repeat K 3.1; again, received 40 meq PO with the addition of K 40 meq IV - suspect continued drop secondary to diuresis - Prescribed 40 meq potassium chloride PO BID while admitted - K of 3.5 this morning 06/30 - WNL - will recheck K around 1 PM - discontinue 40 meq potassium chloride PO BID upon discharge since we stopped diuretics and K+ has improved Hypocalcemia - Early this morning, pt had muscle cramps, tingling in face/hands, increased relaxation of her hands when trying to form fists - Ca of 6.7 - Pt given 1g Ca this morning - Will recheck Ca around 1 PM - Will also check vitamin D level, as vitamin D deficiency is common in our area and could be contributing Diet: regular OB diet Code: full DVT ppx: SCDs Dispo: admitted to PCU, potential d/c today Admission and Anticipated Discharge Date Admission Date: June 28, 2024 Subjective Pt is a 39 yo female with recent delivery by repeat 06/23 who presented to the hospital due to SOB, chest pain, and elevated BP. Pt delivered her second child 06/[address] of C section at 37 6/7 weeks d/t pre eclampsia w/o severe features. Delivery was uncomplicated. Pt notes that she was discharged Wednesday (06/26). Today, her headache is much improved. Occurs intermittently as a 2-3/10. Her double vision has resolved. She began experiencing symptoms of tingling, muscle twitches, and muscle spasms overnight. Her calcium was found to be low at 6.7, and she was given 1 g calcium. She is feeling better but still has some tingling and muscle twitching. She is having still having mild epigastric and RUQ/LUQ abdomen pain, but they have improved. Her nausea has also improved with eating. Her SOB and chest pressure have resolved. Review of Systems Review of Systems: As per HPI. Physical Exam Physical Exam: GENERAL: Patient in no acute distress. HEENT: Head is atraumatic, normocephalic. Face symmetric. NECK: Full ROM, supple CHEST/LUNGS: Clear to auscultation throughout all lung buckner. No wheezes, rales, or crackles. CVS: S1 and S2 are regular without murmurs, gallops, or rubs. ABDOMINAL EXAM: Bowel sounds are present. Mildly tender to palpation in midepigastrium, LUQ, RUQ. MSK: No bilateral LE edema. NEUROLOGIC EXAM: Patient is awake, alert, and oriented. Pleasant and cooperative. Answers questions appropriately. Speech is clear. PSYCH: Appropriate mood and affect. Results & Data Vital Signs (Past 12 Hours) Vital Signs Temp Pulse Pulse Resp BP Pulse Ox O2 Del Method 06/30/24 07:56 36.9 C 82 18 124/80 95 Room Air 06/30/24 02:33 81 16 143/76 H 99 Room Air 06/30/24 02:15 88 139/86 06/30/24 00:00 79 16 124/80 96 Room Air 06/30/24 00:00 110 H Laboratory Results 06/30/24 04:31 WBC 10.09 RBC 3.93 L Hgb 11.7 L Hct 35.4 L MCV 90.1 MCH 29.8 MCHC 33.1 RDW Std Deviation 45.9 RDW Coeff of Aminta 13.9 Plt Count 451 H MPV 8.5 L Sodium 136 Potassium 3.5 Chloride 99 Carbon Dioxide 28 Anion Gap 9 BUN 11 Creatinine 0.61 Est Cr Clr Drug Dosing 128.8 Est GFR ( Amer) 133.3 Est GFR (Non-Af Amer) 115.0 BUN/Creatinine Ratio 18.0 Glucose 105 H Calcium 6.7 L Total Bilirubin 0.6 AST 38 ALT 63 H Alkaline Phosphatase 111 H Total Protein 6.1 Albumin 3.3 L Globulin 2.8 Albumin/Globulin Ratio 1.2
[2024-06-30 10:53] VITALS: BP 117/78; PULSE 79; TEMP 98.6; O2SAT 93
[2024-06-30 13:19] LABS: Albumin Level 3.6 gm/dl (3.4-5.0); Bilirubin,Total 0.5 mg/dl (0.2-1.0); Calcium 8.1 mg/dl (8.6-10.3)
[2024-06-30 13:25] LABS: Albumin Globulin Ratio 1.2 (0.9-2); BUN Creatinine Ratio 18.6 (10-20); Creatinine Clr Calc Pharmacy 132.9 ml/min; Est GFR (African American) 134.8 ml/min; Est GFR (Non-African American) 116.3 ml/min; Total Protein 6.6 gm/dl (6.0-8.3)
--- NOTE | 2024-06-30 14:57 | Cardiology Progress Note ---
Date of Service June 30, 2024 Assessment & Plan (1) Preeclampsia, severe: (2) Pulmonary edema: (3) Elevated BP without diagnosis of hypertension: Plan Mrs. Gan is a 39-year-old female with a history of PSVT, PACs, Nephrolithiasis, Mild Cervical Spinal Stenosis, GERD, and Asthma who was re- admitted to [facility] on 06/28/24 with Pre-eclampsia, uncontrolled Hypertension, and Pulmonary Edema. Patient continues to do well. She continues to diurese, her negative fluid balance is 9949 mL as of this morning, and her blood pressure appears to be controlled for the most part. Her blood pressures have ranged from 117/78 to a high of 143/76 since being started on Nifedipine 10 mg t.i.d.. She was converted over to Nifedipine ER 30 mg daily as of this morning. She offers no complaints today. Her breathing is at baseline. She denies any orthopnea or PND. Patient has not had any angina pectoris or anginal equivalent symptoms, she no longer appears to be hypervolemic, and she has not had any evidence of arrhythmias. Her ALT, AST, and alkaline phosphatase are trending down. Her renal function remained stable. Recommend the followin. Continue magnesium sulfate drip as per pre-eclampsia protocal. 2. Continue to diurese for the time being. 3. Continue Nifedipine ER 30 mg daily. 4. May continue IV Hydralazine as needed for hypertension. 5. Monitor daily body weights, I&Os, and maintain a low-sodium diet. 6. Recommend a repeat Echocardiogram in 3-6 months to re-evaluate LVH. Patient is stable from a cardiac standpoint, volume standpoint, and blood pressure standpoint for discharge to home. We will plan on seeing her in the office 1-2 weeks after discharge to re-evaluate her blood pressure and volume status. Patient and her agree with this plan. Admission and Anticipated Discharge Date Admission Date: June 28, 2024 Supervising Physician Co-Signing Physician Notes Patient seen and examined. Agree with assessment and plan as outlined by Mr. Davis. Subjective Mrs. Gan continues to do well. She continues to diurese, her negative fluid balance is 9949 mL as of this morning, and her blood pressure appears to be controlled for the most part. Her blood pressures have ranged from 117/78 to a high of 143/76 since being started on Nifedipine 10 mg t.i.d.. She was converted over to Nifedipine ER 30 mg daily as of this morning. She offers no complaints today. She denies any chest pain, heaviness, tightness, or pressure. Her breathing is at baseline. She denies any orthopnea or PND. She denies any palpitations, syncope, or near-syncope. Her ALT, AST, and alkaline phosphatase are trending down. Her renal function remained stable. Review of Systems Review of Systems: As per HPI. Physical Exam Physical Exam: Blood pressure is 124/80, pulse 82 and regular, SpO2 is 95% on room air. GENERAL: Patient in no acute distress. HEENT: Head is atraumatic, normocephalic. EOM's intact. Facies symmetric. No perioral cyanosis. NECK: No JVD. JVP is not elevated. Carotid upstrokes are + 2 bilaterally. CHEST/LUNGS: Clear to auscultation throughout all lung buckner. No wheezes, rales, or crackles. CVS: S1 and S2 are regular without murmurs, gallops, or rubs. PMI is nonpalpable. No lifts, heaves, or thrills. No abdominal aortic or renal bruits. ABDOMINAL EXAM: Bowel sounds are present. EXTREMITIES: No clubbing or cyanosis. Trace bipedal edema. Intact radial pulses bilaterally. NEUROLOGIC EXAM: Patient is awake, alert, and oriented. Pleasant and cooperative. Answers questions appropriately. Speech is clear. 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 -- No arrhythmias identified. Results & Data Vital Signs (Past 12 Hours) Vital Signs Temp Pulse Pulse Resp BP Pulse Ox O2 Del Method 06/30/24 10:52 37.0 C 79 18 117/78 93 Room Air 06/30/24 08:00 83 06/30/24 07:56 36.9 C 82 18 124/80 95 Room Air Laboratory Results Laboratory Results - last 24 hr 06/30/24 06/30/24 04:31 12:46 WBC 10.09 RBC 3.93 L Hgb 11.7 L Hct 35.4 L MCV 90.1 MCH 29.8 MCHC 33.1 RDW Std Deviation 45.9 RDW Coeff of Aminta 13.9 Plt Count 451 H MPV 8.5 L Sodium 136 139 Potassium 3.5 4.0 Chloride 99 102 Carbon Dioxide 28 29 Anion Gap 9 8 BUN 11 11 Creatinine 0.61 0.59 L Est Cr Clr Drug Dosing 128.8 132.9 Est GFR ( Amer) 133.3 134.8 Est GFR (Non-Af Amer) 115.0 116.3 BUN/Creatinine Ratio 18.0 18.6 Glucose 105 H 104 H Calcium 6.7 L 8.1 L Total Bilirubin 0.6 0.5 AST 38 30 ALT 63 H 58 H Alkaline Phosphatase 111 H 115 H Total Protein 6.1 6.6 Albumin 3.3 L 3.6 Globulin 2.8 3.0 Albumin/Globulin Ratio 1.2 1.2 25-OH Vitamin D Total 33.3 Medications Administered Medication List Acetaminophen (Acetaminophen 325 Mg Tab) 650 mg PO Q4H PRN PRN Reason: Pain or Fever Stop: 07/28/24 22:15 Last Admin: 06/30/24 05:57 Dose: 650 mg Documented By: Admin: 06/29/24 16:52 Dose: 650 mg Documented By: Admin: 06/29/24 08:28 Dose: 650 mg Documented By: Admin: 06/29/24 03:04 Dose: 650 mg Documented By: Admin: 06/28/24 22:53 Dose: 650 mg Documented By: AURORA Docusate Sodium (Docusate Sodium Syrup 100 Mg/10 Ml Udc) 50 mg PO BID [facility] Stop: 07/29/24 11:29 Last Admin: 06/30/24 09:28 Dose: Not Given Documented By: Admin: 06/29/24 20:56 Dose: 50 mg Documented By: Admin: 06/29/24 11:40 Dose: 50 mg Documented By: Famotidine (Famotidine 20 Mg Tab) 20 mg PO BID [facility] Stop: 07/29/24 10:29 Last Admin: 06/30/24 09:27 Dose: 20 mg Documented By: Admin: 06/29/24 20:57 Dose: 20 mg Documented By: Admin: 06/29/24 11:40 Dose: 20 mg Documented By: Furosemide (Furosemide 40 Mg/4 Ml Vial) 40 mg IV BID17 [facility] Stop: 07/29/24 08:59 Last Admin: 06/29/24 16:56 Dose: 40 mg Documented By: Admin: 06/29/24 08:21 Dose: 40 mg Documented By: Lactated Ringer's (Lr) 1,000 mls @ 25 mls/hr IV .Q24H [facility] Stop: 07/29/24 03:59 Last Admin: 06/30/24 05:09 Dose: Not Given Documented By: Infusion: 06/30/24 05:09 Dose: Infused Documented By: Infusion: 06/30/24 02:10 Dose: 25 mls/hr Documented By: Infusion: 06/29/24 22:35 Dose: 25 mls/hr Documented By: Infusion: 06/29/24 21:30 Dose: 0 mls/hr Documented By: Admin: 06/29/24 11:42 Dose: 25 mls/hr Documented By: Ibuprofen (Ibuprofen 600 Mg Tab) 600 mg PO QID PRN PRN Reason: Pain Stop: 07/28/24 18:16 Last Admin: 06/29/24 18:51 Dose: 600 mg Documented By: Admin: 06/29/24 07:33 Dose: 600 mg Documented By: Admin: 06/28/24 19:12 Dose: 600 mg Documented By: RB Nifedipine (Nifedipine Extended Rel 30 Mg Tabcr) 30 mg PO [facility] Stop: 07/30/24 08:59 Last Admin: 06/30/24 09:27 Dose: 30 mg Documented By: CRUZ Ondansetron HCl (Ondansetron Inj 2 Mg/Ml 2 Ml Vial) 4 mg IV Q6H PRN PRN Reason: Nausea And Vomiting Stop: 07/28/24 18:38 Last Admin: 06/29/24 17:25 Dose: 4 mg Documented By: Prenat Multivit/System Controller/Iron/Folic Ac ( Vitamin 1 Tab) [address] [facility] Stop: 07/29/24 20:59 Last Admin: 06/29/24 20:57 Dose: 1 tab Documented By: ODETTE Sertraline HCl (Sertraline Hcl 100 Mg Tablet) [facility] Stop: 07/29/24 10:29 Last Admin: 06/30/24 09:27 Dose: 100 mg Documented By: Admin: 06/29/24 11:40 Dose: 100 mg Documented By: Discontinued Medications Docusate Sodium (Docusate Sodium Syrup 20mg/5ml 480ml) 50 mg PO BID [facility] Stop: 07/29/24 10:29 Last Admin: 06/29/24 12:15 Dose: Not Given Documented By: Furosemide (Furosemide 40 Mg/4 Ml Vial) 40 mg IV ONE ONE Stop: 06/28/24 16:49 Last Admin: 06/28/24 17:07 Dose: 40 mg Documented By: DAVID Furosemide (Furosemide 40 Mg/4 Ml Vial) 40 mg IV ONE ONE Stop: 06/28/24 20:00 Last Admin: 06/28/24 21:13 Dose: 40 mg Documented By: AURORA Gadobutrol (Gadobutrol 65ml Vial) 9 ml IV ONCE ONE Stop: 06/29/24 22:20 Last Admin: 06/29/24 22:21 Dose: 9 ml Documented By: Hydralazine HCl (Hydralazine Hcl 20 Mg/Ml Vial) 10 mg IV NOW STA Stop: 06/28/24 15:19 Last Admin: 06/28/24 15:28 Dose: 10 mg Documented By: DAVID Hydromorphone HCl (Hydromorphone Inj 0.5 Mg/0.5 Ml Syr) 0.5 mg IV NOW STA Stop: 06/29/24 21:22 Last Admin: 06/29/24 21:59 Dose: Not Given Documented By: ODETTE Hydromorphone HCl (Hydromorphone Inj 0.5 Mg/0.5 Ml Syr) Confirm Administered Dose 0.5 mg .ROUTE .STK-MED ONE Stop: 06/29/24 21:26 Last Admin: 06/29/24 21:26 Dose: 0.5 mg Documented By: ODETTE Magnesium Sulfate/Dextrose (Magnesium Sulfate / D5w) 1 gm in 100 mls @ 200 mls/hr IV Q30M [facility] Stop: 06/28/24 16:18 Last Infusion: 06/28/24 21:00 Dose: Infused Documented By: Admin: 06/28/24 17:06 Dose: 200 mls/hr Documented By: Infusion: 06/28/24 17:04 Dose: Infused Documented By: Admin: 06/28/24 15:30 Dose: 200 mls/hr Documented By: DAVID Sodium Chloride (Nss) 1,000 mls @ 100 mls/hr IV .Q10H [facility] Stop: 07/28/24 15:59 Last Infusion: 06/29/24 01:04 Dose: Infused Documented By: Admin: 06/28/24 17:15 Dose: 100 mls/hr Documented By: DAVID Acetaminophen (Ofirmev) 1,000 mg in 100 mls @ 400 mls/hr IV NOW STA Stop: 06/28/24 16:06 Last Infusion: 06/28/24 17:04 Dose: Infused Documented By: Admin: 06/28/24 16:22 Dose: 400 mls/hr Documented By: RUBIO Magnesium Sulfate (Magnesium Sulfate / Wtr) 40 gm in 1,000 mls @ 50 mls/hr IV .Q20H [facility] Stop: 07/28/24 16:59 Last Infusion: 06/29/24 12:33 Dose: Infused Documented By: Co-signed By: [facility] Infusion: 06/28/24 19:10 Dose: 50 mls/hr Documented By: RB Co-signed By: MAURY Infusion: 06/28/24 18:50 Dose: 150 mls/hr Documented By: RB Co-signed By: JENNA Admin: 06/28/24 17:58 Dose: 50 mls/hr Documented By: RB Co-signed By: ANEL Lactated Ringer's (Lr) 1,000 mls @ 125 mls/hr IV .Q8H [facility] Stop: 07/28/24 16:59 Last Infusion: 06/29/24 12:33 Dose: Infused Documented By: Admin: 06/28/24 18:07 Dose: 125 mls/hr Documented By: RB Potassium Chloride (K Bill / Wtr) 10 meq in 100 mls @ 100 mls/hr IV Q1H [facility] Stop: 06/29/24 01:29 Last Infusion: 06/29/24 03:20 Dose: Infused Documented By: Admin: 06/29/24 02:05 Dose: 100 mls/hr Documented By: Infusion: 06/29/24 01:54 Dose: Infused Documented By: Admin: 06/29/24 00:54 Dose: 100 mls/hr Documented By: Infusion: 06/29/24 00:54 Dose: Infused Documented By: JDax Admin: 06/28/24 23:54 Dose: 100 mls/hr Documented By: Infusion: 06/28/24 23:54 Dose: Infused Documented By: Admin: 06/28/24 23:07 Dose: 100 mls/hr Documented By: MiltonT Magnesium Sulfate (Magnesium Sulfate / Wtr) 40 gm in 1,000 mls @ 50 mls/hr IV .Q20H [facility] Stop: 07/28/24 22:29 Last Infusion: 06/29/24 20:30 Dose: Infused Documented By: GAGEG Co-signed By: PAH Infusion: 06/29/24 19:31 Dose: 50 mls/hr Documented By: ODETTE Co-signed By: MS Admin: 06/29/24 12:19 Dose: 50 mls/hr Documented By: Co-signed By: AML Prochlorperazine 5 mg/ Syringe 5 mls @ 5 mls/min IV ONE ONE Stop: 06/29/24 20:36 Last Admin: 06/29/24 20:54 Dose: 5 mls/min Documented By: ESNeftali Potassium Chloride (K Bill / Wtr) 10 meq in 100 mls @ 100 mls/hr IV Q1H [facility] Stop: 06/30/24 00:44 Last Infusion: 06/30/24 05:09 Dose: Infused Documented By: Admin: 06/30/24 02:10 Dose: 100 mls/hr Documented By: Infusion: 06/30/24 01:45 Dose: Infused Documented By: Admin: 06/30/24 00:45 Dose: 100 mls/hr Documented By: Infusion: 06/30/24 00:35 Dose: Infused Documented By: Admin: 06/29/24 23:35 Dose: 100 mls/hr Documented By: Infusion: 06/29/24 23:19 Dose: Infused Documented By: Admin: 06/29/24 22:19 Dose: 100 mls/hr Documented By: ESG Calcium Gluconate () 1,000 mg in 60 mls @ 240 mls/hr IV NOW STA Stop: 06/30/24 05:35 Last Infusion: 06/30/24 06:19 Dose: Infused Documented By: Admin: 06/30/24 05:48 Dose: 240 mls/hr Documented By: ESG Ioversol (Optiray 320 125ml) 99 ml IV ONCE ONE Stop: 06/28/24 16:10 Last Admin: 06/28/24 16:09 Dose: 99 ml Documented By: PLW Labetalol HCl (Labetalol Hcl Iv 5 Mg/Ml 20ml) 10 mg IV NOW STA Stop: 06/28/24 14:54 Last Admin: 06/28/24 15:19 Dose: Not Given Documented By: MMN Magnesium Sulfate (Mag Sulfate 4gm Bolus From Bag) 2 gm IV ONE ONE Stop: 06/28/24 16:57 Last Admin: 06/28/24 19:15 Dose: 2 gm Documented By: RB Co-signed By: MAURY Nifedipine (Nifedipine 10 Mg Cap) 10 mg PO Q8H [facility] Stop: 07/29/24 09:59 Last Admin: 06/30/24 02:18 Dose: 10 mg Documented By: Admin: 06/29/24 16:56 Dose: 10 mg Documented By: Admin: 06/29/24 10:56 Dose: 10 mg Documented By: Ondansetron HCl (Ondansetron Inj 2 Mg/Ml 2 Ml Vial) Confirm Administered Dose 4 mg .ROUTE .STK-MED ONE Stop: 06/28/24 18:52 Last Admin: 06/28/24 18:54 Dose: 4 mg Documented By: RB Potassium Chloride (Potassium Chloride Crtab 20 Meq Tabcr) 40 meq PO NOW STA Stop: 06/28/24 16:49 Last Admin: 06/28/24 17:04 Dose: 40 meq Documented By: AVM Potassium Chloride (Potassium Chloride Crtab 20 Meq Tabcr) 40 meq PO NOW STA Stop: 06/28/24 20:42 Last Admin: 06/28/24 21:14 Dose: 40 meq Documented By: JT Potassium Chloride (Potassium Chloride Crtab 20 Meq Tabcr) 40 meq PO NOW ONE Stop: 06/29/24 20:11 Last Admin: 06/29/24 20:56 Dose: 40 meq Documented By: GAGEG Potassium Chloride (Potassium Chloride Crtab 20 Meq Tabcr) 40 meq PO NOW STA Stop: 06/30/24 05:15 Last Admin: 06/30/24 05:53 Dose: 40 meq Documented By: ESG PG Care Time/CCT Total # of Minutes Spent Total Time Spent with Patient: Total time spent is greater than 50% in coordination of care (as documented) at patient's floor/unit and/or counseling patient:35 [place] [address] SUB INP/OBS CARE 3/50MIN Patient Type Established Medical Decision Making High Complexity Diagnoses Severe pre-eclampsia, antepartum O14.10 Trimester: unspecified trimester Acute pulmonary edema J81.0 Chronicity: acute Elevated BP without diagnosis of hypertension R03.0 Time Spent (min) 55 (1) Preeclampsia, severe Trimester: unspecified trimester Qualified Code(s): O14.10 - Severe pre- eclampsia, unspecified trimester (2) Pulmonary edema Chronicity: acute Qualified Code(s): J81.0 - Acute pulmonary edema
--- NOTE | 2024-06-30 15:39 | Discharge Summary ---
Date of Service June 30, 2024 Admission HPI Per Admitting Provider Pt is a 39 yo female with recent delivery by repeat 06/23 presenting to the hospital due to SOB, chest pain, and elevated BP. Pt delivered her second child 06/[address] of C section at 37 6/7 weeks d/t pre eclampsia w/o severe features. Delivery was uncomplicated. Pt notes that she was discharged Wednesday. On Wednesday, she began to feel anxious and SOB. She noticed that she could not breath while lying down. Her chest felt heavy and she was having trouble catching her breath. Her legs had also been swelling with the swelling going up her legs into her knees. She also describes an odd sensation of leg spasms/twitching/restless legs. She was checking her BPs at home, which had previously been normal, and found them to be elevated to 160-170s which prompted her to seek medical attention in the ER today. Her first was uncomplicated. She has no hx of chronic HTN. She does have a hx of SVT/frequent PACs for which she was not medicated. No other significant PMH. In the ER, pt was given labetalol 10 mg IV x1, hydralazine 10 mg IV x1, lasix 40 mg IV, PO potassium 40 meq, 1g tylenol, and 4g of mag and started on an IV mag drip. Pt originally admitted by OB but has since been transferred to medicine service. Cardio also consulted. Admission Exam Per Admitting Provider Constitutional: NAD, vitals WNL. Eyes: Conjunctivae normal. Respiratory: CTA bilaterally. Non labored breathing. No rhonchi, wheezing, or crackles. Cardiovascular: RRR. No murmurs noted. Bilateral 1+ pitting LE edema. Gastrointestinal (Abdomen): Epigastric tenderness. Skin: No rashes or skin lesions noted. Neurologic: Sensation grossly intact. No FND appreciated. Psychiatric: Speech of normal pace and content. Mood and affect congruent. Principal Diagnosis preeclampsia Discharge Exam GENERAL: Patient in no acute distress. HEENT: Head is atraumatic, normocephalic. Face symmetric. NECK: Full ROM, supple CHEST/LUNGS: Clear to auscultation throughout all lung buckner. No wheezes, ra les, or crackles. CVS: S1 and S2 are regular without murmurs, gallops, or rubs. ABDOMINAL EXAM: Bowel sounds are present. Mildly tender to palpation in midepigastrium, LUQ, RUQ. MSK: No bilateral LE edema. NEUROLOGIC EXAM: Patient is awake, alert, and oriented. Pleasant and cooperative. Answers questions appropriately. Speech is clear. PSYCH: Appropriate mood and affect. Discharge Data Allergies Allergy/AdvReac Type Severity Reaction Status Date / Time cephalexin [From Keflex] Allergy Intermediate Rash Verified 06/28/24 16:48 metformin Allergy Mild Rash Verified 06/28/24 16:48 neomycin Allergy Mild Rash Verified 06/28/24 16:48 nickel Allergy Mild cellulitus Verified 06/28/24 16:48 type rash polymyxin B Allergy Mild Rash Verified 06/28/24 16:48 aspirin AdvReac Mild Fever Verified 06/28/24 16:48 Consultations 06/28/24 15:38 ED Decision to Admit Stat 06/28/24 18:50 Consult Cardiology Stat Ordered Studies 06/28/24 15:46 CT angio chest PE protocol Stat 06/28/24 15:52 CT head/brain wo con Stat 06/29/24 06:19 US RUQ [US liver] Urgent 06/29/24 20:51 MR brain pituitary wo/w con Stat Hospital Course (1) Preeclampsia, severe: (2) Pulmonary edema: (3) Elevated BP without diagnosis of hypertension: (4) Hypocalcemia: Plan Pt is a 39 yo female with recent delivery by repeat 06/23 presenting to the hospital due to SOB, chest pain, and elevated BP. Pulmonary edema - CXR on 06/28 showing interstitial pulmonary edema with small bilateral pleural effusions; CTA negative for PE but re-demonstrated moderate pulmonary edema with bilateral trace effusions - clinical picture most likely representing cardiomyopathy vs. pre- eclampsia w/ severe features - lab work significant for trop neg x2 and BNP elevated to 563 - echo performed 06/29: normal left ventricular systolic function, LVEF 60-65%, no regional wall motion abnormalities, no valvular pathology, borderline concentric LVH, no prior for comparison - Hence given echo, pulmonary edema most consistent with pre-eclampsia w/ severe features - s/p 40mg IV lasix in ER with good urine output; second dose of 40 mg IV lasix upon admission - Was continued on IV lasix 40 mg BID while admitted (started 06/28) - Stop IV lasix 40 mg BID on 06/30 - pt's SOB and edema have resolved Pre-eclampsia w/ severe features - pt with recent delivery 06/23 at 37 6/7 weeks secondary to pre-eclampsia w/o severe features - pt now with elevated BP, elevated liver enzymes, headache, double vision, epigastric/RUQ pain, 1+ proteinuria, and pulmonary edema qualifying her for pre- eclampsia w/ severe features; reassuringly, pt's platelets are WNL/elevated - CT head negative - s/p hydralazine 10 mg IV x1 in the ER - low suspicion for HELLP; pt's platelets remain WNL/elevated and no signs of hemolysis - will continue to monitor lab work and if any significant change in labs/symptoms - RUQ US performed 06/29 and unconcerning: Nonspecific borderline gallbladder wall thickening which may be secondary to the patient's fluid overload. No cholelithiasis identified. No biliary ductal dilation. - LFTs are improving: ALT 63 ans AST 38 today - Headache worsened overnight; MRI head was ordered and normal; symptoms improved after Mag stopped - goal BP <140/90; will treat with Nifedipine 30 mg QAM, per OB recommendations; BP's well controlled - will plan to d/c home on this med - Mag was stopped after 24 hours at 7pm on 06/29 Hypokalemia - K 3.4 in the ER; received 40 meq PO - repeat K 3.1; again, received 40 meq PO with the addition of K 40 meq IV - suspect continued drop secondary to diuresis - Prescribed 40 meq potassium chloride PO BID while admitted - K of 3.5 this morning 06/30 - WNL - discontinue 40 meq potassium chloride PO BID upon discharge since we stopped diuretics and K+ has improved Hypocalcemia - Early this morning, pt had muscle cramps, tingling in face/hands, increased relaxation of her hands when trying to form fists - Ca of 6.7 - Pt given 1g Ca this morning - Will recheck Ca around 1 PM - Ca WNL at discharge - Vitamin D level WNL at discharge Diet: regular OB diet Code: full DVT ppx: SCDs Dispo: admitted to PCU, potential d/c today Total Time Total Time Spent Total Time Spent (In Minutes): <30 Discharge Plan Discharge Items Patient Disposition: Home - Self-Care Reason For Visit: PREECLAMPSIA, Discharge Diagnosis: Preeclampsia Activity: Resume your previous activity Activity Comment: as tolerated Non-emergency contact: Primary Care Provider, Pump Operator and Tenant Coordinator Call non-emergency contact if: you have any medication questions and your symptoms worsen Follow-up/Referrals: Mateus Davis PA-C [Physician Field Producer] - 07/07/24 2:30 pm (follow up appointment with Mateus Davis: 07/07/24 @ 2:30pm) Ghazala Fuchs DO [Primary Care Provider] - Diet: Regular OB Addtl Attending Provider Instructions: You were admitted to the hospital for preeclampsia. You were treated with magnesium per protocol, diuretics for fluid overload. We monitored your electrolytes while you were here and repleted them as necessary. You had an echocardiogram to evaluate your heart which was normal. You were started on blood pressure medication, you should continue to take this medication until you follow up with primary care, OB, and cardiology. We will send a prescription for this medication to your pharmacy. A discharge summary will be sent to your primary care physician to ensure continuity of care. Please bring this discharge summary with you to your next office appointment so that your provider can review it at that time. Follow-up appointments: Make a follow-up appointment with your PCP within the next week. It is very important that you follow up with them shortly after discharge from the hospital. The cardiology office should reach out to schedule a follow up appointment. If you do not hear from them Wednesday of next week you should call their office to schedule. Keep all your follow-up appointments as already scheduled. If you cannot make an appointment, notify your provider. Medications: Your medication list has been reviewed and reconciled upon discharge to ensure accuracy and continuity of care. An updated list of all your medications is included with your hospital discharge paperwork. Please review this list closely, and make note of any changes. We sent a new medication called nifedipine to your pharmacy. Take nifedipine (30mg) one tablet daily. If you have any issues filling these prescriptions, please call [phone] and ask to leave a message for Dr. Arthur Santos. Take your medications as instructed; do not skip a dose of your medicines. Make sure all of your doctors know every medicine you are taking (including [id number] medicines, vitamins, and supplements). Call your primary care provider before taking any new medicines (including [id number] medicines, vitamins, and supplements), because some of these may interact with your current medications, or may make your symptoms worse. Tell your primary care provider if you cannot afford your medications. CONTACT YOUR PRIMARY CARE PROVIDER if you experience any of the following: Increased swelling Increased shortness of breath Difficulty following your treatment plan, or difficulty taking medications CALL 911 OR GO TO THE EMERGENCY DEPARTMENT if you experience any of the following: Sudden, severe abdominal pain or nausea/vomiting Severe chest pain, or chest pain that radiates (moves) to your jaw or arm Sudden, severe shortness of breath or difficulty breathing Thank you for allowing us to participate in your care. Pending Studies at Discharge: No Stand-Alone Forms: My [facility] Medications and DC Order Prescriptions: New nifedipine [Procardia XL] 30 mg Tablet Extended Release 24hr 30 mg PO QAM Qty: 30 1RF Continued ondansetron 4 mg tablet,disintegrating 4 mg PO Q8H PRN (Reason: nausea and vomiting) Qty: 20 1RF (DME) breast pump Device See Rx Instructions .MEDSUPPLY Qty: 1 0RF Rx Instructions: As directed hydrocortisone [Anusol-HC] 2.5 % cream with perineal applicator 1 applic GA DAILY PRN (Reason: hemorrhoids) Qty: 30 0RF sertraline 100 mg tablet 100 mg PO QAM albuterol sulfate 90 mcg/actuation HFA aerosol inhaler 2 puff inhalation QID PRN (Reason: Wheezing) Rx Instructions: 2 puff inhaled as needed; prn docusate sodium 50 mg Capsule 50 mg PO BID pyridoxine (vitamin B6) [Vitamin B-6] 50 mg Tablet 50 mg PO BID doxylamine succinate 25 mg Tablet 12.5 mg PO HS PRN (Reason: Morning Sickness) famotidine 20 mg Tablet 20 mg PO BID oxycodone 5 mg tablet 5 mg PO Q6H PRN (Reason: pain) Qty: 20 0RF vit-iron fum-folic ac 65 mg iron- 1 mg Tablet 1 tab PO HS Discharge Orders: Discharge Order (Routine); Ordered 06/30/24 Ordered By: Arthur Sweet/Other Patient Handouts: Understanding Preeclampsia Admission Data Admit Date/Time: 06/28/24 16:56 Attending Provider: Neisha Campos Admit Provider: Neisha Campos Primary Care Provider: Ghazala Fuchs Other Providers: Neisha Campos; Cyrus Garcia Jr; Manny Duong Other Interventions: Discharge Summary Assessment (RN) Last Done: 06/30/24 15:46 Supervising Physician Co-Signing Physician Notes I personally examined the patient and verified all goncalves points of history and exam, discussed case, and agree with decision making with Dr Santos and Adrianna Mejia MS4 Feeling better overall. headache better. Did have some cramping earlieralleviated after getting extra calcium. Breathing much better. Feels up to going home. Vitals noted, in general she is awake and alert pleasant no distress. HEENT normocephalic atraumatic mucous membranes moist. Breathing unlabored no accessory muscle use good effort. Skin without rashes pallor or icterus. Pulmonary edemaappears to have all related to preeclampsia with severe features Overall safe/stable for home. Blood pressure management for nowexpect this to improve over timediscussed home blood pressure monitoring and symptoms to watch forand working together with PCP and OB to titrate blood pressure meds down as needed. Edema has resolved enough that no further diuresis is necessary. LVHfollow-up echo in 3-6 months. Hypokalemia resolved. Hypocalcemiavitamin D was 33so this too was probably also related to fluid shifting, although it seems to be surprisingly symptomatic. Stable for home, outpatient follow-up, otherwise as above Resident Activity Tracking Resident Involvement: Resident Care Provided Care Provided: Adult Hospital Medicine
--- NOTE | 2024-06-30 17:54 | Billing Data ---
Date of Service June 30, 2024 Coding Level of Care Code 83558 IN/OBS DISCH 30 MIN/LESS
== END 2024-06-30 18:08 | disposition home or self-care (01) | DRG 776 ==
LOC: ED 14:24 → 4S1 16:56 → 2E 20:32